=== PATIENT | male | born 1955 | race Caucasian/White ===

== ENCOUNTER 2019-09-01 04:45 | Inpatient (IN) | payer MEDICARE, MEDICAID ==
[~2019-09-01] VITALS: Ht 182.9 cm; Wt 141.5 kg
[2019-09-01] MEDS ORDERED: POTA1TAB14 PO (04:55)
[2019-09-01] MEDS ORDERED: CARV6.25 PO (05:39)
[2019-09-01] MEDS ORDERED: FURO80TA2 PO (05:39)
[2019-09-01] MEDS ORDERED: ATOR1TAB19 PO (05:39)
[2019-09-01] MEDS ORDERED: ALLO100T PO (05:39)
[2019-09-01] MEDS ORDERED: GLYB125TA PO (05:39)
[2019-09-01] MEDS ORDERED: ASPI81TA33 PO (05:39)
[2019-09-01] MEDS ORDERED: SPIR50TA4 PO (05:39)
[2019-09-01 06:20] LABS: BASO # 0.1 10^3/uL (0.0-0.2); BASO % 0.4 % (0.0-1.0); EOS % 0.1 % (0.0-3.0); HEMATOCRIT 45.3 % (42.0-52.0); HEMOGLOBIN 14.8 g/dl (13.5-17.5); LYMPH # 1.3 10^3/uL (1.5-5.0); LYMPH % 6.1 % (24.0-44.0); MEAN CORPUSCULAR HEMOGLOBIN 28.9 pg (27.0-33.0); MEAN CORPUSCULAR HGB CONC 32.7 g/dl (32.0-36.5); MEAN CORPUSCULAR VOLUME 88.5 fl (80.0-96.0); MONO % 10.1 % (0.0-5.0); NEUTROPHILS # 16.5 10^3/uL (1.5-8.5); NEUTROPHILS % 80.1 % (36.0-66.0); PLATELET COUNT, AUTOMATED 145 10^3/uL (150-450); RED BLOOD COUNT 5.12 10^6/uL (4.30-6.10); WHITE BLOOD COUNT 20.6 10^3/uL (4.0-10.0)
[2019-09-01 06:23] LABS: MONO # 2.1 10^3/uL (0.0-0.8)
[2019-09-01 06:32] LABS: ALBUMIN 3.7 GM/DL (3.2-5.2); ALT/SGPT 29 U/L (12-78); BILIRUBIN,DIRECT 0.3 MG/DL (0.0-0.2); BILIRUBIN,TOTAL 1.1 MG/DL (0.2-1.0); BLOOD UREA NITROGEN 107 MG/DL (7-18); CALCIUM LEVEL 9.6 MG/DL (8.8-10.2); CARBON DIOXIDE LEVEL 24 MEQ/L (21-32); CHLORIDE LEVEL 95 MEQ/L (98-107); CK-MB VALUE MASS < 1.0 NG/ML (<3.6); CPK CREATINE PHOSPHOKINASE 54 U/L (39-308); CREATININE FOR GFR 3.57 MG/DL (0.70-1.30); GLOMERULAR FILTRATION RATE 18.4 (>49); GLUCOSE, FASTING 191 MG/DL (70-100); MB/CK RELATIVE INDEX 1.85 (< OR =4); NT-PRO BNP 2589 PG/ML (<125); POTASSIUM SERUM 5.2 MEQ/L (3.5-5.1); SODIUM LEVEL 131 MEQ/L (136-145); TROPONIN I < 0.02 NG/ML (< 0.10)
[2019-09-01 07:06] LABS: INR 1.26; PROTHROMBIN TIME 15.5 SECONDS (11.8-14.0)
[2019-09-01 07:07] LABS: PARTIAL THROMBOPLASTIN TIME 28.6 SECONDS (25.0-38.4)
[2019-09-01] MEDS: HumaLOG INSULIN (NovoLOG) PER UNIT SC SCH ×4 (07:30→21:00)
--- NOTE | 2019-09-01 07:54 | REPVR ---
PROCEDURE INFORMATION: Exam: US Duplex Bilateral Lower Extremity Veins Exam date and time: 09/01/19 (7:07am) Age: 64 years old Clinical history: Bilateral leg pain and swelling. History of DVT. TECHNIQUE: Imaging protocol: Real-time duplex ultrasound of the Bilateral Lower Extremities with 2-D galo scale, color Doppler flow and spectral waveform analysis with image documentation. Complete exam focused on the bilateral lower extremity veins. COMPARISON: No relevant prior studies available FINDINGS: Right deep veins: (+) Occlusive thrombus extends from the right CFV to the right PTV trunk. Right superficial veins: Clot also seen in the right GSV vein, extending to the mid thigh level. Left deep veins: (+) Occlusive thrombus extends from the left CFV to the left PTV trunk. Left superficial veins: Clot also seen in the left GSV vein, extending 1 cm from the saphenofemoral junction. IMPRESSION: Bilateral deep venous thrombosis. Superficial clot also seen, bilaterally, involving the GSV vein. Electronically signed by: Samreen Ozuna On 09/01/2019 07:54:02 AM
[2019-09-01] MEDS ORDERED: GLUCAGON FOR INJ 1 MG VIAL (J1610) SC PRN (08:00)
[2019-09-01] MEDS ORDERED: DEXTROSE 50% 50 ML SYRINGE IV PRN (08:00)
[2019-09-01] MEDS ORDERED: GLUCOSE 4 GM CHEW TABLET PO PRN (08:00)
--- NOTE | 2019-09-01 08:20 | HPEPDOC ---
[facility] Medical History & Physical Date of Admission Sep 01, 2019 Date of Service: Sep 01, 2019 Attending Physician: CHALO GARCIA MD History and Physical CHIEF COMPLAINT: Shortness of Breath HISTORY OF PRESENT ILLNESS: 64-year-old male with past medical history of atrial fibrillation, CHF, status post pacemaker/AICD placement, coronary artery disease, open heart surgery (mitral of repair/replacement), chronic kidney disease, diabetes mellitus, DVT/PE status post IVC filter was recently admitted at another facility for acute on chronic kidney disease and discharged earlier this week, now presents to [facility] with worsening lower extremity swelling and dyspnea on exertion. Patient reports that he underwent a VQ scan at the other facility about 5-6 days ago which was negative, reports worsening swelling in bilateral lower extremities with tenderness in the calves bilaterally, denies any short of breath at rest but unable to walk more than 5- 10 feet before developing significant dyspnea on exertion. Patient was noted to desat into the 80s when asked to sit up in the bed for examination, otherwise, satting over 95%. He reports taking Xarelto for atrial fibrillation up until February of this year, when he had his open heart surgery he was told there were going to do something where he would no longer need anticoagulation, questionable removal of atrial appendages. He also reports placement of an IVC filter 5 years ago when he was diagnosed with DVT/PE. Otherwise, he denies any chest pain, nausea, vomiting, abdominal pain or diarrhea at this time. 10 point review of system is negative except for above PAST MEDICAL HISTORY: 1. CHF. 2. Atrial fibrillation. 3. Diabetes mellitus. 4. Coronary artery disease. 5. DVT/PE. 6. Chronic kidney disease PAST SURGICAL HISTORY: 1. Open-heart surgery (mitral valve repair/replacement). 2. Cholecystectomy. SOCIAL HISTORY: Never smoker. Denies alcohol. Denies drug use FAMILY HISTORY: Parents with lung cancer and throat cancer ALLERGIES: Please see below. HOME MEDICATIONS: Please see below. PHYSICAL EXAMINATION: VITAL SIGNS: Please see below. GENERAL: No distress, morbidly obese HEENT: Normocephalic, atraumatic, moist mucous membranes NECK: Supple CARDIOVASCULAR EXAMINATION: S1, S2, distant, no murmurs RESPIRATORY EXAMINATION: Clear to auscultation, diminished in the bases, no wheezing ABDOMINAL EXAMINATION: Soft, nontender, nondistended, positive bowel sounds EXTREMITIES: Bilateral lower extremity pitting edema SKIN: No rash NEUROLOGICAL EXAMINATION: Alert and oriented 3, no focal deficits PSYCHIATRIC EXAMINATION: Calm and cooperative LABORATORY DATA: See below. IMAGING: Lower extremity Doppler with bilateral lower extremity DVTs MICROBIOLOGY: Please see below. ASSESSMENT: 64-year-old male with extensive medical history who was recently hospitalized, presents with lower sugar swelling and shortness of breath, found to have bilateral lower extremity DVTs. PLAN: 1. Bilateral DVTs. Reportedly has an IVC filter, placed 5 years ago, heparin drip started with bolus, ED contacted vascular surgery for possible intervention. Clinically patient does not appear to have massive/submassive PE at this time, if shortness of breath is related to PE, it would not change the management at this time, cannot have CTA due to poor renal function, no acute indication for VQ scan at this time. 2. CHF. Status post pacemaker/AICD, TTE pending, volume status appears close to patient's baseline, continue oral Lasix at home meds for now. 3. Coronary artery disease. Stable, continue home meds. (Aspirin, statin, beta braden) 4. Diabetes mellitus. Sliding scale insulin with fingersticks before every meal and at bedtime 5. Atrial fibrillation. Reportedly had surgical intervention to prevent embolic phenomena (possible removal of atrial appendage), continue rate control with Coreg. DVT prophylaxis: On heparin drip. GI prophylaxis: Not needed at this time Vital Signs Vital Signs Date Time Temp Pulse Resp B/P (MAP) Pulse Ox O2 Delivery O2 Flow Rate FiO2 09/01/19 07:00 60 129/72 (91) 97 09/01/19 04:45 96.6 20 Room Air Laboratory Data Labs 24H Laboratory Tests 2 09/01/19 05:59: Immature Granulocyte % (Auto) 3.2H, Neutrophils (%) (Auto) 80.1H, Lymphocytes (%) (Auto) 6.1L, Monocytes (%) (Auto) 10.1H, Eosinophils (%) (Auto) 0.1, Basophils (%) (Auto) 0.4, Neutrophils # (Auto) 16.5H, Lymphocytes # (Auto) 1.3L, Monocytes # (Auto) 2.1H, Eosinophils # (Auto) 0.0, Basophils # (Auto) 0.1, Nucleated Red Blood Cells % (auto) 0.0, Anion Gap 12, Glomerular Filtration Rate 18.4L, Calcium Level 9.6, Total Bilirubin 1.1H, Direct Bilirubin 0.3H, Aspartate Amino Transf (AST/SGOT) 25, Alanine Aminotransferase (ALT/SGPT) 29, Alkaline Phosphatase 143H, Total Creatine Kinase 54, Creatine Kinase MB < 1.0, Creatine Kinase MB Relative Index 1.85, Troponin I < 0.02, XX-Sgu-K-Type Natriuretic Peptide 2589H, Total Protein 8.0, Albumin 3.7, Albumin/Globulin Ratio 0.86L 09/01/19 06:42: Prothrombin Time 15.5H, Prothromb Time International Ratio 1.26, Activated Partial Thromboplast Time 28.6 09/01/19 07:07: Lactic Acid Level 1.7 CBC/BMP Laboratory Tests 09/01/19 05:59 Microbiology Microbiology 09/01/19 Blood Culture, Received Pending Home Medications Scheduled Allopurinol (Allopurinol) 100 Mg Tablet, 100 MG PO DAILY Aspirin (Aspirin EC) 81 Mg Tablet.dr, 81 MG PO DAILY Atorvastatin Calcium (Atorvastatin Calcium) 10 Mg Tablet, 10 MG PO daily Carvedilol (Carvedilol) 6.25 Mg Tablet, 6.25 MG PO BID Furosemide (Furosemide) 80 Mg Tablet, 80 MG PO DAILY Glyburide (Glyburide) 1.25 Mg Tablet, 1.25 MG PO DAILY Potassium Chloride (Potassium Chloride) 20 Meq Tablet.er, 60 MEQ PO BID Spironolactone (Spironolactone) 50 Mg Tablet, 50 MG PO BID PT STATES RECENT INCREASE IN DOSE Allergies Coded Allergies: No Known Drug Allergies (Verified Allergy, Unknown, 09/01/19) A-FIB/CHADSVASC A-FIB History Current/History of A-Fib/PAF?: Yes Current PO Anticoag Therapy: Yes CHALO GARCIA MD Sep 01, 2019 08:20
[2019-09-01] MEDS ORDERED: HEPARIN SOD (PORCINE) 5000 UNITS/ML VIAL IV ONE (08:30)
--- NOTE | 2019-09-01 08:39 | REP ---
Portable chest x-ray: Single view. History: Dyspnea and cough. Findings: Monitoring electrodes are seen. A multi lead pacemaker is noted in the heart via the left side. The lungs are well inflated and clear. Heart size is normal. A aortic valve replacement ring is visible. Pulmonary vasculature is not increased. Pleural angles are sharp. Impression: No active disease. Status post aortic valve replacement. Pacemaker. Electronically Signed by Kenny Spain MD 09/01/2019 08:30 A
[2019-09-01] MEDS: HEPARIN DRIP 25,000 UNITS in IV 1 EA IV SCH (09:42)
[2019-09-01 10:42] VITALS: BP 142/88
[2019-09-01 11:33] VITALS: BP 142/78
--- NOTE | 2019-09-01 11:33 | CR.PDOC ---
General Date of Consultation: Sep 01, [address] Valente. HPI: HISTORY OF PRESENT ILLNESS: 64-year-old male admitted to [place] for acute on chronic kidney disease and discharged earlier this week. Admitted to [facility] 09/01/19 with worsening lower extremity swelling and dyspnea on exertion. Patient reports that he underwent a VQ scan at the other facility about 5-6 days ago which was negative. The pt reports worsening swelling in bilateral lower extremities with tenderness in the calves bilaterally for the past 5-6 days. Pt denies dyspnea at rest but reports [place] with walking 5-10 feet. The pt reports a h/o DVT RLE and IVC filter placement about 4-5 yrs ago at another facility. States he was on Coumadin was that it was d/cd 05/29. Denies any fevers, chills, chest pain, nausea, vomiting, abdominal pain,tyson rrhea, urinary complaints at this time. Vascular Surgery consulted, TTE pending. PAST MEDICAL HISTORY: CAD VHD CHF Atrial fibrillation states was taken off Coumadin 05/29. Diabetes mellitus. H/O DVT RLE/IVC filter placement CKD IV PAST SURGICAL HISTORY: mitral valve replacement status post pacemaker/AICD placement Cholecystectomy IVC filter 2013 SOCIAL HISTORY: Non smoker. Denies alcohol. Denies drug use FAMILY HISTORY: Parents with lung cancer and throat cancer, denies FH of clotting disorder. ROS: As noted in HPI, otherwise 11pt ROS of systems reviewed and unremarkable. PE: GEN: 64yoM, No acute distress, sitting resting in bed. Alert and oriented x 3. HEENT: Normocephalic, atraumatic. Moist mucous membranes. CHEST: +S1, +S2 LUNGS: Clear to auscultation bilaterally. No accessory muscle use. ABD: Round, soft, non-tender, non-distended. +Bowel sounds throughout. EXT: Ecchymosis Rt calf area, TTP Rt calf area, edema BL LEs. NEURO: Alert and oriented x 3. Cranial nerves III-XII are intact. No focal deficits appreciated. LE US PROCEDURE INFORMATION: Exam: US Duplex Bilateral Lower Extremity Veins Exam date and time: 09/01/19 (7:07am) Age: 64 years old Clinical history: Bilateral leg pain and swelling. History of DVT. TECHNIQUE: Imaging protocol: Real-time duplex ultrasound of the Bilateral Lower Extremities with 2-D galo scale, color Doppler flow and spectral waveform analysis with image documentation. Complete exam focused on the bilateral lower extremity veins. COMPARISON: No relevant prior studies available FINDINGS: Right deep veins: (+) Occlusive thrombus extends from the right CFV to the right PTV trunk. Right superficial veins: Clot also seen in the right GSV vein, extending to the mid thigh level. Left deep veins: (+) Occlusive thrombus extends from the left CFV to the left PTV trunk. Left superficial veins: Clot also seen in the left GSV vein, extending 1 cm from the saphenofemoral junction. IMPRESSION: Bilateral deep venous thrombosis. Superficial clot also seen, bilaterally, involving the GSV vein. Electronically signed by: Samreen Ozuna On 09/01/2019 07:54:02 AM A&P: Bilateral DVT. Pt states IVC filter, placed 5 years ago. H/O prior DVT RLE. The pt is reviewed as per Dr Valente. VSS currently. HR 60bpm, O2 sat 100 RA, BP 142/88. Pt states AC was discontinued 05/29, Pt states previously on Coumadin. Continue with heparin drip S/P Bolus, continue per protocol. Pt cannot have CTA due to poor renal function. TTE pending to further asses, Dr Valente will provide further recommendations pending results. Thank you for your consultation. We will continue to follow along with you. Vital Signs/I&O Vital Signs Date Time Temp Pulse Resp B/P (MAP) Pulse Ox O2 Delivery O2 Flow Rate FiO2 09/01/19 10:42 98.0 60 18 142/88 (106) 100 Room Air Laboratory Data Labs 24H Laboratory Tests 2 09/01/19 05:59: Immature Granulocyte % (Auto) 3.2H, Neutrophils (%) (Auto) 80.1H, Lymphocytes (%) (Auto) 6.1L, Monocytes (%) (Auto) 10.1H, Eosinophils (%) (Auto) 0.1, Ba sophils (%) (Auto) 0.4, Neutrophils # (Auto) 16.5H, Lymphocytes # (Auto) 1.3L, Monocytes # (Auto) 2.1H, Eosinophils # (Auto) 0.0, Basophils # (Auto) 0.1, Nucleated Red Blood Cells % (auto) 0.0, Anion Gap 12, Glomerular Filtration Rate 18.4L, Calcium Level 9.6, Total Bilirubin 1.1H, Direct Bilirubin 0.3H, Aspartate Amino Transf (AST/SGOT) 25, Alanine Aminotransferase (ALT/SGPT) 29, Alkaline Phosphatase 143H, Total Creatine Kinase 54, Creatine Kinase MB < 1.0, Creatine Kinase MB Relative Index 1.85, Troponin I < 0.02, TV-Ydx-P-Type Natriuretic Peptide 2589H, Total Protein 8.0, Albumin 3.7, Albumin/Globulin Ratio 0.86L 09/01/19 06:42: Prothrombin Time 15.5H, Prothromb Time International Ratio 1.26, Activated Partial Thromboplast Time 28.6 09/01/19 07:07: Lactic Acid Level 1.7 09/01/19 09:07: Bedside Glucose (Misc Panel) 165H CBC/BMP Laboratory Tests 09/01/19 05:59 Microbiology Microbiology 09/01/19 Blood Culture, Received Pending Allergies Coded Allergies: No Known Drug Allergies (Verified Allergy, Unknown, 09/01/19) Home Medications Scheduled Allopurinol (Allopurinol) 100 Mg Tablet, 100 MG PO DAILY, (Reported) Aspirin (Aspirin EC) 81 Mg Tablet.dr, 81 MG PO DAILY, (Reported) Atorvastatin Calcium (Atorvastatin Calcium) 10 Mg Tablet, 10 MG PO daily , (Reported) Carvedilol (Carvedilol) 6.25 Mg Tablet, 6.25 MG PO BID, (Reported) Furosemide (Furosemide) 80 Mg Tablet, 80 MG PO DAILY, (Reported) Glyburide (Glyburide) 1.25 Mg Tablet, 1.25 MG PO DAILY, (Reported) Potassium Chloride (Potassium Chloride) 20 Meq Tablet.er, 60 MEQ PO BID, (Reported) Spironolactone (Spironolactone) 50 Mg Tablet, 50 MG PO BID, (Reported) PT STATES RECENT INCREASE IN DOSE Anna Fry Sep 01, 2019 11:33
--- NOTE | 2019-09-01 13:12 | ECGEPIP ---
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
[2019-09-01 16:00] VITALS: BP 133/78
[2019-09-01 20:00] VITALS: BP 167/83
--- NOTE | 2019-09-01 20:16 | IPNPDOC ---
Date Seen The patient was seen on 09/01/19. Progress Note Patient seen and examined. Please see Anna KIM note for full consultation. I reviewed the patient's TTE with ataxia perform this study. Based on imaging I do not see significant pulmonary hypertension, right atrial enlargement, or increase right atrial pressures. Also noted is good inflow through the inferior vena cava, which is helpful as it indicates that the patient does not have an occlusion of his inferior vena cava from thrombus within his pre-existing IVC filter. I would say it is unlikely based on these findings that the patient has a large pulmonary embolus. He may have had shortness of breath due to deconditioning from recent hospitalization for acute on chronic renal failure, bilateral lower extremity DVTs, and pre-existing cardiopulmonary issues. Based on this, I do not feel the patient needs to risk additional candidate injury by pursuing contrast imaging of the chest, nor do I feel he needs TPA thrombolysis for PE. Regarding his bilateral lower extremity DVTs, I do not think this particular patient would tolerate laying prone for TPA thrombolysis catheter placement in the lower extremities. He does not have profound swelling, although bilateral lower extremity edema is present. He does not have skin changes consistent with ischemia from venous obstruction, nor does he have any significant pain while resting in bed with his legs elevated. At this point, I think the best option is medical management of the DVTs. The patient is on an appropriate heparin drip, and we can convert him to oral anticoagulation over the next day or 2 depending on his clinical status. I discussed with the hospitalist team that the patient didn't tolerate Coumadin before, but he was a bit hesitant about restarting it because it was very inconvenient for him to have to constantly checked the INR. However, he did not have good results with Xarelto in the past. I think it might be worthwhile to try a different oral anticoagulation, possibly eliquis, and see if he does okay with this and if not convert him back to Coumadin. I also think it would be worthwhile to send a hypercoagulable profile, and the hospitalist is agreeable to do this. Continue with bilateral lower extremity elevation above the level of the heart to help with venous return. When he goes home, 20-30 mmHg calf high or thigh-high compression would also be beneficial if the patient tolerate it. He will need follow-up in 3 months with a repeat venous duplex at that time. VS, I&O, 24H, Fishbone Vital Signs/I&O Vital Signs Date Time Temp Pulse Resp B/P (MAP) Pulse Ox O2 Delivery O2 Flow Rate FiO2 09/01/19 16:00 97.5 60 18 133/78 (96) 98 Room Air Laboratory Data 24H LABS Laboratory Tests 2 09/01/19 05:59: Immature Granulocyte % (Auto) 3.2H, Neutrophils (%) (Auto) 80.1H, Lymphocytes (%) (Auto) 6.1L, Monocytes (%) (Auto) 10.1H, Eosinophils (%) (Auto) 0.1, Basophils (%) (Auto) 0.4, Neutrophils # (Auto) 16.5H, Lymphocytes # (Auto) 1.3L, Monocytes # (Auto) 2.1H, Eosinophils # (Auto) 0.0, Basophils # (Auto) 0.1, Nucleated Red Blood Cells % (auto) 0.0, Anion Gap 12, Glomerular Filtration Rate 18.4L, Calcium Level 9.6, Total Bilirubin 1.1H, Direct Bilirubin 0.3H, Aspartate Amino Transf (AST/SGOT) 25, Alanine Aminotransferase (ALT/SGPT) 29, Alkaline Phosphatase 143H, Total Creatine Kinase 54, Creatine Kinase MB < 1.0, Creatine Kinase MB Relative Index 1.85, Troponin I < 0.02, BH-Pqf-Y-Type Natriuretic Peptide 2589H, Total Protein 8.0, Albumin 3.7, Albumin/Globulin Ratio 0.86L 09/01/19 06:42: Prothrombin Time 15.5H, Prothromb Time International Ratio 1.26, Activated Partial Thromboplast Time 28.6 09/01/19 07:07: Lactic Acid Level 1.7 09/01/19 09:07: Bedside Glucose (Misc Panel) 165H 09/01/19 12:02: Bedside Glucose (Misc Panel) 177H 09/01/19 16:14: Activated Partial Thromboplast Time 149.3*H 09/01/19 17:31: Bedside Glucose (Misc Panel) 160H CBC/BMP Laboratory Tests 09/01/19 05:59 Microbiology Microbiology 09/01/19 Blood Culture, Received Pending AMADA BOYD MD Sep 01, 2019 20:15
[2019-09-01] MEDS: POTASSIUM CHLORIDE 10 MEQ SR TABLET PO SCH (21:00)
[2019-09-01] MEDS: CARVedilol 6.25 MG TAB PO SCH (22:19)
[2019-09-01] MEDS: SPIRONOLACTONE 50 MG TAB PO SCH (22:19)
[2019-09-02] VITALS: BP 126/89
[2019-09-02 04:00] VITALS: BP 129/68
[2019-09-02 06:17] LABS: HEMATOCRIT 41.9 % (42.0-52.0); MEAN CORPUSCULAR HGB CONC 33.4 g/dl (32.0-36.5); MEAN CORPUSCULAR VOLUME 86.9 fl (80.0-96.0); PLATELET COUNT, AUTOMATED 171 10^3/uL (150-450); RED BLOOD COUNT 4.82 10^6/uL (4.30-6.10); WHITE BLOOD COUNT 15.9 10^3/uL (4.0-10.0)
[2019-09-02 06:41] LABS: ALBUMIN 3.3 GM/DL (3.2-5.2); BILIRUBIN,TOTAL 1.4 MG/DL (0.2-1.0); CALCIUM LEVEL 9.2 MG/DL (8.8-10.2); CREATININE FOR GFR 3.64 MG/DL (0.70-1.30); MAGNESIUM LEVEL 2.3 MG/DL (1.8-2.4); POTASSIUM SERUM 4.7 MEQ/L (3.5-5.1); TOTAL PROTEIN 7.7 GM/DL (6.4-8.2)
[2019-09-02] MEDS: HEPARIN SOD (PORCINE) 5000 UNITS/ML VIAL IV PRN ×2 (06:45→21:43)
[2019-09-02] MEDS: HEPARIN DRIP 25,000 UNITS in IV 1 EA IV SCH (06:49)
[2019-09-02] MEDS: HumaLOG INSULIN (NovoLOG) PER UNIT SC SCH ×4 (07:51→21:00)
[2019-09-02 08:00] VITALS: BP 125/76
[2019-09-02] MEDS: ALLOPURINOL 100 MG TAB PO SCH (08:25)
[2019-09-02] MEDS: POTASSIUM CHLORIDE 10 MEQ SR TABLET PO SCH (08:26)
[2019-09-02] MEDS: ASPIRIN 81 MG ENTERIC TAB PO SCH (08:26)
[2019-09-02] MEDS: CARVedilol 6.25 MG TAB PO SCH ×2 (08:26→20:32)
[2019-09-02] MEDS: ATORVASTATIN 10 MG TAB PO SCH (08:26)
[2019-09-02] MEDS: SPIRONOLACTONE 50 MG TAB PO SCH (08:27)
[2019-09-02] MEDS ORDERED: ONDANSETRON 4 MG ORAL DISINTEGRATING TAB (Q0162 PER 1MG) SL PRN (08:30)
[2019-09-02] MEDS ORDERED: FUROSEMIDE 80 MG TAB PO SCH (09:00)
[2019-09-02] MEDS: NS 1,000 ML IV SCH ×2 (11:00→21:03)
[2019-09-02 12:00] VITALS: BP 138/92
[2019-09-02] MEDS ORDERED: MIRALAX *UNIT DOSE* 17GM PACKET PO PRN (13:00)
--- NOTE | 2019-09-02 13:52 | IPNPDOC ---
Date Seen The patient was seen on 09/02/19. Progress Note HISTORY OF PRESENT ILLNESS: 64-year-old male with past medical history of atrial fibrillation, CHF, status post pacemaker/AICD placement, coronary artery disease, open heart surgery (mitral of repair/replacement), chronic kidney disease, diabetes mellitus, DVT/PE status post IVC filter was recently admitted at another facility for acute on chronic kidney disease and discharged earlier this week, now presents to [facility] with worsening lower extremity swelling and dyspnea on exertion. Patient reports that he underwent a VQ scan at the other facility about 5-6 days ago which was negative, reports worsening swelling in bilateral lower extremities with tenderness in the calves bilaterally, denies any short of breath at rest but unable to walk more than 5- 10 feet before developing significant dyspnea on exertion. Patient was noted to desat into the 80s when asked to sit up in the bed for examination, otherwise, satting over 95%. He reports taking Xarelto for atrial fibrillation up until February of this year, when he had his open heart surgery he was told there were going to do something where he would no longer need anticoagulation, questionable removal of atrial appendages. He also reports placement of an IVC filter 5 years ago when he was diagnosed with DVT/PE. Otherwise, he denies any chest pain, nausea, vomiting, abdominal pain or diarrhea at this time. 09/02/2019 Patient resting in chair without any complaints, denies short of breath, chest pain, nausea, vomiting, abdominal pain or diarrhea. Patient reports mild improvement in lower extremity pain. 10 point review of system is negative except for above PHYSICAL EXAMINATION: VITAL SIGNS: Please see below. GENERAL: No distress, morbidly obese HEENT: Normocephalic, atraumatic, moist mucous membranes NECK: Supple CARDIOVASCULAR EXAMINATION: S1, S2, distant, no murmurs RESPIRATORY EXAMINATION: Clear to auscultation, diminished in the bases, no wheezing ABDOMINAL EXAMINATION: Soft, nontender, nondistended, positive bowel sounds EXTREMITIES: Bilateral lower extremity pitting edema SKIN: No rash NEUROLOGICAL EXAMINATION: Alert and oriented 3, no focal deficits PSYCHIATRIC EXAMINATION: Calm and cooperative LABORATORY DATA: See below. IMAGING: Lower extremity Doppler with bilateral lower extremity DVTs MICROBIOLOGY: Please see below. ASSESSMENT: 64-year-old male with extensive medical history who was recently hospitalized, presents with lower sugar swelling and shortness of breath, found to have bilateral lower extremity DVTs. PLAN: 1. Bilateral DVTs. has an IVC filter, placed 5 years ago, continue heparin drip for now, we'll consider switching to Eliquis in the next 24-48 hours. Vascular surgery consult appreciated, continue medical management for now. Hypercoagulable workup pending 2. Acute on chronic kidney disease. Baseline creatinine unknown, hold diuretics, start gentle IV hydration with normal saline at 100 mL per hour, renal ultrasound pending, will consider ne phrology consult if renal function not improving. 3. CHF. Status post pacemaker/AICD, TTE pending, volume status appears close to patient's baseline. 4. Coronary artery disease. Stable, continue home meds. (Aspirin, statin, beta braden) 5. Diabetes mellitus. Sliding scale insulin with fingersticks before every meal and at bedtime 6. Atrial fibrillation. Reportedly had surgical intervention to prevent embolic phenomena (possible removal of atrial appendage), continue rate control with Coreg. DVT prophylaxis: On heparin drip. GI prophylaxis: Not needed at this time VS, I&O, 24H, Fishbone Vital Signs/I&O Vital Signs Date Time Temp Pulse Resp B/P (MAP) Pulse Ox O2 Delivery O2 Flow Rate FiO2 09/02/19 12:00 97.0 62 19 138/92 (107) 99 Room Air I&O- Last 24 Hours up to 6 AM 09/02/19 06:00 Intake Total 1693 ml Output Total 1200 ml Balance 493 ml Laboratory Data 24H LABS Laboratory Tests 2 09/01/19 16:14: Activated Partial Thromboplast Time 149.3*H 09/01/19 17:31: Bedside Glucose (Misc Panel) 160H 09/01/19 21:10: Bedside Glucose (Misc Panel) 185H 09/02/19 00:18: Activated Partial Thromboplast Time 67.7H 09/02/19 05:53: Nucleated Red Blood Cells % (auto) 0.0, Activated Partial Thromboplast Time 61.3H, Anion Gap 11, Glomerular Filtration Rate 18.0L, Calcium Level 9.2, Magnesium Level 2.3, Total Bilirubin 1.4H, Aspartate Amino Transf (AST/SGOT) 15, Alanine Aminotransferase (ALT/SGPT) 27, Alkaline Phosphatase 116, Total Protein 7.7, Albumin 3.3, Albumin/Globulin Ratio 0.75L 09/02/19 10:14: 09/02/19 11:47: Bedside Glucose (Misc Panel) 163H 09/02/19 13:01: Activated Partial Thromboplast Time 113.7H CBC/BMP Laboratory Tests 09/02/19 05:53 Microbiology Microbiology 09/01/19 Blood Culture - Preliminary, Resulted No growth after 24 hours . All specim... CHALO GARCIA MD Sep 02, 2019 13:52
[2019-09-02 16:00] VITALS: BP 120/72
--- NOTE | 2019-09-02 19:16 | REPVR ---
PROCEDURE INFORMATION: Exam: US Retroperitoneal Limited, Kidneys Exam date and time: 09/02/2019 4:35 PM Age: 64 years old Clinical history: Abnormal findings; Abnormal lab test; Abnormal kidney function lab tests; Additional info: Nayan/ckd TECHNIQUE: Imaging protocol: Real-time ultrasound of the retroperitoneum with image documentation. Examination was focused on the kidneys. COMPARISON: No relevant prior studies available. FINDINGS: Right kidney: Right kidney measures 10.8 x 4.8 x 5.7 cm. Normal echogenicity of the right kidney. No hydronephrosis. Left kidney: Left kidney measures 9.7 x 4.0 x 5.3 cm. Increased echogenicity of the left kidney. No hydronephrosis. Bladder: Bladder measures 14.9 x 10.1 x 6.9 cm with pre-void volume of 678 cc. Bilateral jets not seen. IMPRESSION: Echogenic left kidney. Clinical correlation with medical renal disease. Electronically signed by: Harley Harry On 09/02/2019 19:16:26 PM
[2019-09-02 20:00] VITALS: BP 127/70
[2019-09-03] VITALS: BP 114/65
[2019-09-03] MEDS: HEPARIN DRIP 25,000 UNITS in IV 1 EA IV SCH ×2 (01:01→19:24)
[2019-09-03 04:00] VITALS: BP 134/69
[2019-09-03 04:08] LABS: HEMATOCRIT 39.3 % (42.0-52.0); HEMOGLOBIN 13.1 g/dl (13.5-17.5); MEAN CORPUSCULAR HGB CONC 33.3 g/dl (32.0-36.5); MEAN CORPUSCULAR VOLUME 86.9 fl (80.0-96.0); PLATELET COUNT, AUTOMATED 180 10^3/uL (150-450); RED BLOOD COUNT 4.52 10^6/uL (4.30-6.10); WHITE BLOOD COUNT 14.8 10^3/uL (4.0-10.0)
[2019-09-03 04:53] LABS: BILIRUBIN,TOTAL 0.8 MG/DL (0.2-1.0); CALCIUM LEVEL 8.6 MG/DL (8.8-10.2); CREATININE FOR GFR 3.21 MG/DL (0.70-1.30); GLOMERULAR FILTRATION RATE 20.8 (>49); MAGNESIUM LEVEL 2.1 MG/DL (1.8-2.4); PHOSPHORUS LEVEL 4.8 MG/DL (2.5-4.9); POTASSIUM SERUM 4.8 MEQ/L (3.5-5.1)
[2019-09-03] MEDS: NS 1,000 ML IV SCH ×2 (07:21→17:27)
[2019-09-03 08:00] VITALS: BP 149/72
[2019-09-03] MEDS: HumaLOG INSULIN (NovoLOG) PER UNIT SC SCH ×4 (08:36→20:36)
[2019-09-03] MEDS: ALLOPURINOL 100 MG TAB PO SCH (08:37)
[2019-09-03] MEDS: ATORVASTATIN 10 MG TAB PO SCH (08:37)
[2019-09-03] MEDS: ASPIRIN 81 MG ENTERIC TAB PO SCH (08:37)
[2019-09-03] MEDS: CARVedilol 6.25 MG TAB PO SCH ×2 (08:38→20:34)
[2019-09-03] MEDS ORDERED: PANTOPRAZOLE 40MG INJ (PROTONIX) (C9113) IV ONE (11:00)
[2019-09-03 12:00] VITALS: BP 137/67
[2019-09-03 16:00] VITALS: BP 125/62
--- NOTE | 2019-09-03 19:42 | IPNPDOC ---
Date Seen The patient was seen on 09/03/19. Progress Note HISTORY OF PRESENT ILLNESS: 64-year-old male with past medical history of atrial fibrillation, CHF, status post pacemaker/AICD placement, coronary artery disease, open heart surgery (mitral of repair/replacement), chronic kidney disease, diabetes mellitus, DVT/PE status post IVC filter was recently admitted at another facility for acute on chronic kidney disease and discharged earlier this week, now presents to [facility] with worsening lower extremity swelling and dyspnea on exertion. Patient reports that he underwent a VQ scan at the other facility about 5-6 days ago which was negative, reports worsening swelling in bilateral lower extremities with tenderness in the calves bilaterally, denies any short of breath at rest but unable to walk more than 5- 10 feet before developing significant dyspnea on exertion. Patient was noted to desat into the 80s when asked to sit up in the bed for examination, otherwise, satting over 95%. He reports taking Xarelto for atrial fibrillation up until February of this year, when he had his open heart surgery he was told there were going to do something where he would no longer need anticoagulation, questionable removal of atrial appendages. He also reports placement of an IVC filter 5 years ago when he was diagnosed with DVT/PE. Otherwise, he denies any chest pain, nausea, vomiting, abdominal pain or diarrhea at this time. 09/02/2019 Patient resting in chair without any complaints, denies short of breath, chest pain, nausea, vomiting, abdominal pain or diarrhea. Patient reports mild improvement in lower extremity pain. 09/03/2019 Patient comfortable in bed, reports mild epigastric pain with reflux, no other complaints at this time. He denies any short of breath, chest pain, nausea, vomiting or diarrhea. 10 point review of system is negative except for above PHYSICAL EXAMINATION: VITAL SIGNS: Please see below. GENERAL: No distress, morbidly obese HEENT: Normocephalic, atraumatic, moist mucous membranes NECK: Supple CARDIOVASCULAR EXAMINATION: S1, S2, distant, no murmurs RESPIRATORY EXAMINATION: Clear to auscultation, diminished in the bases, no wheezing ABDOMINAL EXAMINATION: Soft, nontender, nondistended, positive bowel sounds EXTREMITIES: Bilateral lower extremity pitting edema SKIN: No rash NEUROLOGICAL EXAMINATION: Alert and oriented 3, no focal deficits PSYCHIATRIC EXAMINATION: Calm and cooperative LABORATORY DATA: See below. IMAGING: Lower extremity Doppler with bilateral lower extremity DVTs MICROBIOLOGY: Please see below. ASSESSMENT: 64-year-old male with extensive medical history who was recently hospitalized, presents with lower sugar swelling and shortness of breath, found to have bilateral lower extremity DVTs. PLAN: 1. Bilateral DVTs. has an IVC filter, placed 5 years ago, continue heparin drip for now, we'll consider switching to Eliquis in the next 24-48 hours. Vascular surgery consult appreciated, continue medical management for now. Hypercoagulable workup pending Protonix started for GI prophylaxis 2. Acute on chronic kidney disease. Baseline creatinine unknown, hold diuretics, continue gentle IV hydration with normal saline at 100 mL per hour, renal ultrasound negative, renal function improving. 3. CHF. Status post pacemaker/AICD, TTE pending, volume status appears close to patient's baseline. 4. Coronary artery disease. Stable, continue home meds. (Aspirin, statin, beta braden) 5. Diabetes mellitus. Sliding scale insulin with fingersticks before every meal and at bedtime 6. Atrial fibrillation. Reportedly had surgical intervention to prevent embolic phenomena (possible removal of atrial appendage), continue rate control with Coreg. DVT prophylaxis: On heparin drip. GI prophylaxis: Protonix VS, I&O, 24H, Fishbone Vital Signs/I&O Vital Signs Date Time Temp Pulse Resp B/P (MAP) Pulse Ox O2 Delivery O2 Flow Rate FiO2 09/03/19 16:00 98.6 61 20 125/62 (83) 98 Room Air I&O- Last 24 Hours up to 6 AM 09/03/19 06:00 Intake Total 1802 ml Output Total 2600 ml Balance -798 ml Laboratory Data 24H LABS Laboratory Tests 2 09/02/19 20:28: Bedside Glucose (Misc Panel) 327H 09/02/19 20:36: Activated Partial Thromboplast Time 64.4H 09/02/19 21:56: Bedside Glucose (Misc Panel) 133H 09/03/19 03:54: Activated Partial Thromboplast Time 96.7H, Nucleated Red Blood Cells % (auto) 0.0, Anion Gap 12, Glomerular Filtration Rate 20.8L, Calcium Level 8.6L, Phosphorus Level 4.8, Magnesium Level 2.1, Total Bilirubin 0.8, Aspartate Amino Transf (AST/SGOT) 14, Alanine Aminotransferase (ALT/SGPT) 24, Alkaline Phosphatase 107, Total Protein 7.0, Albumin 3.0L, Albumin/Globulin Ratio 0.75L 09/03/19 09:52: Activated Partial Thromboplast Time 82.8H 09/03/19 12:04: Bedside Glucose (Misc Panel) 146H 09/03/19 17:12: Bedside Glucose (Misc Panel) 153H CBC/BMP Laboratory Tests 09/03/19 03:54 Microbiology Microbiology 09/02/19 Stool Occult Blood (CAPRICE) - Final, Complete 09/01/19 Blood Culture - Preliminary, Resulted No Growth after 48 hours. All Specime... CHALO GARCIA MD Sep 03, 2019 19:42
[2019-09-03 20:00] VITALS: BP 127/58
[2019-09-04] VITALS (7 sets, daily range): BP systolic 110–134; BP diastolic 65–80
--- NOTE | 2019-09-04 00:12 | ECHO ---
DATE OF PROCEDURE: 09/01/2019 REFERRING PROVIDER: Dr. Lo PATIENT LOCATION: Room 3224. REASON FOR THE STUDY: Congestive heart failure. 2D MEASUREMENTS: IVS: 1.4 cm LV: 5.5 cm LVPW: 1.4 cm LA: 3.7 cm Aorta: 2.9 cm IVC: 2.3 cm DOPPLER MEASUREMENTS: Peak velocity across the aortic valve: 1.1 m/s Peak velocity across the LVOT: 0.59 m/s Mitral E: 0.88 2D COMMENTS: 1. Mildly increased left ventricular wall thickness with mildly dilated left ventricle but a depressed global left ventricular systolic function. There was diffuse hypokinesis. The estimated left ventricular systolic ejection fraction is 30-35%. 2. Subjectively, the left atrium appeared to be mildly enlarged. Normal right atrium and right ventricle. 3. The atrial septum appeared to be normal without evidence of defect or shunt. 4. Normal aortic root. 5. No pericardial effusion seen. 6. Mildly calcified aortic valve with normal leaflet excursion. Mildly calcified mitral annulus with normal anterior mitral valve leaflet motion. Normal tricuspid valve and pulmonic valve. The proximal pulmonary artery branches were not well visualized. 7. The inferior vena cava was mildly enlarged; central venous pressure is most likely elevated. DOPPLER: No significant valvular abnormalities detected but trace mitral regurgitation. Assessment of the left ventricular diastolic function was limited in view of the underlying atrial fibrillation. IMPRESSION: 1. Moderately severe global left ventricular systolic dysfunction with diffuse hypokinesis. Left ventricular diastolic function was undetermined. 2. Aortic valve sclerosis without stenosis or aortic regurgitation. 3. Mitral annulus calcification with trace mitral regurgitation and probably mildly enlarged left atrium. 4. The inferior vena cava was mildly enlarged; central venous pressure might be elevated. 5. Not mentioned above, pacemaker wire artifact noted. Also noted were findings consistent with prior mitral valve repair. MTDD
[2019-09-04] MEDS: NS 1,000 ML IV SCH ×2 (03:21→12:56)
[2019-09-04 07:56] LABS: CREATININE FOR GFR 2.83 MG/DL (0.70-1.30); GLOMERULAR FILTRATION RATE 24.1 (>49); MAGNESIUM LEVEL 2.1 MG/DL (1.8-2.4); POTASSIUM SERUM 4.8 MEQ/L (3.5-5.1)
[2019-09-04] MEDS: CARVedilol 6.25 MG TAB PO SCH ×2 (08:22→21:00)
[2019-09-04] MEDS: ALLOPURINOL 100 MG TAB PO SCH (08:22)
[2019-09-04] MEDS: ASPIRIN 81 MG ENTERIC TAB PO SCH (08:22)
[2019-09-04] MEDS: ATORVASTATIN 10 MG TAB PO SCH (08:22)
[2019-09-04] MEDS: PANTOPRAZOLE 40MG TAB (PROTONIX) PO SCH (08:22)
[2019-09-04] MEDS: HumaLOG INSULIN (NovoLOG) PER UNIT SC SCH ×4 (08:23→21:00)
[2019-09-04 09:00] LABS: HEMATOCRIT 39.9 % (42.0-52.0); HEMOGLOBIN 12.9 g/dl (13.5-17.5); MEAN CORPUSCULAR HEMOGLOBIN 28.9 pg (27.0-33.0); MEAN CORPUSCULAR HGB CONC 32.3 g/dl (32.0-36.5); MEAN CORPUSCULAR VOLUME 89.5 fl (80.0-96.0); PLATELET COUNT, AUTOMATED 188 10^3/uL (150-450); RED BLOOD COUNT 4.46 10^6/uL (4.30-6.10)
[2019-09-04] MEDS: APIXABAN 5 MG TAB (ELIQUIS) PO SCH (16:26)
--- NOTE | 2019-09-04 20:23 | IPNPDOC ---
Date Seen The patient was seen on 09/04/19. Progress Note HISTORY OF PRESENT ILLNESS: 64-year-old male with past medical history of atrial fibrillation, CHF, status post pacemaker/AICD placement, coronary artery disease, open heart surgery (mitral of repair/replacement), chronic kidney disease, diabetes mellitus, DVT/PE status post IVC filter was recently admitted at another facility for acute on chronic kidney disease and discharged earlier this week, now presents to [facility] with worsening lower extremity swelling and dyspnea on exertion. Patient reports that he underwent a VQ scan at the other facility about 5-6 days ago which was negative, reports worsening swelling in bilateral lower extremities with tenderness in the calves bilaterally, denies any short of breath at rest but unable to walk more than 5- 10 feet before developing significant dyspnea on exertion. Patient was noted to desat into the 80s when asked to sit up in the bed for examination, otherwise, satting over 95%. He reports taking Xarelto for atrial fibrillation up until February of this year, when he had his open heart surgery he was told there were going to do something where he would no longer need anticoagulation, questionable removal of atrial appendages. He also reports placement of an IVC filter 5 years ago when he was diagnosed with DVT/PE. Otherwise, he denies any chest pain, nausea, vomiting, abdominal pain or diarrhea at this time. 09/02/2019 Patient resting in chair without any complaints, denies short of breath, chest pain, nausea, vomiting, abdominal pain or diarrhea. Patient reports mild improvement in lower extremity pain. 09/03/2019 Patient comfortable in bed, reports mild epigastric pain with reflux, no other complaints at this time. He denies any short of breath, chest pain, nausea, vomiting or diarrhea. 09/04/2019 Patient comfortable in bed, without any complaints, worked with physical therapy, tolerating diet. 10 point review of system is negative except for above PHYSICAL EXAMINATION: VITAL SIGNS: Please see below. GENERAL: No distress, morbidly obese HEENT: Normocephalic, atraumatic, moist mucous membranes NECK: Supple CARDIOVASCULAR EXAMINATION: S1, S2, distant, no murmurs RESPIRATORY EXAMINATION: Clear to auscultation, diminished in the bases, no wheezing ABDOMINAL EXAMINATION: Soft, nontender, nondistended, positive bowel sounds EXTREMITIES: Bilateral lower extremity pitting edema SKIN: No rash NEUROLOGICAL EXAMINATION: Alert and oriented 3, no focal deficits PSYCHIATRIC EXAMINATION: Calm and cooperative LABORATORY DATA: See below. IMAGING: Lower extremity Doppler with bilateral lower extremity DVTs MICROBIOLOGY: Please see below. ASSESSMENT: 64-year-old male with extensive medical history who was recently hospitalized, presents with lower sugar swelling and shortness of breath, found to have bilateral lower extremity DVTs. PLAN: 1. Bilateral DVTs. has an IVC filter, placed 5 years ago, switched heparin drip to Eliquis 10 mg twice a day Vascular surgery consult appreciated, continue medical management for now. Hypercoagulable workup pending 2. Acute on chronic kidney disease. Baseline creatinine unknown, hold diuretics, IV fluids discontinued, renal ultrasound negative, renal function improving. 3. CHF. Status post pacemaker/AICD, TTE with reduced EF 30-35%, volume status appears close to patient's baseline. 4. Coronary artery disease. Stable, continue home meds. (Aspirin, statin, beta braden) 5. Diabetes mellitus. Sliding scale insulin with fingersticks before every meal and at bedtime 6. Atrial fibrillation. Reportedly had surgical intervention to prevent embolic phenomena (possible removal of atrial appendage), continue rate control with Coreg. DVT prophylaxis: On heparin drip. GI prophylaxis: Protonix VS, I&O, 24H, Fishbone Vital Signs/I&O Vital Signs Date Time Temp Pulse Resp B/P (MAP) Pulse Ox O2 Delivery O2 Flow Rate FiO2 09/04/19 16:00 97.5 60 18 134/73 (93) 99 Room Air I&O- Last 24 Hours up to 6 AM 09/04/19 06:00 Intake Total 3430 ml Output Total 2000 ml Balance 1430 ml Laboratory Data 24H LABS Laboratory Tests 2 09/04/19 04:39: Nucleated Red Blood Cells % (auto) 0.0 09/04/19 04:40: Activated Partial Thromboplast Time 104.0H, Anion Gap 10, Glomerular Filtration Rate 24.1L, Calcium Level 9.0, Phosphorus Level 4.0, Magnesium Level 2.1 09/04/19 11:44: Bedside Glucose (Misc Panel) 158H 09/04/19 17:10: Bedside Glucose (Misc Panel) 161H CBC/BMP Laboratory Tests 09/04/19 04:39 09/04/19 04:40 Microbiology Microbiology 09/02/19 Stool Occult Blood (CAPRICE) - Final, Complete 09/01/19 Blood Culture - Preliminary, Resulted No Growth after 72 hours. All specime... CHALO GARCIA MD Sep 04, 2019 20:23
[2019-09-05 04:00] VITALS: BP 150/81
[2019-09-05 05:45] LABS: HEMATOCRIT 42.7 % (42.0-52.0); HEMOGLOBIN 13.5 g/dl (13.5-17.5); MEAN CORPUSCULAR HEMOGLOBIN 28.7 pg (27.0-33.0); MEAN CORPUSCULAR HGB CONC 31.6 g/dl (32.0-36.5); MEAN CORPUSCULAR VOLUME 90.9 fl (80.0-96.0); PLATELET COUNT, AUTOMATED 210 10^3/uL (150-450); WHITE BLOOD COUNT 13.1 10^3/uL (4.0-10.0)
[2019-09-05 06:11] LABS: BILIRUBIN,TOTAL 0.9 MG/DL (0.2-1.0); CALCIUM LEVEL 9.1 MG/DL (8.8-10.2); CREATININE FOR GFR 2.45 MG/DL (0.70-1.30); GLOMERULAR FILTRATION RATE 28.5 (>49); MAGNESIUM LEVEL 2.3 MG/DL (1.8-2.4); PHOSPHORUS LEVEL 3.5 MG/DL (2.5-4.9); POTASSIUM SERUM 5.1 MEQ/L (3.5-5.1); TOTAL PROTEIN 7.2 GM/DL (6.4-8.2)
[2019-09-05 08:00] VITALS: BP 123/69
[2019-09-05] MEDS: PANTOPRAZOLE 40MG TAB (PROTONIX) PO SCH (08:10)
[2019-09-05] MEDS: ATORVASTATIN 10 MG TAB PO SCH (08:10)
[2019-09-05] MEDS: ASPIRIN 81 MG ENTERIC TAB PO SCH (08:10)
[2019-09-05 08:11] VITALS: BP 123/69
[2019-09-05] MEDS: ALLOPURINOL 100 MG TAB PO SCH (08:11)
[2019-09-05] MEDS: APIXABAN 5 MG TAB (ELIQUIS) PO SCH (08:11)
[2019-09-05] MEDS: CARVedilol 6.25 MG TAB PO SCH (08:11)
[2019-09-05] MEDS: HumaLOG INSULIN (NovoLOG) PER UNIT SC SCH ×2 (08:12→12:56)
[2019-09-05 11:43] LABS: DRVV SCREEN 56.3 SEC
[2019-09-05 11:44] LABS: PTT LUPUS TYPE ANTICOAG SCREEN 1.4 (0-1.2)
[2019-09-05 12:00] VITALS: BP 133/71
[2019-09-05 12:45] LABS: DRVV CONFIRM 45.6 SEC; LUPUS CONFIRM RATIO 1.2
[2019-09-05 12:53] LABS: NORMALIZED RATIO 1.17 (0.00-1.20)
[2019-09-05] MEDS ORDERED: ELIQ5TAB PO ×2 (13:30→13:32)
--- NOTE | 2019-09-05 16:37 | DS.PDOC ---
Discharge Summary General Date of Admission Sep 01, 2019 at 07:57 Date of Discharge 09/05/2019 Attending Physician: CHALO GARCIA MD Discharge Summary PROCEDURES PERFORMED DURING STAY: None. ADMITTING DIAGNOSES: 1. Bilateral DVT. DISCHARGE DIAGNOSES: 1. Bilateral DVT COMPLICATIONS/CHIEF COMPLAINT: AFIB. HISTORY OF PRESENT ILLNESS: 64-year-old male with past medical history of atrial fibrillation, CHF, DVT status post IVC filter, coronary artery disease, open heart surgery, diabetes mellitus, was admitted for bilateral lower extremity DVTs. He has been on anticoagulation previously, stopped in February 2019. He was recently admitted to an other hospital for a prolonged period of time due to kidney injury. He has extensive DVTs in both lower extremities, a value by rescue surgery, elected for medical management, initially treated with heparin drip, which was subsequently changed to Eliquis. He was also found to have acute on chronic kidney disease. Upon presentation, treated with IV fluids, renal function improving, IV fluids have been discontinued. Patient value of physical therapy, recommended rehabilitation placement, patient accepted for acute rehabilitation unit, will be transferred there after discharge today. HOSPITAL COURSE: As above. DISCHARGE MEDICATIONS: Please see below. ALLERGIES: Please see below. PHYSICAL EXAMINATION: VITAL SIGNS: Please see below. GENERAL: No distress, morbidly obese HEENT: Normocephalic, atraumatic, moist mucous membranes NECK: Supple CARDIOVASCULAR EXAMINATION: S1, S2, distant, no murmurs RESPIRATORY EXAMINATION: Clear to auscultation, diminished in the bases, no wheezing ABDOMINAL EXAMINATION: Soft, nontender, nondistended, positive bowel sounds EXTREMITIES: Bilateral lower extremity pitting edema SKIN: No rash NEUROLOGICAL EXAMINATION: Alert and oriented 3, no focal deficits PSYCHIATRIC EXAMINATION: Calm and cooperative LABORATORY DATA: Please see below. PROGNOSIS: Guarded ACTIVITY: As tolerated. DIET: Cardiac with consistent carbs DISCHARGE PLAN: Patient will be discharged to acute rehabilitation unit DISPOSITION: 62 D/T Rehab Facility. DISCHARGE INSTRUCTIONS: 1. As above. DISCHARGE CONDITION: Stable. TIME SPENT ON DISCHARGE: Greater than 34 minutes. Vital Signs/I&Os Vital Signs Date Time Temp Pulse Resp B/P (MAP) Pulse Ox O2 Delivery O2 Flow Rate FiO2 09/05/19 12:00 97.5 57 18 133/71 (91) 97 Room Air I&O- Last 24 Hours up to 6 AM 09/05/19 05:59 Intake Total 1040 ml Output Total 1450 ml Balance -410 ml Laboratory Data Labs 24H Laboratory Tests 2 09/04/19 17:10: Bedside Glucose (Misc Panel) 161H 09/04/19 21:35: Bedside Glucose (Misc Panel) 126H 09/05/19 05:12: Nucleated Red Blood Cells % (auto) 0.0, Activated Partial Thromboplast Time 30.6, Anion Gap 10, Glomerular Filtration Rate 28.5L, Calcium Level 9.1, Phosphorus Level 3.5, Magnesium Level 2.3, Total Bilirubin 0.9, Aspartate Amino Transf (AST/SGOT) 19, Alanine Aminotransferase (ALT/SGPT) 27, Alkaline Phosphatase 134H, Total Protein 7.2, Albumin 3.0L, Albumin/Globulin Ratio 0.71L 09/05/19 12:04: Bedside Glucose (Misc Panel) 166H CBC/BMP Laboratory Tests 09/05/19 05:12 FSBS Laboratory Tests Test 09/04/19 17:10 09/04/19 21:35 09/05/19 12:04 Range/Units Bedside Glucose (Misc Panel) 161 126 166 80-115 MG/DL Microbiology Microbiology 09/02/19 Stool Occult Blood (CAPRICE) - Final, Complete 09/01/19 Blood Culture - Preliminary, Resulted No Growth after 72 hours. All specime... Discharge Medications Scheduled Allopurinol (Allopurinol) 100 Mg Tablet, 100 MG PO DAILY, (Reported) Apixaban (Eliquis) 5 Mg Tablet, 10 MG PO BID 10 mg BID for 5 days followed by 5 mg BID. Aspirin (Aspirin EC) 81 Mg Tablet.dr, 81 MG PO DAILY, (Reported) Atorvastatin Calcium (Atorvastatin Calcium) 10 Mg Tablet, 10 MG PO daily , (Reported) Carvedilol (Carvedilol) 6.25 Mg Tablet, 6.25 MG PO BID, (Reported) Glyburide (Glyburide) 1.25 Mg Tablet, 1.25 MG PO DAILY, (Reported) Spironolactone (Spironolactone) 50 Mg Tablet, 50 MG PO BID, (Reported) PT STATES RECENT INCREASE IN DOSE Allergies Coded Allergies: No Known Drug Allergies (Verified Allergy, Unknown, 09/01/19) CHALO GARCIA MD Sep 05, 2019 16:37
[2019-09-07 00:06] LABS: BETA-2 GLYCOPROTEIN I ABY IGA <9 (0-25); BETA-2 GLYCOPROTEIN I ABY IGG <9 (0-20); BETA-2 GLYCOPROTEIN I ABY IGM <9 (0-32); PROTEIN C FUNCTIONAL ACTIVITY 161 % (73-180); PROTEIN C RESISTANCE ACTIVATED 3.6 ratio (2.2-3.5); PROTEIN S FUNCTIONAL ACTIVITY 90 % (63-140)
== END 2019-09-05 15:02 | DRG 300 ==
LOC: M ED 04:45 → M ED INP 07:57 → M PCU 10:27
PROVIDERS: ADMIT Internal Medicine; ATTEND Internal Medicine
DX: I82.4Y3 Acute embolism and thrombosis of unspecified deep veins of proximal lower extremity, bilateral (principal); I50.22 Chronic systolic (congestive) heart failure; N18.4 Chronic kidney disease, stage 4 (severe); I25.10 Atherosclerotic heart disease of native coronary artery without angina pectoris; I48.91 Unspecified atrial fibrillation; Z86.718 Personal history of other venous thrombosis and embolism; E11.9 Type 2 diabetes mellitus without complications; Z79.899 Other long term (current) drug therapy; Z79.82 Long term (current) use of aspirin; Z95.0 Presence of cardiac pacemaker; Z86.711 Personal history of pulmonary embolism; Z95.2 Presence of prosthetic heart valve

== ENCOUNTER 2019-09-05 13:21 | Inpatient (IN) | payer MEDICARE, MEDICAID ==
[~2019-09-05] VITALS: Ht 182.9 cm; Wt 136.8 kg
[~2019-09-05 13:21] MED LIST: ALLO100T PO; ASPI81TA33 PO; ATOR1TAB19 PO; CARV6.25 PO; FURO80TA2 PO; GLYB125TA PO; POTA1TAB14 PO; SPIR50TA4 PO
[2019-09-05] MEDS ORDERED: ELIQ5TAB PO ×2 (13:30→13:32)
[2019-09-05 14:30] VITALS: BP 138/75
[2019-09-05] MEDS ORDERED: DEXTROSE 50% 50 ML SYRINGE IV PRN (17:30)
[2019-09-05] MEDS ORDERED: GLUCOSE 4 GM CHEW TABLET PO PRN (17:30)
[2019-09-05] MEDS ORDERED: GLUCAGON FOR INJ 1 MG VIAL (J1610) SC PRN (17:30)
[2019-09-05] MEDS ORDERED: MOM 30ML SUSPENSION UDC PO PRN (17:30)
[2019-09-05] MEDS: HumaLOG INSULIN (NovoLOG) PER UNIT SC SCH ×2 (17:56→21:00)
[2019-09-05 20:00] VITALS: BP 131/79
[2019-09-05] MEDS: PANTOPRAZOLE 40MG TAB (PROTONIX) PO SCH (21:35)
[2019-09-05] MEDS: DOCUSATE SODIUM 100 MG CAP PO SCH (21:35)
[2019-09-05] MEDS: APIXABAN 5 MG TAB (ELIQUIS) PO SCH (21:35)
[2019-09-05] MEDS: SENNA 8.6 MG TAB (SENOKOT) PO SCH (21:35)
[2019-09-05] MEDS: CARVedilol 6.25 MG TAB PO SCH (21:36)
[2019-09-06 06:00] VITALS: BP 121/68
[2019-09-06 07:00] LABS: BASO # 0.1 10^3/uL (0.0-0.2); BASO % 0.5 % (0.0-1.0); EOS # 0.2 10^3/uL (0.0-0.5); EOS % 1.1 % (0.0-3.0); HEMATOCRIT 42.5 % (42.0-52.0); HEMOGLOBIN 13.5 g/dl (13.5-17.5); LYMPH # 1.2 10^3/uL (1.5-5.0); MEAN CORPUSCULAR HEMOGLOBIN 28.9 pg (27.0-33.0); MEAN CORPUSCULAR HGB CONC 31.8 g/dl (32.0-36.5); MONO # 1.3 10^3/uL (0.0-0.8); MONO % 9.8 % (0.0-5.0); NEUTROPHILS # 10.5 10^3/uL (1.5-8.5); NEUTROPHILS % 77.5 % (36.0-66.0); PLATELET COUNT, AUTOMATED 259 10^3/uL (150-450); RED BLOOD COUNT 4.67 10^6/uL (4.30-6.10); WHITE BLOOD COUNT 13.5 10^3/uL (4.0-10.0)
[2019-09-06 07:30] LABS: ALBUMIN 3.1 GM/DL (3.2-5.2); CALCIUM LEVEL 9.1 MG/DL (8.8-10.2); CREATININE FOR GFR 2.42 MG/DL (0.70-1.30); GLOMERULAR FILTRATION RATE 28.9 (>49); POTASSIUM SERUM 5.1 MEQ/L (3.5-5.1); TOTAL PROTEIN 7.5 GM/DL (6.4-8.2)
[2019-09-06] MEDS: PANTOPRAZOLE 40MG TAB (PROTONIX) PO SCH ×2 (08:19→21:16)
[2019-09-06] MEDS: ASPIRIN 81 MG CHEW TABLET PO SCH (08:20)
[2019-09-06] MEDS: glyBURIDE 2.5 MG TAB PO SCH (08:20)
[2019-09-06] MEDS: APIXABAN 5 MG TAB (ELIQUIS) PO SCH ×2 (08:21→21:16)
[2019-09-06] MEDS: ATORVASTATIN 10 MG TAB PO SCH (08:21)
[2019-09-06] MEDS: allopurinoL 100 MG TAB PO SCH (08:21)
[2019-09-06] MEDS: CARVedilol 6.25 MG TAB PO SCH ×2 (08:21→20:47)
[2019-09-06] MEDS: HumaLOG INSULIN (NovoLOG) PER UNIT SC SCH ×4 (08:22→20:47)
[2019-09-06] MEDS: DOCUSATE SODIUM 100 MG CAP PO SCH ×2 (08:22→21:16)
[2019-09-06] MEDS ORDERED: SPIRONOLACTONE 50 MG TAB PO SCH (09:00)
--- NOTE | 2019-09-06 12:32 | HPEPDOC ---
Head Start Coordinator Note DATE OF ADMISSION: 09-05-19 SOURCE OF ADMISSION INFORMATION: [facility] record and patient CHIEF COMPLAINT: Bilat LE DVTs with CKD in setting of CHF HISTORY OF PRESENT ILLNESS: 64M pmh CHF with AICD/PM, Afib s/p atrial appendage removal, DM, DVT and PE, CKD, CAD s/p open heart surgery for mitral valve replacement, s/p IVC filter 4/5 years ago with worsening lower extremity swelling with pain and difficulty walking admitted to [facility] for possible CHF exacerbation vs PE. He was found to have bilateral proximal DVTs and there was concern for PE, however given his renal function was not eligible for CTA. He had an ECHO performed on 09-01-19 which did not show Inferior vena cava increased pressures suggestive of large PE. It did however show, Mildly increased left ventricular wall thickness with mildly dilated left ventricle but a depressed global left ventricular systolic function. There was diffuse hypokinesis. The estimated left ventricular systolic ejection fraction is 30-35%. He was evaluated by vascular surgery who recommended switching back to oral anticoagulation from the heparin drip and obtaining a hypercoagulable profile. He was switched to Eliquis and his diuretic held for MARK on CKD. He was evaluated by therapy, noted to be well below his prior level of function and deemed medically appropriate for discharge to ARU. REVIEW OF SYSTEMS: The following is a completed review of systems and has been reviewed. Review of systems otherwise unremarkable. PAIN: Patient self reports bilateral calf pain EYES: No recent vision changes EARS, NOSE, & THROAT: No throat pain, or dysphagia, or rhinorrhea CARDIOVASCULAR: Denies chest pain or palpitations PULMONARY: Denies shortness of breath GASTROINTESTINAL: Denies constipation/diarrhea GENITOURINARY: denies dysuria MUSCULOSKELETAL: bilat LE swelling NEUROLOGICAL:no tremor or seizure activity HEMATOLOGICAL: denies easy bruising SKIN: RLE ecchymosis PSYCHIATRIC: Unremarkable All other review of systems found to be negative. PAST MEDICAL HISTORY: as per HPI PAST SURGICAL HISTORY: Mitral valve repair/replacement, cholecystectomy, possible atrial appendage removal ALLERGIES: Please see below. MEDICATIONS: Please see below. FAMILY HISTORY: Throat and lung cancer SOCIAL HISTORY: denies smoking, etoh, illicit drugs DIET: low sodium/consistent carb, fluid restricted PHYSICAL EXAMINATION: VITAL SIGNS: Please see below. GENERAL: Pleasant and cooperative. No acute distress. morbidly obese HEENT: PERRL. Extraocular movements intact. Clear conjunctiva CARDIOVASCULAR: Irregular rate and rhythm. No murmurs, rubs, or gallops LUNGS: Clear to auscultation bilaterally. No wheezes. No rhonchi ABDOMEN: Soft, nontender, nondistended. Positive bowel sounds. Normal active bowel sounds NEUROLOGICAL: Alert and oriented times three. Cranial nerves II through XII grossly intact. Sensation grossly intact EXTREMITIES: 5\5 strength bilateral upper extremities. 4\5 strength right lower extremity. 4/5 strength in left lower extremity. (+) calf edeme a L>R (+) Jonathan's bilat SKIN: right calf ecchymosis LABORATORY DATA: Please see below. IMAGING:Imaging documentation personally reviewed by record. FUNCTIONAL STATUS: Premorbid: Independent with all activities of daily life as well as mobility On Admission: Contact guard 30 feet ambulation and for assistance for bathing, upper body dressing, bed chair and wheelchair transfers, toilet transfers, ambulation. GOALS: Modified independent for community distances with RW, stair, functional transfers, toileting, bathing, assess for DME needs, medical optimization. ASSESSMENT:64-year-old M with past medical history of CKD4, mobid obesity, PE/DVTs who presents status post worsening LE edema thought to be due to DVTs and CHF. PLAN: 1. Rehab- PT/OT advance gait training and ADLs, incorporate lymphatic massage to help alleviate bilat LE swelling -monitor for shortness of breath/exertion, and modulate therapy for max RPE of 4 (moderate exertion) 2. Neuro: stable 3. Cardiac: hx Afib s/p atrial appendage removal- c/u carvedilol -chronic systolic and diastolic CHF with EF 30-35%, c/u spironolactone 50mg BID, low salt diet, fluid restriction, and daily weights- medicine consulted to assist in management -HLD- statin -CAD s/p AICD/PM with MRV c/u ASA 4. Resp: encourage incentive spirometry monitor for signs of infection 5. Vasc: hx of PE/DVT, now with bilat occlusive CFV DVTs, patient switched from heparin drip to Eliquis 10mg BID x7 days, then transition to 5mg BID -+IVC filter 6. Renal: CKD4, will consult nephrology to assist in fluid management in setting of CKD 7. Endo: pmh DM c/u glyburide and ISS, adjust prn 8. GI ppx: protonix BID 9. DVT: c/u eliquis 10. Pain: Tylenol prn 11. Dispo: TBD POST ADMISSION PHYSICIAN EVALUATION: Medical and functional status: Description of medical status, medical assessment: As above. Rehabilitation diagnosis and current and prior cold morbid medical conditions as above. Risk of complications and plans to mitigate them as above. Description of functional status current status is as above. Prior status as above. Status compared to preadmission: There are no clinically significant differences between the patient's current status and the information described on the pread mission screening document. Treatment plan anticipated: Treatment plan is as described above. Required disciplines including physical therapy, occupational therapy, others as noted above. Intensity of services: 3 hours a day, 6 days a week. Special considerations: There are no specific special or safety considerations that would likely preclude immediate implementation of an intensive rehabilitation program or subsequently influence the plan of care ATTESTATION: Considering all the information above, it is my best judgment that this patient requires intensive rehabilitation therapy as described above and an inpatient hospital environment due to the complexity of nursing, medical, and rehabilitation needs required by the patient. Furthermore, this patient can reasonably be expected to participate in an benefit from an inpatient rehabilitation stay with an interdisciplinary team approach to the delivery of rehabilitation care under the direction and supervision of rehabilitation physician. PROGNOSIS: Good ESTIMATED LENGTH OF STAY: 12-14 days. PROJECTED DISCHARGE DESTINATION: Home with family support and any durable medical equipment required to increase functional safety and mobility TIME SPENT COUNSELING AND COORDINATING INITIAL CARE: Greater than 70 minutes. Vital Signs Vital Sign - Last 24 Hours 09/05/19 09/05/19 09/05/19 09/06/19 14:30 20:00 21:36 06:00 Temp 97.1 97.1 97.7 Pulse 60 60 60 60 Resp 16 17 18 B/P (MAP) 138/75 (96) 131/79 (96) 131/79 121/68 (85) Pulse Ox 98 99 99 O2 Delivery Room Air Room Air Room Air 09/06/19 08:21 Pulse 60 B/P (MAP) 121/68 Laboratory Data CBC/BMP Laboratory Tests 09/06/19 06:46 Labs 24H Laboratory Tests 2 09/05/19 16:44: Bedside Glucose (Misc Panel) 138H 09/05/19 19:26: Bedside Glucose (Misc Panel) 126H 09/06/19 06:18: Bedside Glucose (Misc Panel) 130H 09/06/19 06:46: Immature Granulocyte % (Auto) 2.1, Neutrophils (%) (Auto) 77.5H, Lymphocytes (%) (Auto) 9.0L, Monocytes (%) (Auto) 9.8H, Eosinophils (%) (Auto) 1.1, Basophils (%) (Auto) 0.5, Neutrophils # (Auto) 10.5H, Lymphocytes # (Auto) 1.2L, Monocytes # (Auto) 1.3H, Eosinophils # (Auto) 0.2, Basophils # (Auto) 0.1, Nucleated Red Blood Cells % (auto) 0.0, Anion Gap 8, Glomerular Filtration Rate 28.9L, Calcium Level 9.1, Total Bilirubin 1.0, Aspartate Amino Transf (AST/SGOT) 23, Alanine Aminotransferase (ALT/SGPT) 31, Alkaline Phosphatase 144H, Total Protein 7.5, Albumin 3.1L, Albumin/Globulin Ratio 0.70L 09/06/19 11:30: Bedside Glucose (Misc Panel) 145H FSBS Laboratory Tests Test 09/05/19 16:44 09/05/19 19:26 09/06/19 06:18 09/06/19 11:30 Range/Units Bedside Glucose (Misc Panel) 138 126 130 145 80-115 MG/DL Home Medications Scheduled Allopurinol (Allopurinol) 100 Mg Tablet, 100 MG PO DAILY, (Reported) Apixaban (Eliquis) 5 Mg Tablet, 10 MG PO BID 10 mg BID for 5 days followed by 5 mg BID. Aspirin (Aspirin EC) 81 Mg Tablet.dr, 81 MG PO DAILY, (Reported) Atorvastatin Calcium (Atorvastatin Calcium) 10 Mg Tablet, 10 MG PO daily , (Reported) Carvedilol (Carvedilol) 6.25 Mg Tablet, 6.25 MG PO BID, (Reported) Glyburide (Glyburide) 1.25 Mg Tablet, 1.25 MG PO DAILY, (Reported) Spironolactone (Spironolactone) 50 Mg Tablet, 50 MG PO BID, (Reported) PT STATES RECENT INCREASE IN DOSE Allergies Coded Allergies: No Known Drug Allergies (Verified Allergy, Unknown, 09/01/19) A-FIB/CHADSVASC A-FIB History Current/History of A-Fib/PAF?: Yes Current PO Anticoag Therapy: Yes YESY JORGE MD Sep 06, 2019 12:32
--- NOTE | 2019-09-06 12:35 | IPNPDOC ---
PM&R Progress Note DATE OF SERVICE: Sep 06, 2019 Confidential Investigator Progress Note Subjective: Patient reporting he feels well today, slept ok, and is ready for therapy. He believes his leg swelling is a little better today. REVIEW OF SYSTEMS: The following is a completed review of systems and has been reviewed. Review of systems otherwise unremarkable. PAIN: Patient self reports bilateral calf pain EYES: No recent vision changes EARS, NOSE, & THROAT: No throat pain, or dysphagia, or rhinorrhea CARDIOVASCULAR: Denies chest pain or palpitations PULMONARY: Denies shortness of breath GASTROINTESTINAL: Denies constipation/diarrhea GENITOURINARY: denies dysuria MUSCULOSKELETAL: bilat LE swelling NEUROLOGICAL:no tremor or seizure activity HEMATOLOGICAL: denies easy bruising SKIN: RLE ecchymosis PSYCHIATRIC: Unremarkable All other review of systems found to be negative. PHYSICAL EXAMINATION: VITAL SIGNS: Please see below. GENERAL: Pleasant and cooperative. No acute distress. morbidly obese HEENT: PERRL. Extraocular movements intact. Clear conjunctiva CARDIOVASCULAR: Irregular rate and rhythm. No murmurs, rubs, or gallops LUNGS: Clear to auscultation bilaterally. No wheezes. No rhonchi ABDOMEN: Soft, nontender, nondistended. Positive bowel sounds. Normal active bowel sounds NEUROLOGICAL: Alert and oriented times three. Cranial nerves II through XII grossly intact. Sensation grossly intact EXTREMITIES: 5\5 strength bilateral upper extremities. 4\5 strength right lower extremity. 4/5 strength in left lower extremity. (+) calf edeme a L>R (+) Jonathan's bilat SKIN: right calf ecchymosis ASSESSMENT:64-year-old M with past medical history of CKD4, mobid obesity, PE/DVTs who presents status post worsening LE edema thought to be due to DVTs and CHF. PLAN: 1. Rehab- PT/OT advance gait training and ADLs, incorporate lymphatic massage to help alleviate bilat LE swelling -monitor for shortness of breath/exertion, and modulate therapy for max RPE of 4 (moderate exertion) 2. Neuro: stable 3. Cardiac: hx Afib s/p atrial appendage removal- c/u carvedilol -chronic systolic and diastolic CHF with EF 30-35%, c/u spironolactone 50mg BID, low salt diet, fluid restriction, and daily weights- medicine consulted to assist in management -HLD- statin -CAD s/p AICD/PM with MVR c/u ASA 4. Resp: encourage incentive spirometry monitor for signs of infection 5. Vasc: hx of PE/DVT, now with bilat occlusive CFV DVTs, patient switched from heparin drip to Eliquis 10mg BID x7 days, then transition to 5mg BID -+IVC filter 6. Renal: CKD4, consulted nephrology to assist in fluid management in setting of CKD -Hyponatremia, will monitor and consider increasing fluid restriction 7. Endo: pmh DM c/u glyburide and ISS, adjust prn 8. GI ppx: protonix BID 9. DVT: c/u eliquis 10. Pain: Tylenol prn 11. Dispo: TBD Allergies Coded Allergies: No Known Drug Allergies (Verified Allergy, Unknown, 09/01/19) Vital Signs Vital Signs Date Time Temp Pulse Resp B/P (MAP) Pulse Ox O2 Delivery O2 Flow Rate FiO2 09/06/19 08:21 60 121/68 09/06/19 06:00 97.7 18 99 Room Air Laboratory Data CBC/BMP Laboratory Tests 09/06/19 06:46 Labs 24H Laboratory Tests 2 09/05/19 16:44: Bedside Glucose (Misc Panel) 138H 09/05/19 19:26: Bedside Glucose (Misc Panel) 126H 09/06/19 06:18: Bedside Glucose (Misc Panel) 130H 09/06/19 06:46: Immature Granulocyte % (Auto) 2.1, Neutrophils (%) (Auto) 77.5H, Lymphocytes (%) (Auto) 9.0L, Monocytes (%) (Auto) 9.8H, Eosinophils (%) (Auto) 1.1, Basophils (%) (Auto) 0.5, Neutrophils # (Auto) 10.5H, Lymphocytes # (Auto) 1.2L, Monocytes # (Auto) 1.3H, Eosinophils # (Auto) 0.2, Basophils # (Auto) 0.1, Nucleated Red Blood Cells % (auto) 0.0, Anion Gap 8, Glomerular Filtration Rate 28.9L, Calcium Level 9.1, Total Bilirubin 1.0, Aspartate Amino Transf (AST/SGOT) 23, Alanine Aminotransferase (ALT/SGPT) 31, Alkaline Phosphatase 144H, Total Protein 7.5, Albumin 3.1L, Albumin/Globulin Ratio 0.70L 09/06/19 11:30: Bedside Glucose (Misc Panel) 145H Current Medications Current Medications Current Medications Medications (Trade) Dose Ordered Sig/Vinny Route PRN Reason Start Time Stop Time Status Last Admin Dose Admin Acetaminophen (Tylenol Tab) 650 mg Q4HP PRN PO fever/pain 09/05/19 17:30 Allopurinol (Zyloprim) 100 mg DAILY PO 09/06/19 09:00 09/06/19 08:21 Apixaban (Eliquis) 5 mg BID PO 09/11/19 21:00 Apixaban (Eliquis) 10 mg BID PO 09/05/19 21:00 09/11/19 09:01 09/06/19 08:21 Aspirin (Aspirin Chewable) 81 mg DAILY PO 09/06/19 09:00 09/06/19 08:20 Atorvastatin Calcium (Lipitor) 10 mg DAILY PO 09/06/19 09:00 09/06/19 08:21 Carvedilol (COReg) 6.25 mg BID PO 09/05/19 21:00 09/06/19 08:21 Dextrose (Dextrose 50%) 25 ml ASDIRECTED PRN IV SEE LABEL COMMENTS 09/05/19 17:30 Docusate Sodium (Colace) 100 mg BID PO 09/05/19 21:00 09/05/19 21:35 Glucagon (Glucagon) 1 mg ASDIRECTED PRN SC SEE LABEL COMMENTS 09/05/19 17:30 Glucose (Glucose) 16 GM ASDIRECTED PRN PO SEE LABEL COMMENTS 09/05/19 17:30 Glyburide (Diabeta, Micronase) 1.25 mg DAILY@0730 PO 09/06/19 07:30 09/06/19 08:20 Insulin Human Lispro (HumaLOG INSULIN) SEE PROTOCOL TABLE AC SC 09/05/19 17:30 09/06/19 08:22 Insulin Human Lispro (HumaLOG INSULIN) SEE PROTOCOL TABLE QHS SC 09/05/19 21:00 Magnesium Hydroxide (Milk Of Magnesia) 30 ml DAILYPRN PRN PO CONSTIPATION 09/05/19 17:30 Pantoprazole Sodium (Protonix) 40 mg BID PO 09/05/19 21:00 09/06/19 08:19 Senna (Senokot) 1 tab QHS PO 09/05/19 21:00 09/05/19 21:35 Spironolactone (Aldactone) 50 mg BID@,17 PO 09/06/19 09:00 09/06/19 11:22 DC 09/06/19 08:21 Spironolactone (Aldactone) 50 mg DAILY PO 09/07/19 09:00 YESY JORGE MD Sep 06, 2019 12:35
[2019-09-06] MEDS ORDERED: TORSEMIDE 20 MG TAB PO SCH (12:45)
--- NOTE | 2019-09-06 13:23 | CR ---
DATE OF CONSULTATION: 09/06/2019 REQUESTING PHYSICIAN: Dr. Estela Vickers CONSULTING PHYSICIAN: Dr. Head REASON FOR CONSULTATION: Management of chronic kidney disease and congestive heart failure. CHIEF COMPLAINT: The patient was admitted to rehabilitation after a recent diagnosis of bilateral deep vein thrombosis (DVT). HISTORY OF PRESENT ILLNESS: Danyel Peters is a 64-year-old male with past medical history of congestive heart failure with reduced ejection fraction, left ventricular (LV) ejection fraction was around 30-35% on the recent echocardiogram done this week. History of chronic kidney disease Stage IV. He follows up with acidity tester, Dr. Sheehan in [place]. He is a very poor historian. He does not know his baseline creatinine or baseline GFR, however, best creatinine during this hospitalization has been 2.4. He presented to the hospital on 09/01/2019 with worsening lower extremity edema. He was found to have bilateral deep vein thrombosis (DVT). He already has a history of IVC filter. He was initially started on heparin drip and later on he was discharged on Eliquis 5 mg by mouth twice a day and transferred to rehabilitation. The rehabilitation physician called nephrology on board because of history of chronic kidney disease Stage IV and systolic heart failure. I saw and evaluated the patient today morning at the bedside. He was sitting in the sofa. He denied any active complaints apart from bilateral lower extremity edema. PAST MEDICAL HISTORY: Past medical history of bilateral DVT, history of systolic congestive heart failure, LV ejection fraction of 30-35%, history of atrial fibrillation, diabetes mellitus type 2, coronary artery disease and chronic kidney disease Stage IV. PAST SURGICAL HISTORY: Recently had open heart surgery, possibly had mitral valve repair, and history of cholecystectomy in the past. ALLERGIES: NO KNOWN DRUG ALLERGIES. FAMILY HISTORY: No significant family history of end stage renal disease requiring hemodialysis. SOCIAL HISTORY: He denies any smoking, drug abuse or alcohol abuse. REVIEW OF SYSTEMS: Constitutional: He denies any fevers or chills. Eyes: He denies any blurry vision, double vision. ENT: He denies any dysphagia or odynophagia. Cardiovascular: He denies any chest pain. He does report lower extremity edema. Respiratory: He denies any shortness of breath or cough. GI: He denies any nausea, vomiting. Genitourinary: He denies any dysuria or hematuria. Musculoskeletal: He reports bilateral lower extremity edema. Skin: He denies any rashes or ulcers. PATTERNMAKER GRADER: He denies any strokes or seizures. Hematologic/Oncologic: He denies any easy bleeding or bruising. All other review of systems are negative. PHYSICAL EXAMINATION: General: The patient is awake, alert, oriented times three, morbidly obese, laying in bed. Vital Signs: Temperature is 97.7 degrees Fahrenheit, blood pressure 121/68, pulse is 60, respiratory rate of 18, saturating 99% on room air. Intake and output: Urine output recorded as 300 mL since overnight. Weight in the bed scale is 139 kg. Head and Neck Exam: Extraocular muscles intact. Pupils equally round and reactive to light. Mucous membranes are moist. Neck is supple. There is no jugular venous distention (JVD). Cardiovascular: S1 and S2, regular rate. 2+ edema of the bilateral lower extremities. Respiratory: Chest is clear to auscultation bilaterally. Bilateral equal air entry. No rales or rhonchi. Abdomen: Soft. Obese. Positive bowel sounds. Nontender. No organomegaly. Genitourinary: Bladder is not palpable. Musculoskeletal: He has 2+ edema of the bilateral lower extremities. PATTERNMAKER GRADER: No focal deficit. Power is 5/5 in all extremities. Skin: No rashes or ulcers. LAB REVIEW: CBC showed a WBC of 13.5, hemoglobin 13.5 and platelets 259. BMP showed sodium 133, potassium 5.1, chloride 103, bicarb 22, BUN 66, creatinine 2.4, calcium 9.1, albumin 3.1. IMAGING: Renal ultrasound was done on 09/02/2019 which showed echogenic left kidney, right kidney was normal in echogenicity. Bladder volume was 678 mL. CURRENT INPATIENT MEDICATIONS: The patient's medications were all reviewed by me. He is on Tylenol as needed, allopurinol 100 mg daily, Eliquis 10 mg by mouth twice a day initially and then later on switched to 5 mg by mouth twice a day. He is on aspirin 81 mg by mouth daily, Lipitor 10 mg by mouth daily, Coreg 6.25 mg by mouth twice a day, Colace 100 mg by mouth twice a day, Glyburide 1.25 mg by mouth daily, insulin Lispro sliding scale, Protonix 40 mg by mouth twice a day, senna one tablet at bedtime, and he was on Spironolactone 50 mg by mouth twice a day. I have decreased the dose to 50 mg by mouth daily. I have also started the patient on torsemide 20 mg by mouth daily. ASSESSMENT: 64-year-old male with chronic kidney disease Stage IV, coronary artery disease, chronic systolic congestive heart failure, and recent bilateral deep vein thrombosis. PLAN: 1. Chronic kidney disease Stage IV. Baseline creatinine is not known, however, best baseline creatinine in the hospital was 2.4. Currently, he is at his baseline. Okay o continue Spironolactone, however, I am changing the Spironolactone dose to 50 mg by mouth once a day only. Continue to monitor the renal function. 2. Chronic systolic congestive heart failure. Latest LV ejection fraction is around 30-35%. Continue Coreg at this time. Continue Spironolactone but with the lower dose of 50 mg daily. I have added torsemide 20 mg by mouth daily. Further dose adjustment will be done tomorrow morning according to volume status and patient's renal function. 3. Chronic gout secondary to chronic kidney disease. Continue current dose of allopurinol 100 mg by mouth daily. 4. Bilateral deep vein thrombosis. The patient is currently on Eliquis therapeutic dose. 5. Diabetes mellitus type 2. Okay to continue Glyburide. Continue insulin sliding scale. Avoid use of metformin in this patient. 6. Coronary artery disease. Continue current dose of Lipitor 10 mg daily and aspirin 81 mg daily and the patient is also on anticoagulation. 7. Hyponatremia. Most likely secondary to hypervolemia. As mentioned above, diuretics are being changed. Volume status improvement has improved sodium levels as well. Thank you for involving me in the care of this patient. I will be happy to follow the patient along with you tomorrow morning.
[2019-09-06 14:00] VITALS: BP 126/71
--- NOTE | 2019-09-06 15:32 | CR.PDOC ---
General Date of Consultation: Sep 06, 2019 Consultation CHIEF COMPLAINT: Admitted to acute rehabilitation unit for physical deconditioning HISTORY OF PRESENT ILLNESS: 64-year-old male with past medical history of atrial fibrillation, CHF, status post pacemaker/AICD placement, coronary artery disease, open heart surgery (mitral of repair/replacement), chronic kidney disease stage IV, diabetes mellitus, DVT/PE status post IVC filter was admitted to [facility] for bilateral lower extremity DVTs. He was treated with heparin drip followed by Eliquis, was evaluated by vascular surgery, no need for surgical intervention. Patient also presented with acute on chronic kidney disease, treated with IV fluids with significant improvement in function, IV fluids discontinued 24 hours prior to discharge, patient with good urine outp ut. Patient was evaluated by physical therapy, rehabilitation was recommended, transferred to Acute rehabilitation unit yesterday. Patient is currently comfortable, was able to participate with his re habilitation today without much difficulty, without any complaints at this time. He denies any shortness of breath, chest pain, nausea, vomiting, abdominal pain or diarrhea. 10 point review of system is negative except for above PAST MEDICAL HISTORY: 1. CHF. 2. Atrial fibrillation. 3. Diabetes mellitus. 4. Coronary artery disease. 5. DVT/PE. 6. Chronic kidney disease PAST SURGICAL HISTORY: 1. Open-heart surgery (mitral valve repair/replacement). 2. Cholecystectomy. SOCIAL HISTORY: Never smoker. Denies alcohol. Denies drug use FAMILY HISTORY: Parents with lung cancer and throat cancer ALLERGIES: Please see below. HOME MEDICATIONS: Please see below. PHYSICAL EXAMINATION: VITAL SIGNS: Please see below. GENERAL: No distress, morbidly obese HEENT: Normocephalic, atraumatic, moist mucous membranes NECK: Supple CARDIOVASCULAR EXAMINATION: S1, S2, distant, no murmurs RESPIRATORY EXAMINATION: Clear to auscultation, diminished in the bases, no wheezing ABDOMINAL EXAMINATION: Soft, nontender, nondistended, positive bowel sounds EXTREMITIES: Bilateral lower extremity pitting edema SKIN: No rash NEUROLOGICAL EXAMINATION: Alert and oriented 3, no focal deficits PSYCHIATRIC EXAMINATION: Calm and cooperative LABORATORY DATA: See below. MICROBIOLOGY: Please see below. ASSESSMENT: 64-year-old male with extensive medical history who was recently hospitalized for bilateral lower extremity DVTs, now admitted to acute rehabilitation unit. PLAN: 1. Bilateral DVTs. Status post IVC filter 5 years ago, continue Eliquis 10 MG twice a day for 5 more days, followed by 5 mg twice a day indefinitely. 2. CHF. Status post pacemaker/AICD, continue optimal medical management (beta braden, spironolactone, torsemide). 3. Coronary artery disease. Stable, continue home meds. (Aspirin, statin, beta braden) 4. Diabetes mellitus. Sliding scale insulin with fingersticks before every meal and at bedtime 5. Atrial fibrillation. Reportedly had surgical intervention to prevent embolic phenomena (possible removal of atrial appendage), continue rate control with Coreg and anticoa gulation with Eliquis. 6. Physical deconditioning. Management as per primary team DVT prophylaxis: On Eliquis GI prophylaxis: Protonix Vital Signs/I&O Vital Signs Date Time Temp Pulse Resp B/P (MAP) Pulse Ox O2 Delivery O2 Flow Rate FiO2 09/06/19 14:00 97.7 60 18 126/71 (89) 99 Room Air I&O- Last 24 Hours up to 6 AM 09/06/19 06:00 Intake Total 580 ml Output Total 750 ml Balance -170 ml Laboratory Data Labs 24H Laboratory Tests 2 09/05/19 16:44: Bedside Glucose (Misc Panel) 138H 09/05/19 19:26: Bedside Glucose (Misc Panel) 126H 09/06/19 06:18: Bedside Glucose (Misc Panel) 130H 09/06/19 06:46: Immature Granulocyte % (Auto) 2.1, Neutrophils (%) (Auto) 77.5H, Lymphocytes (%) (Auto) 9.0L, Monocytes (%) (Auto) 9.8H, Eosinophils (%) (Auto) 1.1, Basophils (%) (Auto) 0.5, Neutrophils # (Auto) 10.5H, Lymphocytes # (Auto) 1.2L, Monocytes # (Auto) 1.3H, Eosinophils # (Auto) 0.2, Basophils # (Auto) 0.1, Nucleated Red Blood Cells % (auto) 0.0, Anion Gap 8, Glomerular Filtration Rate 28.9L, Calcium Level 9.1, Total Bilirubin 1.0, Aspartate Amino Transf (AST/SGOT) 23, Alanine Aminotransferase (ALT/SGPT) 31, Alkaline Phosphatase 144H, Total Protein 7.5, Albumin 3.1L, Albumin/Globulin Ratio 0.70L 09/06/19 11:30: Bedside Glucose (Misc Panel) 145H CBC/BMP Laboratory Tests 09/06/19 06:46 Allergies Coded Allergies: No Known Drug Allergies (Verified Allergy, Unknown, 09/01/19) Home Medications Scheduled Allopurinol (Allopurinol) 100 Mg Tablet, 100 MG PO DAILY, (Reported) Apixaban (Eliquis) 5 Mg Tablet, 10 MG PO BID, #60 10 mg BID for 5 days followed by 5 mg BID. Aspirin (Aspirin EC) 81 Mg Tablet.dr, 81 MG PO DAILY, (Reported) Atorvastatin Calcium (Atorvastatin Calcium) 10 Mg Tablet, 10 MG PO daily , (Reported) Carvedilol (Carvedilol) 6.25 Mg Tablet, 6.25 MG PO BID, (Reported) Glyburide (Glyburide) 1.25 Mg Tablet, 1.25 MG PO DAILY, (Reported) Spironolactone (Spironolactone) 50 Mg Tablet, 50 MG PO BID, (Reported) PT STATES RECENT INCREASE IN DOSE CHALO GARCIA MD Sep 06, 2019 15:32
[2019-09-06 20:00] VITALS: BP 135/77
[2019-09-06] MEDS: SENNA 8.6 MG TAB (SENOKOT) PO SCH (21:16)
[2019-09-07 05:57] LABS: BASO # 0.1 10^3/uL (0.0-0.2); BASO % 0.4 % (0.0-1.0); EOS # 0.2 10^3/uL (0.0-0.5); EOS % 1.2 % (0.0-3.0); HEMATOCRIT 42.5 % (42.0-52.0); HEMOGLOBIN 13.4 g/dl (13.5-17.5); LYMPH # 1.6 10^3/uL (1.5-5.0); MEAN CORPUSCULAR HEMOGLOBIN 28.7 pg (27.0-33.0); MEAN CORPUSCULAR HGB CONC 31.5 g/dl (32.0-36.5); MONO % 8.3 % (0.0-5.0); NEUTROPHILS # 9.2 10^3/uL (1.5-8.5); NEUTROPHILS % 75.1 % (36.0-66.0); PLATELET COUNT, AUTOMATED 285 10^3/uL (150-450); RED BLOOD COUNT 4.67 10^6/uL (4.30-6.10); WHITE BLOOD COUNT 12.3 10^3/uL (4.0-10.0)
[2019-09-07 06:00] VITALS: BP 124/77
[2019-09-07 06:18] LABS: CALCIUM LEVEL 9.3 MG/DL (8.8-10.2); CREATININE FOR GFR 2.9 MG/DL (0.70-1.30); GLOMERULAR FILTRATION RATE 23.4 (>49); POTASSIUM SERUM 4.8 MEQ/L (3.5-5.1)
[2019-09-07] MEDS: HumaLOG INSULIN (NovoLOG) PER UNIT SC SCH ×4 (07:30→20:22)
[2019-09-07] MEDS: ATORVASTATIN 10 MG TAB PO SCH (08:59)
[2019-09-07] MEDS: PANTOPRAZOLE 40MG TAB (PROTONIX) PO SCH ×2 (08:59→21:34)
[2019-09-07] MEDS: ASPIRIN 81 MG CHEW TABLET PO SCH (08:59)
[2019-09-07] MEDS: allopurinoL 100 MG TAB PO SCH (08:59)
[2019-09-07] MEDS: DOCUSATE SODIUM 100 MG CAP PO SCH ×2 (08:59→21:34)
[2019-09-07] MEDS: glyBURIDE 2.5 MG TAB PO SCH (08:59)
[2019-09-07] MEDS: CARVedilol 6.25 MG TAB PO SCH ×2 (09:00→21:35)
[2019-09-07] MEDS: APIXABAN 5 MG TAB (ELIQUIS) PO SCH ×2 (09:00→21:34)
[2019-09-07] MEDS ORDERED: SPIRONOLACTONE 50 MG TAB PO SCH (09:00)
[2019-09-07 14:00] VITALS: BP 128/60
[2019-09-07 14:08] VITALS: BP 124/77
[2019-09-07 20:00] VITALS: BP 120/70
[2019-09-07] MEDS: SENNA 8.6 MG TAB (SENOKOT) PO SCH (21:34)
[2019-09-08 06:00] VITALS: BP 127/80
[2019-09-08] MEDS: HumaLOG INSULIN (NovoLOG) PER UNIT SC SCH ×4 (07:30→21:00)
[2019-09-08] MEDS: glyBURIDE 2.5 MG TAB PO SCH (07:30)
[2019-09-08] MEDS: DOCUSATE SODIUM 100 MG CAP PO SCH ×2 (08:26→21:28)
[2019-09-08] MEDS: ASPIRIN 81 MG CHEW TABLET PO SCH (08:26)
[2019-09-08] MEDS: PANTOPRAZOLE 40MG TAB (PROTONIX) PO SCH ×2 (08:27→21:28)
[2019-09-08] MEDS: ATORVASTATIN 10 MG TAB PO SCH (08:27)
[2019-09-08] MEDS: allopurinoL 100 MG TAB PO SCH (08:27)
[2019-09-08] MEDS: APIXABAN 5 MG TAB (ELIQUIS) PO SCH ×2 (08:27→21:29)
[2019-09-08] MEDS: CARVedilol 6.25 MG TAB PO SCH ×2 (08:27→21:29)
--- NOTE | 2019-09-08 08:57 | IPN ---
DATE: 09/07/2019 SUBJECTIVE: The patient was seen and examined today morning in the rehab unit. He was getting his physical therapy when I saw him. I got a call balance wheel screw hole driller from his nurse that his creatinine had bumped up from 2.4 to 2.9, so his diuretics were held today. The patient reports mild persistent lower extremity edema. He otherwise denies any chest pain or shortness of breath. OBJECTIVE: Vital signs: Temperature is 98.8 degrees Fahrenheit, blood pressure 124/77, pulse is 57, respiratory of 18, saturating 99% on room air. Intake and output: Urine output recorded is 1.1 liters yesterday, 500 mL so far today since overnight. Weight on the bed scale is 138 kg. PHYSICAL EXAMINATION: General: The patient is awake, alert, oriented times three. He is obese, sitting in the wheelchair, no apparent distress. Head and neck exam: Extraocular muscles intact. Pupils equally round and reactive to light. Mucous membranes are moist. Neck is supple. There is no jugular venous distention (JVD). Cardiovascular: S1, S2, regular rate, 1+ edema of the bilateral lower extremities. Respiratory: Chest is clear to auscultation bilaterally. Bilateral equal air entry. No rales or rhonchi. Abdomen: Soft, obese, positive bowel sounds. Nontender. No organomegaly. Musculoskeletal: 1+ edema of the bilateral lower extremities, otherwise normal range of movement. Central nervous system (PIPE THREADING MACHINE OPERATOR): No focal deficit. Power is 5/5 in bilateral upper extremities. LAB REVIEW: CBC showed a WBC of 12.3, hemoglobin is 13.4, platelets are 285. BMP showed sodium 134, potassium 4.8, chloride 102, bicarbonate 22, BUN 75, creatinine is 2.9 - it was 2.4 yesterday, calcium is 9.3. CURRENT INPATIENT MEDICATIONS: The patient's medications were all reviewed by myself. He was on spironolactone 50 mg daily and torsemide 20 mg daily. I have stopped these medications at this time because of bump in the creatinine. He continues to been on Eliquis. No other change in the medications today as compared with yesterday. ASSESSMENT/PLAN: 1. Chronic kidney disease stage IV. There is a bump in the patient's creatinine with a dose of diuretic. Diuretic is being held. Best baseline creatinine is 2.4 during this hospitalization. 2. Chronic systolic congestive heart failure. Low dose of diuretics were tried yesterday. His creatinine has bumped. Left ventricular (LV) ejection fraction is around 30-35% on the latest echo. Diuretics will be resumed once renal function comes back to his baseline. Okay to continue current dose of Coreg 6.25 mg by mouth twice a day. 3. Bilateral deep vein thrombosis (DVT). The patient is currently on Eliquis. Gill is adequate. If renal function deteriorates further, then his Eliquis dose might need to be decreased. 4. Chronic gout secondary to chronic kidney disease. Continue current dose of allopurinol 100 mg daily. 5. Hyponatremia. The patient's sodium level is slightly better today with the use of diuretics. However, because of a bump in the creatinine and elevated BUN, diuretics are being held now. 6. Atrial fibrillation. Continue Coreg and Eliquis. Rate is controlled at this time.
[2019-09-08 12:07] LABS: ALBUMIN 3.2 GM/DL (3.2-5.2); CALCIUM LEVEL 9.1 MG/DL (8.8-10.2); CREATININE FOR GFR 3.06 MG/DL (0.70-1.30); PHOSPHORUS LEVEL 3.5 MG/DL (2.5-4.9); POTASSIUM SERUM 4.9 MEQ/L (3.5-5.1)
--- NOTE | 2019-09-08 13:15 | IPN ---
DATE: 09/08/2019 SUBJECTIVE: The patient was seen and examined in the rehab unit today morning. He was getting his exercises. His diuretics were held yesterday because of increase in the creatinine levels. His blood pressures are stable. He does report mild persistent anemia. No labs are available today morning. OBJECTIVE Vital signs: Temperature is 97.9 degrees Fahrenheit, blood pressure 127/80, pulse is 60, respiratory rate of 18, saturating 99% on room air. Intake and output: Urine output recorded is 1350 mL yesterday, 775 mL so far today since overnight. Weight in the bed scale is 142.8 kg, which is slightly higher than yesterday. PHYSICAL EXAMINATION: General: The patient is awake, alert, oriented times three, sitting up, in no apparent distress. Head and neck exam: Extraocular muscles intact. Pupils equally round and reactive to light. Mucous membranes are moist. Neck is supple. There is no jugular venous distention (JVD). Cardiovascular: S1, S2, regular rate, 2+ edema of the bilateral lower extremities. Respiratory: Chest is clear to auscultation bilaterally. Bilateral equal air entry. No rales or rhonchi. Abdomen: Soft, obese, positive bowel sounds. Musculoskeletal: He has 2+ edema of the bilateral lower extremities. Central nervous system (ALTO SINGER): No focal deficit, power is 5/5 in all extremities. LAB REVIEW: There are no labs available from today. CURRENT INPATIENT MEDICATIONS: The patient's medications were all reviewed by me. Diuretics were stopped yesterday because of bump in the creatinine. ASSESSMENT/PLAN: 1. Acute kidney injury superimposed on chronic kidney disease stage IV. There was a bump in the creatinine yesterday. Diuretics were held. Repeat renal profile is not available. 2. Chronic systolic congestive heart failure. The patient could not tolerate the diuretics, combination of torsemide and spironolactone. If I restart the diuretic, it will be at a lower dose. Okay to continue current dose of carvedilol at this time. Baseline left ventricular ejection fraction is 30-35%. 3. Bilateral deep vein thrombosis (DVT). Patient is currently on Eliquis, and he is getting physical therapy. 4. Chronic gout. Continue current dose of allopurinol 100 mg daily. 5. Atrial fibrillation. Continue Coreg and Eliquis.
[2019-09-08 14:00] VITALS: BP 128/68
[2019-09-08 20:00] VITALS: BP 137/75
[2019-09-08] MEDS: SENNA 8.6 MG TAB (SENOKOT) PO SCH (21:00)
[2019-09-09 05:30] VITALS: BP 131/78
[2019-09-09] MEDS: HumaLOG INSULIN (NovoLOG) PER UNIT SC SCH ×4 (07:57→20:20)
[2019-09-09] MEDS: glyBURIDE 2.5 MG TAB PO SCH (07:58)
[2019-09-09] MEDS: PANTOPRAZOLE 40MG TAB (PROTONIX) PO SCH ×2 (09:19→20:30)
[2019-09-09] MEDS: ASPIRIN 81 MG CHEW TABLET PO SCH (09:19)
[2019-09-09] MEDS: APIXABAN 5 MG TAB (ELIQUIS) PO SCH ×2 (09:20→20:30)
[2019-09-09] MEDS: allopurinoL 100 MG TAB PO SCH (09:20)
[2019-09-09] MEDS: DOCUSATE SODIUM 100 MG CAP PO SCH ×2 (09:20→20:30)
[2019-09-09] MEDS: ATORVASTATIN 10 MG TAB PO SCH (09:21)
[2019-09-09] MEDS: CARVedilol 6.25 MG TAB PO SCH ×2 (09:21→20:30)
[2019-09-09] MEDS: TORSEMIDE 20 MG TAB PO SCH (12:18)
[2019-09-09] MEDS: SPIRONOLACTONE 25 MG TAB PO SCH (12:19)
[2019-09-09 13:16] LABS: CALCIUM LEVEL 9.1 MG/DL (8.8-10.2); CREATININE FOR GFR 2.62 MG/DL (0.70-1.30); GLOMERULAR FILTRATION RATE 26.4 (>49); PHOSPHORUS LEVEL 3.2 MG/DL (2.5-4.9); POTASSIUM SERUM 4.5 MEQ/L (3.5-5.1)
[2019-09-09 13:39] LABS: APPEARANCE, URINE CLEAR (CLEAR); BACTERIA, URINE AUTO NEGATIVE (NEGATIVE); BILIRUBIN, URINE AUTO NEGATIVE (NEGATIVE); BLOOD, URINE BLOOD NEGATIVE (NEGATIVE); COLOR, URINE YELLOW (YELLOW); GLUCOSE, URINE (UA) AUTO 1+ mg/dL (NEGATIVE); KETONE, URINE AUTO NEGATIVE (NEGATIVE); LEUKOCYTE ESTERASE, URINE AUTO NEGATIVE (NEGATIVE); MUCUS, URINE SMALL (NEGATIVE); NITRITE, URINE AUTO NEGATIVE (NEGATIVE); PROTEIN, URINE AUTO NEGATIVE (NEGATIVE); RBC, URINE AUTO 0 /HPF (0-3); SPECIFIC GRAVITY URINE AUTO 1.018 (1.002-1.035); SQUAMOUS EPITHELIAL CELL UR AU 0 /HPF (0-6); UROBILINOGEN, URINE AUTO 0.2 mg/dL (0.0-2.0); WBC, URINE AUTO 0 /HPF (0-3)
[2019-09-09 14:00] VITALS: BP 118/59
--- NOTE | 2019-09-09 14:14 | IPN ---
DATE: 09/09/2019 SUBJECTIVE: The patient was seen and examined the bedside today morning. He is afebrile, hemodynamically stable. He reports persistent lower extremity edema. He denies any nausea, vomiting. His labs from yesterday were reviewed. His creatinine was still rising and was at three yesterday diuretics are still on hold. OBJECTIVE Vital signs: Temperature is 98, blood pressure 126/73, pulse is 60, respiratory of 17, saturating 98% on room air. Intake and output urine output recorded is 1.3 liters yesterday. There is no urine output recorded since overnight. Weight in the bed scale is 139.7. Which is not reliable because there is almost 3 kg difference from difference from yesterday. PHYSICAL EXAMINATION: General: The patient is awake, alert, oriented times three sitting up on the sofa, no apparent distress. Head and neck exam extraocular muscles intact. Pupils equally round and reactive to light. Mucous membranes are moist. Neck is supple. There is no JVD. Cardiovascular, S1, S2 regular rate, 2+ edema and in the thighs and 3+ edema in the legs Respiratory: Chest is clear to auscultation bilaterally. Bilateral equal air entry. No rales or rhonchi. Abdomen: Soft, obese, positive bowel sounds. Nontender. No organomegaly. Musculoskeletal: No clubbing or cyanosis. Pulses are 2+. VACUUM FORMING MACHINE OPERATOR: No focal deficit power is 5/5 in all extremities. LAB REVIEW: CBC showed WBC 12.3, hemoglobin 13.4, platelets 285. BMP is still pending at this time. CURRENT INPATIENT MEDICATIONS: The patient's medications were all reviewed by me because of the persistent lower extremity edema. I have restarted the patient on spironolactone 25 mg daily and torsemide 20 mg by mouth daily. ASSESSMENT/PLAN: 1. Acute kidney injury superimposed on chronic kidney disease stage IV despite worsening creatinine levels because of worsening edema I have restarted the patient on low dose of diuretics. Repeat labs from today morning is pending. 2. Chronic systolic congestive heart failure. The patient has DVT the lower extremities as well and he has lower extremity edema. Continue the torsemide 20 mg and spironolactone 25 mg by mouth daily. Continue carvedilol. 3. Bilateral DVT continue current dose of Eliquis. 4. Anemia and chronic kidney disease. Hemoglobin is 13.4 which is optimal. No need of EMILIANO administration at this time.
[2019-09-09 19:15] VITALS: BP 116/68
[2019-09-09] MEDS: SENNA 8.6 MG TAB (SENOKOT) PO SCH (20:30)
[2019-09-10 05:15] VITALS: BP 121/72
[2019-09-10] MEDS: ASPIRIN 81 MG CHEW TABLET PO SCH (08:14)
[2019-09-10] MEDS: DOCUSATE SODIUM 100 MG CAP PO SCH ×2 (08:14→20:59)
[2019-09-10] MEDS: allopurinoL 100 MG TAB PO SCH (08:14)
[2019-09-10] MEDS: TORSEMIDE 20 MG TAB PO SCH ×2 (08:14→17:37)
[2019-09-10] MEDS: ATORVASTATIN 10 MG TAB PO SCH (08:14)
[2019-09-10] MEDS: CARVedilol 6.25 MG TAB PO SCH ×2 (08:15→21:00)
[2019-09-10] MEDS: APIXABAN 5 MG TAB (ELIQUIS) PO SCH ×2 (08:15→20:59)
[2019-09-10] MEDS: glyBURIDE 2.5 MG TAB PO SCH (08:15)
[2019-09-10] MEDS: PANTOPRAZOLE 40MG TAB (PROTONIX) PO SCH ×2 (08:15→20:59)
[2019-09-10] MEDS: SPIRONOLACTONE 25 MG TAB PO SCH (08:15)
[2019-09-10] MEDS: HumaLOG INSULIN (NovoLOG) PER UNIT SC SCH ×4 (08:16→21:00)
[2019-09-10 09:06] LABS: CALCIUM LEVEL 8.6 MG/DL (8.8-10.2); CREATININE FOR GFR 2.61 MG/DL (0.70-1.30); GLOMERULAR FILTRATION RATE 26.5 (>49); POTASSIUM SERUM 4.3 MEQ/L (3.5-5.1)
[2019-09-10 14:00] VITALS: BP 106/63
--- NOTE | 2019-09-10 18:55 | IPN ---
DATE: 09/10/2019 SUBJECTIVE: Danyel is seen and examined this morning at the bedside. He reports that physical therapy is going well. He continues to have dyspnea on exertion and he also reports ongoing lower extremity edema that comes up to the hip, thigh, and dependent area. He continues on supplemental oxygen and his diuretics were resumed yesterday. Vital signs: Temperature 97.9, pulse 59, respiratory rate 18, blood pressure 121/72, saturating 98% on room air. Intake yesterday shows 1 liter in and urine output of 1 liter, equivalent fluid balance. Weight in the bed scale today is slightly lower at 137.9 kg. General: The patient is seen sitting up in bed, head of the bed elevated. Awake, alert, oriented, comfortable, smiling, no acute distress. Extraocular muscles are intact. Tongue is moist. Neck is supple. Jugular veins are not elevated. Cardiac: S1, S2, regular rate. He has 2+ edema that comes all the way up to the hip. thigh, and the dependent area. Lungs are clear to auscultation bilaterally. No crackle or rales. Abdomen is soft and nontender. There are bowel sounds. Skin: Shows some scattered ecchymosis. Neurologic: No focal deficit, oriented times three. LABORATORY DATA: Sodium 137, potassium 4.3, bicarbonate 21, BUN 68, creatinine 2.6. INPATIENT MEDICATIONS: Reviewed by myself and no changes noted from prior. PROBLEMS: 1. CKD stage IV. Patient's baseline creatinine is not available to me, however I feel he is probably close to his baseline renal function given that his GFR is around 25 mL/minute. However his volume status is decompensated and I am increasing his diuretic. Although our medication list states that he only takes spironolactone at home, the patient tells me that he was also taking 80 mg of furosemide daily at home prior to admission, hence I am going to increase the dose of his torsemide. 2. Decompensated systolic congestive heart failure. The patient has an ejection fraction of 30%. Some of his peripheral edema is due to DVTs, however I do feel that he likely has some extra fluid on board as well and we will slightly increase his diuretics. Continue current dose of spironolactone and will increase the torsemide to 20 mg twice daily. 3. Hypervolemic hyponatremia. The patient's sodium level is improved today with increased diuretic. 4. Bilateral DVT. On Eliquis anticoagulation.
[2019-09-10 20:00] VITALS: BP 120/62
[2019-09-10] MEDS: SENNA 8.6 MG TAB (SENOKOT) PO SCH (20:59)
[2019-09-11] VITALS (7 sets, daily range): BP systolic 102–140; BP diastolic 57–64
[2019-09-11] MEDS: ACETAMINOPHEN TAB 650MG DOSE (2X325MG) PO PRN ×2 (03:36→07:36)
[2019-09-11] MEDS: HumaLOG INSULIN (NovoLOG) PER UNIT SC SCH ×4 (07:30→21:00)
[2019-09-11] MEDS: glyBURIDE 2.5 MG TAB PO SCH (07:30)
[2019-09-11] MEDS: ATORVASTATIN 10 MG TAB PO SCH (08:17)
[2019-09-11] MEDS: allopurinoL 100 MG TAB PO SCH (08:17)
[2019-09-11] MEDS: TORSEMIDE 20 MG TAB PO SCH ×2 (08:17→16:55)
[2019-09-11] MEDS: SPIRONOLACTONE 25 MG TAB PO SCH (08:17)
[2019-09-11] MEDS: DOCUSATE SODIUM 100 MG CAP PO SCH ×2 (08:18→22:29)
[2019-09-11] MEDS: ASPIRIN 81 MG CHEW TABLET PO SCH (08:18)
[2019-09-11] MEDS: CARVedilol 6.25 MG TAB PO SCH (08:18)
[2019-09-11] MEDS: APIXABAN 5 MG TAB (ELIQUIS) PO SCH ×2 (08:18→22:30)
[2019-09-11] MEDS: PANTOPRAZOLE 40MG TAB (PROTONIX) PO SCH ×2 (08:18→22:29)
[2019-09-11 11:50] LABS: BASO # 0.1 10^3/uL (0.0-0.2); BASO % 0.6 % (0.0-1.0); EOS # 0.1 10^3/uL (0.0-0.5); EOS % 0.8 % (0.0-3.0); HEMATOCRIT 41.2 % (42.0-52.0); HEMOGLOBIN 13.4 g/dl (13.5-17.5); LYMPH % 9.6 % (24.0-44.0); MEAN CORPUSCULAR HEMOGLOBIN 29.2 pg (27.0-33.0); MEAN CORPUSCULAR HGB CONC 32.5 g/dl (32.0-36.5); MEAN CORPUSCULAR VOLUME 89.8 fl (80.0-96.0); MONO % 9.1 % (0.0-5.0); NEUTROPHILS # 8.3 10^3/uL (1.5-8.5); NEUTROPHILS % 78.3 % (36.0-66.0); PLATELET COUNT, AUTOMATED 332 10^3/uL (150-450); RED BLOOD COUNT 4.59 10^6/uL (4.30-6.10); WHITE BLOOD COUNT 10.6 10^3/uL (4.0-10.0)
--- NOTE | 2019-09-11 11:54 | IPNPDOC ---
PM&R Progress Note DATE OF SERVICE: Sep 11, 2019 Machine Shop Specialist Progress Note Subjective: Patient reporting he feels a little light headed with standing that passed after a few [id number] in OT. He reports his ankles feel more sore today. REVIEW OF SYSTEMS: The following is a completed review of systems and has been reviewed. Review of systems otherwise unremarkable. PAIN: Patient self reports bilateral calf pain EYES: No recent vision changes EARS, NOSE, & THROAT: No throat pain, or dysphagia, or rhinorrhea CARDIOVASCULAR: Denies chest pain or palpitations PULMONARY: Denies shortness of breath GASTROINTESTINAL: Denies constipation/diarrhea GENITOURINARY: denies dysuria MUSCULOSKELETAL: bilat LE swelling NEUROLOGICAL:no tremor or seizure activity HEMATOLOGICAL: denies easy bruising SKIN: RLE ecchymosis PSYCHIATRIC: Unremarkable All other review of systems found to be negative. PHYSICAL EXAMINATION: VITAL SIGNS: Please see below. GENERAL: Pleasant and cooperative. No acute distress. morbidly obese HEENT: PERRL. Extraocular movements intact. Clear conjunctiva CARDIOVASCULAR: Irregular rate and rhythm. No murmurs, rubs, or gallops LUNGS: Clear to auscultation bilaterally. No wheezes. No rhonchi ABDOMEN: Soft, nontender, nondistended. Positive bowel sounds. Normal active bowel sounds NEUROLOGICAL: Alert and oriented times three. Cranial nerves II through XII grossly intact. Sensation grossly intact EXTREMITIES: 5\5 strength bilateral upper extremities. 4\5 strength right lower extremity. 4/5 strength in left lower extremity. (+) calf edema a L>R (+) Jonathan's bilat SKIN: right calf ecchymosis ASSESSMENT:64-year-old M with past medical history of CKD4, mobid obesity, PE/DVTs who presents status post worsening LE edema thought to be due to DVTs and CHF. PLAN: 1. Rehab- PT/OT advance gait training and ADLs, incorporate lymphatic massage to help alleviate bilat LE swelling, ambulating with RW -monitor for shortness of breath/exertion, and modulate therapy for max RPE of 4 (moderate exertion) 2. Neuro: stable 3. Cardiac: hx Afib s/p atrial appendage removal- c/u carvedilol -chronic systolic and diastolic CHF with EF 30-35%, c/u low salt diet, fluid restriction, and daily weights- renal managing diuretics, currently on Torsemide 20mg BId and spironolactone 25mg daily -medicine consulted to assist in management -HLD- statin -CAD s/p AICD/PM with MVR c/u ASA 4. Resp: encourage incentive spirometry monitor for signs of infection 5. Vasc: hx of PE/DVT, now with bilat occlusive CFV DVTs, patient switched from heparin drip to Eliquis 10mg BID x7 days, then transition to 5mg BID -+IVC filter 6. Renal: CKD4, nephrology assisting with fluid management in setting of CKD- recs greatly appreciated -Hyponatremia, improving on fluid restriction 7. Endo: pmh DM c/u glyburide and ISS, adjust prn 8. GI ppx: protonix BID 9. DVT: c/u eliquis 10. Pain: Tylenol prn 11. Dispo: TBD Allergies Coded Allergies: No Known Drug Allergies (Verified Allergy, Unknown, 09/01/19) Vital Signs Vital Signs Date Time Temp Pulse Resp B/P (MAP) Pulse Ox O2 Delivery O2 Flow Rate FiO2 09/11/19 08:18 60 140/61 09/11/19 06:00 98.6 18 98 Room Air Laboratory Data CBC/BMP Labs 24H Laboratory Tests 2 09/10/19 16:27: Bedside Glucose (Misc Panel) 111 09/10/19 19:15: Bedside Glucose (Misc Panel) 144H 09/11/19 05:45: Bedside Glucose (Misc Panel) 99 09/11/19 11:10: 09/11/19 11:15: Bedside Glucose (Misc Panel) 145H Current Medications Current Medications Current Medications Medications (Trade) Dose Ordered Sig/Vinny Route PRN Reason Start Time Stop Time Status Last Admin Dose Admin Acetaminophen (Tylenol Tab) 650 mg Q4HP PRN PO fever/pain 09/05/19 17:30 09/11/19 07:36 Allopurinol (Zyloprim) 100 mg DAILY PO 09/06/19 09:00 09/11/19 08:17 Apixaban (Eliquis) 5 mg BID PO 09/11/19 21:00 Apixaban (Eliquis) 10 mg BID PO 09/05/19 21:00 09/11/19 09:01 DC 09/11/19 08:18 Aspirin (Aspirin Chewable) 81 mg DAILY PO 09/06/19 09:00 09/11/19 08:18 Atorvastatin Calcium (Lipitor) 10 mg DAILY PO 09/06/19 09:00 09/11/19 08:17 Carvedilol (COReg) 6.25 mg BID PO 09/05/19 21:00 09/11/19 08:18 Dextrose (Dextrose 50%) 25 ml ASDIRECTED PRN IV SEE LABEL COMMENTS 09/05/19 17:30 Docusate Sodium (Colace) 100 mg BID PO 09/05/19 21:00 09/11/19 08:18 Glucagon (Glucagon) 1 mg ASDIRECTED PRN SC SEE LABEL COMMENTS 09/05/19 17:30 Glucose (Glucose) 16 GM ASDIRECTED PRN PO SEE LABEL COMMENTS 09/05/19 17:30 Glyburide (Diabeta, Micronase) 1.25 mg DAILY@0730 PO 09/06/19 07:30 09/10/19 08:15 Insulin Human Lispro (HumaLOG INSULIN) SEE PROTOCOL TABLE AC SC 09/05/19 17:30 09/10/19 17:36 Insulin Human Lispro (HumaLOG INSULIN) SEE PROTOCOL TABLE QHS SC 09/05/19 21:00 Magnesium Hydroxide (Milk Of Magnesia) 30 ml DAILYPRN PRN PO CONSTIPATION 09/05/19 17:30 Pantoprazole Sodium (Protonix) 40 mg BID PO 09/05/19 21:00 09/11/19 08:18 Senna (Senokot) 1 tab QHS PO 09/05/19 21:00 09/10/19 20:59 Spironolactone (Aldactone) 25 mg QAM PO 09/09/19 09:00 09/11/19 08:17 Spironolactone (Aldactone) 50 mg BID@09,17 PO 09/06/19 09:00 09/06/19 11:22 DC 09/06/19 08:21 Spironolactone (Aldactone) 50 mg DAILY PO 09/07/19 09:00 09/07/19 09:23 DC Torsemide (Demadex) 20 mg BID@0900,1700 PO 09/10/19 17:00 09/11/19 08:17 Torsemide (Demadex) 20 mg DAILY PO 09/06/19 12:45 09/07/19 09:23 DC 09/06/19 14:40 Torsemide (Demadex) 20 mg DAILY PO 09/09/19 09:00 09/10/19 11:42 DC 09/10/19 08:14 YESY JORGE MD Sep 11, 2019 11:54
--- NOTE | 2019-09-11 12:34 | IPN ---
DATE: 09/11/2019 The patient was seen, examined this morning at the bedside in he rehabilitation unit. Nursing staff reports that he was lightheaded with his physical therapy this morning and had positive orthostatic vitals. Patient's diuretic dose was increased yesterday and he had an improved urine output of 2.5 liters yesterday. His main complaint today is of pain in the right ankle and tightness in the lower extremities and he also notes dyspnea with exertion. Temperature 90.6, pulse 60, respiratory rate 18, blood pressure 140/61, saturating 98% on room air. Intake yesterday was 1 liter. Urine output yesterday was 2.5 liters. Net negative 1.5 liters. Weight in the bed scale today is not recorded. General: The patient is seen sitting out of bed to the chair, awake, alert, oriented, comfortable, smiling no acute distress. Extraocular muscles are intact. Tongue is moist. Neck is supple. Jugular veins were not elevated while he is sitting upright. Cardiac: S1, S2 regular rate. There is 3+ edema that comes all the way up to the hip, thigh and the dependent area. Lungs are clear to auscultation bilaterally. There is no crackle or rale. There is no tachypnea nor accessory muscle use. He is seen on room air. Abdomen is soft, obese and nontender. There are bowel sounds. Skin: Shows scattered ecchymosis. Extremities show significant pitting edema in the lower extremities and no edema in the upper extremities. Neurologic: He is oriented times three. No focal deficit. LABS: Today's chemistry is still pending. CBC shows white count of 10.6, hemoglobin 13.4, platelet 332. INPATIENT MEDICATIONS: I note his Eliquis is now 5 mg twice daily. I decreased his Carvedilol to 3.125 mg by mouth twice daily. Remainder of medications are unchanged from prior: PROBLEMS: 1. Chronic kidney disease (CKD) stage IV: The patient's exact baseline creatinine is not available to me, however, he is probably fairly close to baseline given that his current GFR is about 25 mL per minute. I will try to get records from [facility] to see what his actual baseline is. His volume status is decompensated and yesterday his diuretics were increased to torsemide 20 mg p.o. twice daily along with spironolactone once daily. He has net negative 1.5 liters. I am waiting for today's renal panel and if his renal function stays stable, I will continue to escalate his diuretics given his significant peripheral edema. 2. Decompensated systolic congestive heart failure, ejection fraction of 30%: Some of his peripheral edema is likely due to deep venous thromboses (DVTs), however, he needs to be diuresed as well. We will continue to escalate his diuretics as long as his renal function remained stable. I am waiting for today's renal panel result prior to increasing his diuretic. Continue with current fluid restriction. 3. Orthostatic hypotension: Nursing staff tells me the patient was lightheaded during physical therapy and he had about a 25-point drop in systolic blood pressure I am ordering orthostatic vitals every 8-hours to be done today and I have also decreased his dose of carvedilol down to 3.125 mg twice a day and I have made the holding parameters more generous. 4. History of gout: The patient complains of pain in his right ankle which is reminiscent of his prior gout flares we will check uric acid level and increase the allopurinol as needed.
[2019-09-11 12:47] LABS: CALCIUM LEVEL 8.8 MG/DL (8.8-10.2); CREATININE FOR GFR 3.04 MG/DL (0.70-1.30); GLOMERULAR FILTRATION RATE 22.2 (>49); MAGNESIUM LEVEL 1.8 MG/DL (1.8-2.4); POTASSIUM SERUM 4.3 MEQ/L (3.5-5.1); URIC ACID 8.8 MG/DL (3.5-7.2)
[2019-09-11] MEDS: SENNA 8.6 MG TAB (SENOKOT) PO SCH (22:29)
[2019-09-11] MEDS: CARVedilol 3.125 MG TAB PO SCH (22:31)
[2019-09-12 06:00] VITALS: BP 110/70
[2019-09-12 06:40] VITALS: BP 110/70
[2019-09-12 06:43] VITALS: BP 118/80
[2019-09-12 06:46] VITALS: BP 102/80
[2019-09-12 07:20] LABS: BILIRUBIN,TOTAL 0.7 MG/DL (0.2-1.0); CALCIUM LEVEL 8.7 MG/DL (8.8-10.2); CREATININE FOR GFR 2.77 MG/DL (0.70-1.30); GLOMERULAR FILTRATION RATE 24.7 (>49); POTASSIUM SERUM 3.8 MEQ/L (3.5-5.1); TOTAL PROTEIN 6.9 GM/DL (6.4-8.2)
[2019-09-12] MEDS: glyBURIDE 2.5 MG TAB PO SCH (07:30)
[2019-09-12] MEDS: HumaLOG INSULIN (NovoLOG) PER UNIT SC SCH ×4 (07:30→21:00)
[2019-09-12] MEDS: SPIRONOLACTONE 25 MG TAB PO SCH (08:00)
[2019-09-12] MEDS: APIXABAN 5 MG TAB (ELIQUIS) PO SCH ×2 (08:00→22:17)
[2019-09-12] MEDS: PANTOPRAZOLE 40MG TAB (PROTONIX) PO SCH ×2 (08:00→22:17)
[2019-09-12] MEDS: allopurinoL 100 MG TAB PO SCH (08:00)
[2019-09-12] MEDS: ASPIRIN 81 MG CHEW TABLET PO SCH (08:00)
[2019-09-12] MEDS: CARVedilol 3.125 MG TAB PO SCH ×2 (08:01→22:17)
[2019-09-12] MEDS: DOCUSATE SODIUM 100 MG CAP PO SCH ×2 (08:01→22:16)
[2019-09-12] MEDS: ATORVASTATIN 10 MG TAB PO SCH (08:02)
[2019-09-12] MEDS: TORSEMIDE 10 MG TABLET PO SCH (13:29)
--- NOTE | 2019-09-12 14:02 | IPN ---
DATE OF SERVICE: 09/12/2019 SUBJECTIVE: The patient is a 64-year-old male who was seen today sitting in his bedside chair in the acute rehabilitation unit. The patient says that he feels much better today and he has been doing well with physical therapy. The patient was complaining of right ankle pain yesterday, however, he says this is better today. The patient is otherwise doing well and he was eating breakfast earlier this morning and did not have any complaints. OBJECTIVE: Vitals: Temperature 98.1, pulse 59, respiratory rate 18, blood pressure 118/80, pulse oximetry 96% on room air. General: The patient is an alert and oriented male patient who is sitting in the bedside chair when we walked in. The patient did not appear to be in any acute distress. HEENT: Normocephalic, atraumatic. Anicteric sclerae. Moist mucous membranes. Cardiovascular: Regular rate and rhythm. Normal S1 and normal S2. Lungs: Clear to auscultation bilaterally. Abdomen: Soft. Obese. Nontender. Skin: Shows scattered ecchymoses. Extremities: There is 3+ pitting edema in the lower extremities bilaterally up to the level of the thigh. LABORATORIES: White blood cell 10.6, hemoglobin 13.4, hematocrit 41.2, platelet count 332. Sodium 136, potassium 3.8, chloride 104, carbon dioxide 24, BUN 74, creatinine 2.77, glucose 104, calcium 8.7, albumin 3.0. INPATIENT MEDICATIONS: The patient's carvedilol was decreased to 3.125 mg twice daily. The patient's torsemide has been changed to 30 mg daily with first dose given today. ASSESSMENT AND PLAN: 1. Chronic kidney disease stage 4. The patient's instantizer operator at [facility], Dr. Sheehan, was contacted and previous labs were able to be obtained. The patient's creatinine baseline seems to be around 3.0, which his current creatinine is around his baseline at this time. We will restart his torsemide at 30 mg daily with his first dose to be given today. The patient is also on spironolactone 25 mg daily. We will continue to monitor the patient's renal function as well as the patient's edema. Hopefully, as we are able to get more fluid off the patient's legs we will also be able to help with the patient's physical therapy. 2. Decompensated systolic congestive heart failure. Ejection fraction is 30%. Some of the patient's peripheral edema is likely due to the patient's deep vein thromboses, however, he also has quite a bit of extra fluid in his legs. Now that we know that his renal function is at his baseline, we were able to escalate his diuretic therapy as long as his renal function remains stable and we will continue with the current fluid restriction. 3. Orthostatic hypotension. The patient's carvedilol has been decreased to 3.125 mg twice a day and the patient says he is feeling much better today. The patient's vital signs were stable yesterday. 4. History of gout. The patient's uric acid level was elevated, however, he says he is feeling better today. We will continue to monitor.
--- NOTE | 2019-09-12 18:37 | IPNPDOC ---
PM&R Progress Note DATE OF SERVICE: Sep 12, 2019 [employer] Therapist Progress Note Subjective: Patient reporting he feels no longer light-headed and more energized in therapy. He reports his ankles feel sore and is wondering is he can wear compression stocking. REVIEW OF SYSTEMS: The following is a completed review of systems and has been reviewed. Review of systems otherwise unremarkable. PAIN: Patient self reports bilateral calf pain EYES: No recent vision changes EARS, NOSE, & THROAT: No throat pain, or dysphagia, or rhinorrhea CARDIOVASCULAR: Denies chest pain or palpitations PULMONARY: Denies shortness of breath GASTROINTESTINAL: Denies constipation/diarrhea GENITOURINARY: denies dysuria MUSCULOSKELETAL: bilat LE swelling, +ankle pain NEUROLOGICAL:no tremor or seizure activity HEMATOLOGICAL: denies easy bruising SKIN: RLE ecchymosis PSYCHIATRIC: Unremarkable All other review of systems found to be negative. PHYSICAL EXAMINATION: VITAL SIGNS: Please see below. GENERAL: Pleasant and cooperative. No acute distress. morbidly obese HEENT: PERRL. Extraocular movements intact. Clear conjunctiva CARDIOVASCULAR: Irregular rate and rhythm. No murmurs, rubs, or gallops LUNGS: Clear to auscultation bilaterally. No wheezes. No rhonchi ABDOMEN: Soft, nontender, nondistended. Positive bowel sounds. Normal active bowel sounds NEUROLOGICAL: Alert and oriented times three. Cranial nerves II through XII grossly intact. Sensation grossly intact EXTREMITIES: 5\5 strength bilateral upper extremities. 4\5 strength right lower extremity. 4/5 strength in left lower extremity. (+) calf edema a L>R (+) Jonathan's bilat (+) mild TTP bilat ankles, no loacal swelling, however generalized edema SKIN: right calf ecchymosis ASSESSMENT:64-year-old M with past medical history of CKD4, mobid obesity, PE/DVTs who presents status post worsening LE edema thought to be due to DVTs and CHF. PLAN: 1. Rehab- PT/OT advance gait training and ADLs, incorporate lymphatic massage to help alleviate bilat LE swelling, ambulating with RW -monitor for shortness of breath/exertion, and modulate therapy for max RPE of 4 (moderate exertion) 2. Neuro: stable 3. Cardiac: hx Afib s/p atrial appendage removal- c/u carvedilol -chronic systolic and diastolic CHF with EF 30-35%, c/u low salt diet, fluid restriction, and daily weights- renal managing diuretics, changed to Torsemide 30mg dily, c/u spironolactone 25mg daily -medicine consulted to assist in management -HLD- statin -CAD s/p AICD/PM with MVR c/u ASA 4. Resp: encourage incentive spirometry monitor for signs of infection 5. Vasc: hx of PE/DVT, now with bilat occlusive CFV DVTs, patient switched from heparin drip to Eliquis 10mg BID x7 days, then transition to 5mg BID -+IVC filter 6. Renal: CKD4, nephrology assisting with fluid management in setting of CKD- recs greatly appreciated -Hyponatremia, improving on fluid restriction 7. Endo: pmh DM c/u glyburide and ISS, adjust prn 8. GI ppx: protonix BID 9. DVT: c/u eliquis 10. Pain: Tylenol prn and menthol salicylate to bilat ankles 11. Dispo: TBD Allergies Coded Allergies: No Known Drug Allergies (Verified Allergy, Unknown, 09/01/19) Vital Signs Vital Signs Date Time Temp Pulse Resp B/P (MAP) Pulse Ox O2 Delivery O2 Flow Rate FiO2 09/12/19 06:46 59 102/80 (87) 09/12/19 06:00 98.1 18 96 Room Air Laboratory Data CBC/BMP Laboratory Tests 09/12/19 06:18 Labs 24H Laboratory Tests 2 09/11/19 22:13: Bedside Glucose (Misc Panel) 104 09/12/19 06:18: Anion Gap 8, Glomerular Filtration Rate 24.7L, Calcium Level 8.7L, Total Bilirubin 0.7, Aspartate Amino Transf (AST/SGOT) 19, Alanine Aminotransferase (ALT/SGPT) 32, Alkaline Phosphatase 143H, Total Protein 6.9, Albumin 3.0L, Albumin/Globulin Ratio 0.77L 09/12/19 06:34: Bedside Glucose (Misc Panel) 100 09/12/19 11:34: Bedside Glucose (Misc Panel) 146H 09/12/19 16:42: Bedside Glucose (Misc Panel) 134H Current Medications Current Medications Current Medications Medications (Trade) Dose Ordered Sig/Vinny Route PRN Reason Start Time Stop Time Status Last Admin Dose Admin Acetaminophen (Tylenol Tab) 650 mg Q4HP PRN PO fever/pain 09/05/19 17:30 09/11/19 07:36 Allopurinol (Zyloprim) 100 mg DAILY PO 09/06/19 09:00 09/12/19 08:00 Apixaban (Eliquis) 5 mg BID PO 09/11/19 21:00 09/12/19 08:00 Apixaban (Eliquis) 10 mg BID PO 09/05/19 21:00 09/11/19 09:01 DC 09/11/19 08:18 Aspirin (Aspirin Chewable) 81 mg DAILY PO 09/06/19 09:00 09/12/19 08:00 Atorvastatin Calcium (Lipitor) 10 mg DAILY PO 09/06/19 09:00 09/12/19 08:02 Carvedilol (COReg) 3.125 mg BID PO 09/11/19 21:00 Carvedilol (COReg) 6.25 mg BID PO 09/05/19 21:00 09/11/19 12:06 DC 09/11/19 08:18 Dextrose (Dextrose 50%) 25 ml ASDIRECTED PRN IV SEE LABEL COMMENTS 09/05/19 17:30 Docusate Sodium (Colace) 100 mg BID PO 09/05/19 21:00 09/12/19 08:01 Glucagon (Glucagon) 1 mg ASDIRECTED PRN SC SEE LABEL COMMENTS 09/05/19 17:30 Glucose (Glucose) 16 GM ASDIRECTED PRN PO SEE LABEL COMMENTS 09/05/19 17:30 Glyburide (Diabeta, Micronase) 1.25 mg DAILY@0730 PO 09/06/19 07:30 09/10/19 08:15 Insulin Human Lispro (HumaLOG INSULIN) SEE PROTOCOL TABLE AC SC 09/05/19 17:30 09/12/19 17:32 Insulin Human Lispro (HumaLOG INSULIN) SEE PROTOCOL TABLE QHS SC 09/05/19 21:00 Magnesium Hydroxide (Milk Of Magnesia) 30 ml DAILYPRN PRN PO CONSTIPATION 09/05/19 17:30 Pantoprazole Sodium (Protonix) 40 mg BID PO 09/05/19 21:00 09/12/19 08:00 Senna (Senokot) 1 tab QHS PO 09/05/19 21:00 09/11/19 22:29 Spironolactone (Aldactone) 25 mg QAM PO 09/09/19 09:00 09/12/19 08:00 Spironolactone (Aldactone) 50 mg BID@,17 PO 09/06/19 09:00 09/06/19 11:22 DC 09/06/19 08:21 Spironolactone (Aldactone) 50 mg DAILY PO 09/07/19 09:00 09/07/19 09:23 DC Torsemide (Demadex) 20 mg BID@0900,1700 PO 09/10/19 17:00 09/11/19 19:20 DC 09/11/19 16:55 Torsemide (Demadex) 20 mg DAILY PO 09/06/19 12:45 09/07/19 09:23 DC 09/06/19 14:40 Torsemide (Demadex) 20 mg DAILY PO 09/09/19 09:00 09/10/19 11:42 DC 09/10/19 08:14 Torsemide (Demadex) 20 mg DAILY PO 09/13/19 09:00 09/12/19 13:00 DC Torsemide (Demadex) 30 mg DAILY PO 09/12/19 13:00 09/12/19 13:29 YESY JORGE MD Sep 12, 2019 18:37
[2019-09-12 20:00] VITALS: BP 121/62
[2019-09-12] MEDS: ANALGESIC BALM CRM 120 GM TOP SCH (21:00)
[2019-09-12] MEDS: SENNA 8.6 MG TAB (SENOKOT) PO SCH (22:17)
[2019-09-13 05:59] VITALS: BP_SYST 109; BP_SYST 123; BP_SYST 128; BP_DIAS 63; BP_DIAS 69; BP_DIAS 84
[2019-09-13 08:14] LABS: ALBUMIN 3.1 GM/DL (3.2-5.2); BILIRUBIN,TOTAL 1.1 MG/DL (0.2-1.0); CREATININE FOR GFR 2.9 MG/DL (0.70-1.30); GLOMERULAR FILTRATION RATE 23.4 (>49); POTASSIUM SERUM 3.6 MEQ/L (3.5-5.1); TOTAL PROTEIN 7.4 GM/DL (6.4-8.2)
[2019-09-13] MEDS ORDERED: TORSEMIDE 20 MG TAB PO SCH (09:00)
[2019-09-13] MEDS: HumaLOG INSULIN (NovoLOG) PER UNIT SC SCH ×4 (09:12→21:00)
[2019-09-13] MEDS: APIXABAN 5 MG TAB (ELIQUIS) PO SCH ×2 (09:12→21:14)
[2019-09-13] MEDS: TORSEMIDE 10 MG TABLET PO SCH (09:12)
[2019-09-13] MEDS: allopurinoL 100 MG TAB PO SCH (09:13)
[2019-09-13] MEDS: DOCUSATE SODIUM 100 MG CAP PO SCH ×2 (09:13→21:13)
[2019-09-13] MEDS: ASPIRIN 81 MG CHEW TABLET PO SCH (09:13)
[2019-09-13] MEDS: PANTOPRAZOLE 40MG TAB (PROTONIX) PO SCH ×2 (09:13→21:13)
[2019-09-13] MEDS: ATORVASTATIN 10 MG TAB PO SCH (09:13)
[2019-09-13] MEDS: SPIRONOLACTONE 25 MG TAB PO SCH (09:14)
[2019-09-13] MEDS: CARVedilol 3.125 MG TAB PO SCH ×2 (09:14→21:00)
[2019-09-13] MEDS: glyBURIDE 2.5 MG TAB PO SCH (09:14)
[2019-09-13] MEDS: ANALGESIC BALM CRM 120 GM TOP SCH ×3 (09:15→21:15)
[2019-09-13] MEDS: POTASSIUM CHLORIDE 10 MEQ SR TABLET PO SCH (12:25)
[2019-09-13] MEDS: ACETAMINOPHEN TAB 650MG DOSE (2X325MG) PO PRN (13:11)
[2019-09-13 14:00] VITALS: BP 96/65
--- NOTE | 2019-09-13 16:53 | IPNPDOC ---
Subjective Date Seen The patient was seen on 09/13/19. Subjective Chief Complaint/HPI The patient is a 64-year-old male who was seen this morning following admission to acute rehabilitation unit. Patient was on his way to the gym with PT, and using a walker. Patient stated he is doing much better today than yesterday. He denied any pain today. Patient reported he will be ready for discharge soon. Per nursing staff: swelling in bilateral ankles and legs has improved since his diuretics were resumed. General: Reports: Normal Appetite; Denies: Chills, Night Sweats Constitutional: Denies: Fever, Night Sweats Eyes: Denies: Vision change ENT: Denies: Head Aches, Dysphagia Pulmonary: Denies: Dyspnea, Cough Cardiovascular: Denies: Chest Pain, Palpitations, Orthopnea, Paroxysmal Noc. Dyspnea, Edema, Lt Headedness, Other Symptoms Gastrointestinal: Denies: Abdominal Pain, Constipation Musculoskeletal: Denies: Neck Pain, Back Pain, Shoulder Pain, Arm Pain, Hand Pain, Leg Pain, Foot Pain, Joint Pain, Muscle Pain, Spasms, Other Symptoms Psych: Denies: Anxiety, Depression Objective Physical Examination General Exam: Positive: Alert, Cooperative, No Acute Distress Eye Exam: Negative: Conjunctiva & lids normal ENT Exam: Negative: Atraumatic, Mucous membr. moist/pink Chest Exam: Positive: Clear to auscultation, Normal air movement, Rales, Rhonchi, Wheezing, Diminished, Other Heart Exam: Positive: Rate Normal Extremity Exam: Positive: Edema (2+ edema b/l lower extremities ) Neuro Exam: Positive: Other (ambulates with assistance x1 and with walker ) Psych Exam: Positive: Mental status NL Assessment /Plan Problems (1) Shortness of breath Status: Acute Response to Treatment: Improving Plan/VTE VTE Prophylaxis Ordered?: Yes (Patient currently takes Eliquis 5mg twice per day) Plan Patient reported he has improved and is looking forward to going home when he is eventually discharged. Patient will continue to be managed per Acute Rehab and followed by Hospitalist. VS, I&O, 24H, Fishbone Vital Signs/I&O Vital Signs Date Time Temp Pulse Resp B/P (MAP) Pulse Ox O2 Delivery O2 Flow Rate FiO2 09/13/19 09:14 60 129/66 09/12/19 20:00 97.6 18 99 Room Air I&O- Last 24 Hours up to 6 AM 09/13/19 06:00 Intake Total 890 ml Output Total 2300 ml Balance -1410 ml Laboratory Data 24H LABS Laboratory Tests 2 09/12/19 16:42: Bedside Glucose (Misc Panel) 134H 09/12/19 20:33: Bedside Glucose (Misc Panel) 146H 09/13/19 05:41: Bedside Glucose (Misc Panel) 111 09/13/19 07:04: Anion Gap 11, Glomerular Filtration Rate 23.4L, Calcium Level 9.0, Total Bilirubin 1.1#H, Aspartate Amino Transf (AST/SGOT) 21, Alanine Aminotransferase (ALT/SGPT) 29, Alkaline Phosphatase 152H, Total Protein 7.4, Albumin 3.1L, Albumin/Globulin Ratio 0.72L 09/13/19 12:06: Bedside Glucose (Misc Panel) 79L CBC/BMP Laboratory Tests 09/13/19 07:04 YONI SCHROEDER PA-C Sep 13, 2019 14:07
--- NOTE | 2019-09-13 18:43 | IPNPDOC ---
PM&R Progress Note DATE OF SERVICE: Sep 13, 2019 [employer] Progress Note Subjective: Patient reporting his ankles are hurting more today with weight bearing and he would like to try oral steroid for what he thinks is a recurrent gout flare. REVIEW OF SYSTEMS: The following is a completed review of systems and has been reviewed. Review of systems otherwise unremarkable. PAIN: Patient self reports bilateral calf pain EYES: No recent vision changes EARS, NOSE, & THROAT: No throat pain, or dysphagia, or rhinorrhea CARDIOVASCULAR: Denies chest pain or palpitations PULMONARY: Denies shortness of breath GASTROINTESTINAL: Denies constipation/diarrhea GENITOURINARY: denies dysuria MUSCULOSKELETAL: bilat LE swelling, +ankle pain NEUROLOGICAL:no tremor or seizure activity HEMATOLOGICAL: denies easy bruising SKIN: RLE ecchymosis PSYCHIATRIC: Unremarkable All other review of systems found to be negative. PHYSICAL EXAMINATION: VITAL SIGNS: Please see below. GENERAL: Pleasant and cooperative. No acute distress. morbidly obese HEENT: PERRL. Extraocular movements intact. Clear conjunctiva CARDIOVASCULAR: Irregular rate and rhythm. No murmurs, rubs, or gallops LUNGS: Clear to auscultation bilaterally. No wheezes. No rhonchi ABDOMEN: Soft, nontender, nondistended. Positive bowel sounds. Normal active bowel sounds NEUROLOGICAL: Alert and oriented times three. Cranial nerves II through XII grossly intact. Sensation grossly intact EXTREMITIES: 5\5 strength bilateral upper extremities. 4\5 strength right lower extremity. 4/5 strength in left lower extremity. (+) calf edema a L>R (+) Jonathan's bilat (+) mild TTP bilat ankles, no local swelling, however generalized edema SKIN: right calf ecchymosis ASSESSMENT:64-year-old M with past medical history of CKD4, mobid obesity, PE/DVTs who presents status post worsening LE edema thought to be due to DVTs and CHF. PLAN: 1. Rehab- PT/OT advance gait training and ADLs, incorporate lymphatic massage to help alleviate bilat LE swelling, ambulating with RW-room privileges -monitor for shortness of breath/exertion, and modulate therapy for max RPE of 4 (moderate exertion) 2. Neuro: stable 3. Cardiac: hx Afib s/p atrial appendage removal- c/u carvedilol -chronic systolic and diastolic CHF with EF 30-35%, c/u low salt diet, fluid restriction, and daily weights- renal managing diuretics, changed to Torsemide 30mg dily, c/u spironolactone 25mg daily -medicine consulted to assist in management -HLD- statin -CAD s/p AICD/PM with MVR c/u ASA 4. Resp: encourage incentive spirometry monitor for signs of infection 5. Vasc: hx of PE/DVT, now with bilat occlusive CFV DVTs, patient switched from heparin drip to Eliquis 10mg BID x7 days, then transition to 5mg BID -+IVC filter 6. Renal: CKD4, nephrology assisting with fluid management in setting of CKD- recs greatly appreciated -Hyponatremia, improving on fluid restriction 7. Endo: pmh DM c/u glyburide and ISS, adjust prn 8. GI ppx: protonix BID 9. DVT: c/u eliquis 10. Pain: Tylenol prn and menthol salicylate to bilat ankles -patient beleives he is having a gout attack which he reports usually repsonds to steroids-will start prednisone 20mg BID -c/u allopurinol- uric acid added to today's lab 11. Dispo: 09-18-19 to home, progressing towards goals Allergies Coded Allergies: No Known Drug Allergies (Verified Allergy, Unknown, 09/01/19) Vital Signs Vital Signs Date Time Temp Pulse Resp B/P (MAP) Pulse Ox O2 Delivery O2 Flow Rate FiO2 09/13/19 14:00 97.2 60 19 96/65 (75) 98 Room Air Laboratory Data CBC/BMP Laboratory Tests 09/13/19 07:04 Labs 24H Laboratory Tests 2 09/12/19 20:33: Bedside Glucose (Misc Panel) 146H 09/13/19 05:41: Bedside Glucose (Misc Panel) 111 09/13/19 07:04: Anion Gap 11, Glomerular Filtration Rate 23.4L, Calcium Level 9.0, Total Bilirubin 1.1#H, Aspartate Amino Transf (AST/SGOT) 21, Alanine Aminotransferase (ALT/SGPT) 29, Alkaline Phosphatase 152H, Total Protein 7.4, Albumin 3.1L, Albumin/Globulin Ratio 0.72L 09/13/19 12:06: Bedside Glucose (Misc Panel) 79L 09/13/19 16:41: Bedside Glucose (Misc Panel) 183H Current Medications Current Medications Current Medications Medications (Trade) Dose Ordered Sig/Vinny Route PRN Reason Start Time Stop Time Status Last Admin Dose Admin Acetaminophen (Tylenol Tab) 650 mg Q4HP PRN PO fever/pain 09/05/19 17:30 09/13/19 13:11 Allopurinol (Zyloprim) 100 mg DAILY PO 09/06/19 09:00 09/13/19 08:31 DC 09/12/19 08:00 Allopurinol (Zyloprim) 200 mg DAILY PO 09/13/19 09:00 09/13/19 09:13 Apixaban (Eliquis) 5 mg BID PO 09/11/19 21:00 09/13/19 09:12 Apixaban (Eliquis) 10 mg BID PO 09/05/19 21:00 09/11/19 09:01 DC 09/11/19 08:18 Aspirin (Aspirin Chewable) 81 mg DAILY PO 09/06/19 09:00 09/13/19 09:13 Atorvastatin Calcium (Lipitor) 10 mg DAILY PO 09/06/19 09:00 09/13/19 09:13 Carvedilol (COReg) 3.125 mg BID PO 09/11/19 21:00 09/13/19 09:14 Carvedilol (COReg) 6.25 mg BID PO 09/05/19 21:00 09/11/19 12:06 DC 09/11/19 08:18 Dextrose (Dextrose 50%) 25 ml ASDIRECTED PRN IV SEE LABEL COMMENTS 09/05/19 17:30 Docusate Sodium (Colace) 100 mg BID PO 09/05/19 21:00 09/13/19 09:13 Glucagon (Glucagon) 1 mg ASDIRECTED PRN SC SEE LABEL COMMENTS 09/05/19 17:30 Glucose (Glucose) 16 GM ASDIRECTED PRN PO SEE LABEL COMMENTS 09/05/19 17:30 Glyburide (Diabeta, Micronase) 1.25 mg DAILY@0730 PO 09/06/19 07:30 09/13/19 09:14 Insulin Human Lispro (HumaLOG INSULIN) SEE PROTOCOL TABLE AC SC 09/05/19 17:30 09/13/19 17:29 Insulin Human Lispro (HumaLOG INSULIN) SEE PROTOCOL TABLE QHS SC 09/05/19 21:00 Magnesium Hydroxide (Milk Of Magnesia) 30 ml DAILYPRN PRN PO CONSTIPATION 09/05/19 17:30 Menthol/Methyl Salicylate (Bengay Cream) bilat ankles TID TOP 09/12/19 21:00 09/13/19 09:15 Pantoprazole Sodium (Protonix) 40 mg BID PO 09/05/19 21:00 09/13/19 09:13 Potassium Chloride (Micro-K Extencaps) 20 meq DAILY PO 09/13/19 09:00 09/13/19 12:25 Prednisone (Deltasone) 20 mg BID PO 09/13/19 18:45 Senna (Senokot) 1 tab QHS PO 09/05/19 21:00 09/12/19 22:17 Spironolactone (Aldactone) 25 mg QAM PO 09/09/19 09:00 09/13/19 09:14 Spironolactone (Aldactone) 50 mg BID@09,17 PO 09/06/19 09:00 09/06/19 11:22 DC 09/06/19 08:21 Spironolactone (Aldactone) 50 mg DAILY PO 09/07/19 09:00 09/07/19 09:23 DC Torsemide (Demadex) 20 mg BID@0900,1700 PO 09/10/19 17:00 09/11/19 19:20 DC 09/11/19 16:55 Torsemide (Demadex) 20 mg DAILY PO 09/06/19 12:45 09/07/19 09:23 DC 09/06/19 14:40 Torsemide (Demadex) 20 mg DAILY PO 09/09/19 09:00 09/10/19 11:42 DC 09/10/19 08:14 Torsemide (Demadex) 20 mg DAILY PO 09/13/19 09:00 09/12/19 13:00 DC Torsemide (Demadex) 30 mg DAILY PO 09/12/19 13:00 09/13/19 09:12 YESY JORGE MD Sep 13, 2019 18:43
[2019-09-13] MEDS: predniSONE 20 MG TAB PO SCH (18:44)
[2019-09-13 19:30] VITALS: BP 119/70
[2019-09-13] MEDS: SENNA 8.6 MG TAB (SENOKOT) PO SCH (21:13)
--- NOTE | 2019-09-13 22:03 | IPN ---
DATE: 09/13/2019 SUBJECTIVE: The patient is seen and examined this morning at the bedside and again later walking around in the hallway receiving his physical therapy. He reports that his lower extremities feel less tight and he also reports that his dyspnea on exertion is slowly improving. Vital signs: Temperature 97.2, pulse 60, respiratory rate 19, blood pressure 129/66, saturating 98% on room air. Intake yesterday was 890. Urine output yesterday was 1700. Weight in the bed scale today is 137 kg, which is decreased from prior. General: The patient is seen sitting out of bed to the chair and also walking around in the hallways, awake, alert, oriented x3, comfortable in no apparent distress, smiling. Extraocular muscles are intact. Tongue is moist. Neck is supple. Jugular veins are not elevated. Cardiac: S1, S2, regular rate and rhythm. Lungs were clear to auscultation bilaterally. No crackle, rale or rhonchus. Abdomen is soft, obese and nontender. Extremities: Show 2 to 3+ pitting edema that extends up to the hip, thigh and dependent areas. There is scattered ecchymosis present as well. Neurologic: He is oriented x3, no focal deficit. Extremities: Show significant pitting edema. LABORATORY DATA: Sodium 135, potassium 3.6, bicarbonate 21, BUN 72, creatinine 2.96, hemoglobin 13.4. INPATIENT MEDICATIONS: I increased the allopurinol to 200 mg by mouth daily and started him on potassium 20 mEq by mouth daily. Remainder of medications are unchanged from prior PROBLEMS: 1. Chronic kidney disease (CKD) stage IV. Prior labs from his primary bin piler Dr. Sheehan were obtained. His baseline creatinine is around 3.0 and the patient is at his baseline renal function. His volume status is decompensated and he continues on spironolactone 25 mg by mouth daily and torsemide 30 mg by mouth daily along with a fluid restriction. We will check a renal panel daily and up titrate his diuretics as tolerated. He also has some mild and borderline blood pressures for which reason I am not aggressively diuresing him. 2. Decompensated systolic congestive heart failure, ejection fraction of 30%. Some of his peripheral edema is due to deep vein thromboses (DVTs); however, he is also mildly volume overloaded. His renal function is stable at baseline. He is in daily net negative fluid balance. His daily weights are down trending. Continue current dose of spironolactone and torsemide along with fluid restriction. 3. Hypertension. Blood pressures are very well controlled. Occasionally systolic gets down into the 90s and the patient does get lightheaded every now and then with exertion and physical therapy. We have decreased the Carvedilol dose down to 3.125 mg twice a day and he is continued on torsemide and spironolactone. 4. Hyperuricemia and history of gout. His allopurinol dose has increased to 200 mg by mouth daily.
[2019-09-14 05:10] VITALS: BP 126/76
[2019-09-14 07:38] LABS: BILIRUBIN,TOTAL 0.8 MG/DL (0.2-1.0); CREATININE FOR GFR 2.86 MG/DL (0.70-1.30); GLOMERULAR FILTRATION RATE 23.8 (>49); POTASSIUM SERUM 3.8 MEQ/L (3.5-5.1); TOTAL PROTEIN 7.1 GM/DL (6.4-8.2)
[2019-09-14] MEDS: HumaLOG INSULIN (NovoLOG) PER UNIT SC SCH ×4 (08:40→21:00)
[2019-09-14] MEDS: SPIRONOLACTONE 25 MG TAB PO SCH (08:40)
[2019-09-14] MEDS: ASPIRIN 81 MG CHEW TABLET PO SCH (08:40)
[2019-09-14] MEDS: glyBURIDE 2.5 MG TAB PO SCH (08:40)
[2019-09-14] MEDS: POTASSIUM CHLORIDE 10 MEQ SR TABLET PO SCH (08:41)
[2019-09-14] MEDS: predniSONE 20 MG TAB PO SCH ×2 (08:41→21:42)
[2019-09-14] MEDS: APIXABAN 5 MG TAB (ELIQUIS) PO SCH ×2 (08:41→21:41)
[2019-09-14] MEDS: TORSEMIDE 10 MG TABLET PO SCH (08:41)
[2019-09-14] MEDS: ATORVASTATIN 10 MG TAB PO SCH (08:41)
[2019-09-14] MEDS: DOCUSATE SODIUM 100 MG CAP PO SCH ×2 (08:41→21:41)
[2019-09-14] MEDS: allopurinoL 100 MG TAB PO SCH (08:42)
[2019-09-14] MEDS: PANTOPRAZOLE 40MG TAB (PROTONIX) PO SCH ×2 (08:42→21:41)
[2019-09-14] MEDS: CARVedilol 3.125 MG TAB PO SCH ×2 (08:42→21:42)
[2019-09-14] MEDS: ANALGESIC BALM CRM 120 GM TOP SCH ×3 (09:04→21:44)
--- NOTE | 2019-09-14 11:39 | IPNPDOC ---
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 REVIEW OF SYSTEMS: The following is a completed review of systems and has been reviewed. Review of systems otherwise unremarkable. PAIN: Patient self reports bilateral calf pain EYES: No recent vision changes EARS, NOSE, & THROAT: No throat pain, or dysphagia, or rhinorrhea CARDIOVASCULAR: Denies chest pain or palpitations PULMONARY: Denies shortness of breath GASTROINTESTINAL: Denies constipation/diarrhea GENITOURINARY: denies dysuria MUSCULOSKELETAL: bilat LE swelling, +ankle pain (improving) NEUROLOGICAL:no tremor or seizure activity HEMATOLOGICAL: denies easy bruising SKIN: RLE ecchymosis PSYCHIATRIC: Unremarkable All other review of systems found to be negative. PHYSICAL EXAMINATION: VITAL SIGNS: Please see below. GENERAL: Pleasant and cooperative. No acute distress. morbidly obese HEENT: PERRL. Extraocular movements intact. Clear conjunctiva CARDIOVASCULAR: Irregular rate and rhythm. No murmurs, rubs, or gallops LUNGS: Clear to auscultation bilaterally. No wheezes. No rhonchi ABDOMEN: Soft, nontender, nondistended. Positive bowel sounds. Normal active bowel sounds NEUROLOGICAL: Alert and oriented times three. Cranial nerves II through XII grossly intact. Sensation grossly intact EXTREMITIES: 5\5 strength bilateral upper extremities. 4\5 strength right lower extremity. 4/5 strength in left lower extremity. (+) bilat calf edema (improving) (+) Jonathan's bilat (+) mild TTP bilat ankles (improving), no local swelling, however generalized edema (improving) SKIN: right calf ecchymosis ASSESSMENT:64-year-old M with past medical history of CKD4, mobid obesity, PE/DVTs who presents status post worsening LE edema thought to be due to DVTs and CHF. PLAN: 1. Rehab- PT/OT advance gait training and ADLs, incorporate lymphatic massage to help alleviate bilat LE swelling, ambulating with RW-room privileges -monitor for shortness of breath/exertion, and modulate therapy for max RPE of 4 (moderate exertion) 2. Neuro: stable 3. 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 Resp: encourage incentive spirometry monitor for signs of infection 5. Vasc: hx of PE/DVT, now with bilat occlusive CFV DVTs, c/u Eliquis 5mg BID, +IVC filter 6. Renal: CKD4, nephrology assisting with fluid management in setting of CKD- recs greatly appreciated -Hyponatremia stable around 134 on fluid restriction 7. Endo: pmh DM c/u glyburide and ISS, adjust prn 8. GI ppx: protonix BID 9. DVT: c/u eliquis 10. Pain: Tylenol prn and menthol salicylate to bilat ankles -gout flare, uric acid elevate 8.8, patient reports his ankle pain has improved with steroids, c/u prednisone 20 BID, will taper over 10 days -c/u allopurinol, will avoid colchicine with poor renal function and prednisone alone seems to be working 11. Dispo: 09-18-19 to home, progressing towards goals Allergies Coded Allergies: No Known Drug Allergies (Verified Allergy, Unknown, 09/01/19) Vital Signs Vital Signs Date Time Temp Pulse Resp B/P (MAP) Pulse Ox O2 Delivery O2 Flow Rate FiO2 09/14/19 08:42 59 126/76 09/14/19 05:10 98.3 18 99 Room Air Laboratory Data CBC/BMP Laboratory Tests 09/14/19 06:51 Labs 24H Laboratory Tests 2 09/13/19 12:06: Bedside Glucose (Misc Panel) 79L 09/13/19 16:41: Bedside Glucose (Misc Panel) 183H 09/13/19 20:33: Bedside Glucose (Misc Panel) 108 09/14/19 05:32: Bedside Glucose (Misc Panel) 135H 09/14/19 06:51: Anion Gap 10, Glomerular Filtration Rate 23.8L, Calcium Level 9.0, Total Bilirubin 0.8, Aspartate Amino Transf (AST/SGOT) 22, Alanine Aminotransferase (ALT/SGPT) 26, Alkaline Phosphatase 149H, GX-Upo-V-Type Natriuretic Peptide 2564H, Total Protein 7.1, Albumin 3.0L, Albumin/Globulin Ratio 0.73L Current Medications Current Medications Current Medications Medications (Trade) Dose Ordered Sig/Vinny Route PRN Reason Start Time Stop Time Status Last Admin Dose Admin Acetaminophen (Tylenol Tab) 650 mg Q4HP PRN PO fever/pain 09/05/19 17:30 09/13/19 13:11 Allopurinol (Zyloprim) 100 mg DAILY PO 09/06/19 09:00 09/13/19 08:31 DC 09/12/19 08:00 Allopurinol (Zyloprim) 200 mg DAILY PO 09/13/19 09:00 09/14/19 08:42 Apixaban (Eliquis) 5 mg BID PO 09/11/19 21:00 09/14/19 08:41 Apixaban (Eliquis) 10 mg BID PO 09/05/19 21:00 09/11/19 09:01 DC 09/11/19 08:18 Aspirin (Aspirin Chewable) 81 mg DAILY PO 09/06/19 09:00 09/14/19 08:40 Atorvastatin Calcium (Lipitor) 10 mg DAILY PO 09/06/19 09:00 09/14/19 08:41 Carvedilol (COReg) 3.125 mg BID PO 09/11/19 21:00 09/14/19 08:42 Carvedilol (COReg) 6.25 mg BID PO 09/05/19 21:00 09/11/19 12:06 DC 09/11/19 08:18 Dextrose (Dextrose 50%) 25 ml ASDIRECTED PRN IV SEE LABEL COMMENTS 09/05/19 17:30 Docusate Sodium (Colace) 100 mg BID PO 09/05/19 21:00 09/14/19 08:41 Glucagon (Glucagon) 1 mg ASDIRECTED PRN SC SEE LABEL COMMENTS 09/05/19 17:30 Glucose (Glucose) 16 GM ASDIRECTED PRN PO SEE LABEL COMMENTS 09/05/19 17:30 Glyburide (Diabeta, Micronase) 1.25 mg DAILY@0730 PO 09/06/19 07:30 09/14/19 08:40 Insulin Human Lispro (HumaLOG INSULIN) SEE PROTOCOL TABLE AC SC 09/05/19 17:30 09/14/19 08:40 Insulin Human Lispro (HumaLOG INSULIN) SEE PROTOCOL TABLE QHS SC 09/05/19 21:00 Magnesium Hydroxide (Milk Of Magnesia) 30 ml DAILYPRN PRN PO CONSTIPATION 09/05/19 17:30 Menthol/Methyl Salicylate (Bengay Cream) bilat ankles TID TOP 09/12/19 21:00 09/14/19 09:04 Pantoprazole Sodium (Protonix) 40 mg BID PO 09/05/19 21:00 09/14/19 08:42 Potassium Chloride (Micro-K Extencaps) 20 meq DAILY PO 09/13/19 09:00 09/14/19 08:41 Prednisone (Deltasone) 20 mg BID PO 09/13/19 18:45 09/14/19 08:41 Senna (Senokot) 1 tab QHS PO 09/05/19 21:00 09/13/19 21:13 Spironolactone (Aldactone) 25 mg QAM PO 09/09/19 09:00 09/14/19 08:40 Spironolactone (Aldactone) 50 mg BID@09,17 PO 09/06/19 09:00 09/06/19 11:22 DC 09/06/19 08:21 Spironolactone (Aldactone) 50 mg DAILY PO 09/07/19 09:00 09/07/19 09:23 DC Torsemide (Demadex) 20 mg BID@0900,1700 PO 09/10/19 17:00 09/11/19 19:20 DC 09/11/19 16:55 Torsemide (Demadex) 20 mg DAILY PO 09/06/19 12:45 09/07/19 09:23 DC 09/06/19 14:40 Torsemide (Demadex) 20 mg DAILY PO 09/09/19 09:00 09/10/19 11:42 DC 09/10/19 08:14 Torsemide (Demadex) 20 mg DAILY PO 09/13/19 09:00 09/12/19 13:00 DC Torsemide (Demadex) 30 mg DAILY PO 09/12/19 13:00 09/14/19 08:41 YESY JORGE MD Sep 14, 2019 11:39
[2019-09-14 14:00] VITALS: BP 118/62
--- NOTE | 2019-09-14 14:34 | IPNPDOC ---
Subjective Date Seen The patient was seen on 09/14/19. Subjective Chief Complaint/HPI The patient is a 64-year-old male who was seen this morning following admission to acute rehabilitation unit. Patient feels he has continued to improve. He was in good spirits today, working in the gym. Patient reported his breathing and shortness of breath continue to improve. He can tell that the swelling in both his legs has improved and the pain in his ankles has resolved with compression stockings. Per nursing staff: swelling in bilateral ankles and legs continue to improve. General: Denies: Chills, Night Sweats, Fatigue, Normal Appetite Constitutional: Denies: Chills, Fever, Night Sweats Eyes: Denies: Pain, Vision change ENT: Denies: Head Aches, Dysphagia Skin: Denies: Rash Pulmonary: Denies: Dyspnea, Cough Cardiovascular: Denies: Chest Pain, Palpitations, Lt Headedness Gastrointestinal: Denies: Nausea, Vomiting, Abdominal Pain Genitourinary: Denies: Dysuria Hematologic: Denies: Bruising, Bleeding Excessively Musculoskeletal: Denies: Neck Pain, Back Pain, Shoulder Pain, Arm Pain, Hand Pain, Leg Pain, Foot Pain, Joint Pain, Muscle Pain, Spasms, Other Symptoms Neurological: Denies: Weakness Psych: Reports: Mood Normal Objective Physical Examination General Exam: Positive: Alert, Cooperative, No Acute Distress ENT Exam: Positive: Mucous membr. moist/pink, Pharynx Normal Neck Exam: Positive: Supple; Negative: thyromegaly Chest Exam: Positive: Clear to auscultation, Normal air movement Heart Exam: Positive: Rate Normal Abdomen Exam: Positive: Normal bowel sounds Extremity Exam: Positive: Edema (2+ edema b/l lower extremities ) Skin Exam: Positive: Nl turgor and temperature Neuro Exam: Positive: Other (ambulates with assistance x1 and with walker ) Psych Exam: Positive: Mental status NL, Mood NL Assessment /Plan Problems (1) Shortness of breath Status: Acute Response to Treatment: Improving (2) CHF (congestive heart failure) Status: Chronic Response to Treatment: Controlled Problem Text: Diuretics continue to be effective management of CHF exacerbations. Continue with current regimen and monitor daily weights and symptoms. Plan/VTE VTE Prophylaxis Ordered?: Yes (Patient currently takes Eliquis 5mg twice per day) Plan Diet: Continue Current Activity: Continue Current Therapy: PT, OT Patient will continue to be monitored per Rehab. physician. Medical issues will be addressed by the hospitalist group. VS, I&O, 24H, Fishbone Vital Signs/I&O Vital Signs Date Time Temp Pulse Resp B/P (MAP) Pulse Ox O2 Delivery O2 Flow Rate FiO2 09/14/19 08:42 59 126/76 09/14/19 05:10 98.3 18 99 Room Air I&O- Last 24 Hours up to 6 AM 09/14/19 06:00 Intake Total 1020 ml Output Total 700 ml Balance 320 ml Laboratory Data 24H LABS Laboratory Tests 2 09/13/19 16:41: Bedside Glucose (Misc Panel) 183H 09/13/19 20:33: Bedside Glucose (Misc Panel) 108 09/14/19 05:32: Bedside Glucose (Misc Panel) 135H 09/14/19 06:51: Anion Gap 10, Glomerular Filtration Rate 23.8L, Calcium Level 9.0, Total Bilirubin 0.8, Aspartate Amino Transf (AST/SGOT) 22, Alanine Aminotransferase (ALT/SGPT) 26, Alkaline Phosphatase 149H, QI-Bwy-S-Type Natriuretic Peptide 2564H, Total Protein 7.1, Albumin 3.0L, Albumin/Globulin Ratio 0.73L 09/14/19 11:37: Bedside Glucose (Misc Panel) 79L CBC/BMP Laboratory Tests 09/14/19 06:51 YONI SCHROEDER PA-C Sep 14, 2019 14:34
[2019-09-14 21:00] VITALS: BP 129/67
[2019-09-14] MEDS: SENNA 8.6 MG TAB (SENOKOT) PO SCH (21:41)
[2019-09-15 06:23] VITALS: BP 130/78
[2019-09-15 07:04] LABS: BASO % 0.1 % (0.0-1.0); HEMATOCRIT 37.6 % (42.0-52.0); HEMOGLOBIN 12.3 g/dl (13.5-17.5); LYMPH # 0.7 10^3/uL (1.5-5.0); LYMPH % 7.6 % (24.0-44.0); MEAN CORPUSCULAR HEMOGLOBIN 28.8 pg (27.0-33.0); MEAN CORPUSCULAR HGB CONC 32.7 g/dl (32.0-36.5); MEAN CORPUSCULAR VOLUME 88.1 fl (80.0-96.0); MONO # 0.5 10^3/uL (0.0-0.8); MONO % 5.3 % (0.0-5.0); NEUTROPHILS # 7.3 10^3/uL (1.5-8.5); NEUTROPHILS % 85.7 % (36.0-66.0); PLATELET COUNT, AUTOMATED 297 10^3/uL (150-450); RED BLOOD COUNT 4.27 10^6/uL (4.30-6.10); WHITE BLOOD COUNT 8.5 10^3/uL (4.0-10.0)
[2019-09-15 07:27] LABS: BILIRUBIN,TOTAL 0.7 MG/DL (0.2-1.0); CALCIUM LEVEL 8.9 MG/DL (8.8-10.2); CREATININE FOR GFR 2.9 MG/DL (0.70-1.30); GLOMERULAR FILTRATION RATE 23.4 (>49); POTASSIUM SERUM 3.9 MEQ/L (3.5-5.1); TOTAL PROTEIN 6.9 GM/DL (6.4-8.2)
[2019-09-15] MEDS: APIXABAN 5 MG TAB (ELIQUIS) PO SCH ×2 (08:54→20:42)
[2019-09-15] MEDS: DOCUSATE SODIUM 100 MG CAP PO SCH ×2 (08:54→20:41)
[2019-09-15] MEDS: TORSEMIDE 10 MG TABLET PO SCH ×2 (08:55→17:35)
[2019-09-15] MEDS: allopurinoL 100 MG TAB PO SCH (08:55)
[2019-09-15] MEDS: ASPIRIN 81 MG CHEW TABLET PO SCH (08:55)
[2019-09-15] MEDS: SPIRONOLACTONE 25 MG TAB PO SCH ×2 (08:55→17:36)
[2019-09-15] MEDS: PANTOPRAZOLE 40MG TAB (PROTONIX) PO SCH ×2 (08:55→20:42)
[2019-09-15] MEDS: ATORVASTATIN 10 MG TAB PO SCH (08:56)
[2019-09-15] MEDS: HumaLOG INSULIN (NovoLOG) PER UNIT SC SCH ×4 (08:56→20:34)
[2019-09-15] MEDS: glyBURIDE 2.5 MG TAB PO SCH (08:56)
[2019-09-15] MEDS: predniSONE 20 MG TAB PO SCH ×2 (08:56→20:42)
[2019-09-15] MEDS: POTASSIUM CHLORIDE 10 MEQ SR TABLET PO SCH (08:57)
[2019-09-15] MEDS: CARVedilol 3.125 MG TAB PO SCH ×2 (09:00→20:42)
[2019-09-15] MEDS: ANALGESIC BALM CRM 120 GM TOP SCH ×3 (09:02→20:42)
[2019-09-15 14:00] VITALS: BP 124/78
[2019-09-15 19:30] VITALS: BP 137/75
--- NOTE | 2019-09-15 20:17 | IPN ---
DATE: 09/15/2019 SUBJECTIVE: Danyel is seen and examined this morning at the bedside in the rehabilitation unit. His urine output was not recorded yesterday and his renal function remains at baseline. He complains of ongoing leg swelling. The heaviness in his legs makes him tire more easily with physical therapy. VITAL SIGNS: Temperature 98.2, pulse 60, respiratory rate 18, blood pressure 130/78, saturating 98% on room air. Intake yesterday was 720, urine output yesterday was not recorded. Weight in the bed scale today is decreased at 136.8 kg. GENERAL: The patient is seen sitting out of bed to the chair, awake, alert, oriented times three, comfortable, in no apparent distress. Extraocular muscles are intact. Tongue is moist. Neck is supple. Jugular veins are not elevated. CARDIAC: S1, S2, regular rate and rhythm. Lungs are clear to auscultation bilaterally. No crackle, rale or rhonchi. Abdomen is soft, obese and nontender. Extremities show 3+ pitting edema that extends up to the hip, thigh and dependent area and is more pronounced in the right lower extremity. There is scattered ecchymosis as well. NEUROLOGIC: He is oriented times three. No focal deficit. LABORATORY DATA: White count 8.5, hemoglobin 12.3, sodium 136, potassium 3.9, bicarbonate 22, BUN 72, creatinine 2.9. INPATIENT MEDICATIONS: Spironolactone was increased to 25 mg by mouth twice daily. Torsemide was increased to 30 mg by mouth twice daily. PROBLEMS: 1. Chronic kidney disease (CKD), stage IV. The patient's baseline creatinine is around the 3.0 based on his old laboratories from primary data base design analyst. He is at baseline renal function. His volume status is decompensated. His spironolactone and torsemide are both increased, spironolactone to 25 mg twice daily and torsemide to 30 mg twice daily. He continues on fluid restriction and we will continue to titrate his diuretics as tolerated with a close watch on his blood pressure. 2. Decompensated systolic congestive heart failure, ejection fraction (EF) of 30% with bilateral deep vein thromboses (DVTs) and significant peripheral edema. Spironolactone and torsemide are both increased today and made twice daily. Continue fluid restriction. 3. Hypertension. Blood pressures have been very well-controlled. Would watch for borderline blood pressure now that the diuretics are being increased. He is on a cut-down dose of Carvedilol 3.125 mg twice daily with generous holding parameters and his torsemide and spironolactone were increased. 4. Hyperuricemia and history of gout. Continue allopurinol 200 mg by mouth daily. Would recommend to cut down his steroids as it will further salt and fluid retention.
[2019-09-15] MEDS: SENNA 8.6 MG TAB (SENOKOT) PO SCH (20:41)
[2019-09-16 05:30] VITALS: BP 131/78
[2019-09-16] MEDS: PANTOPRAZOLE 40MG TAB (PROTONIX) PO SCH ×2 (09:24→21:05)
[2019-09-16] MEDS: glyBURIDE 2.5 MG TAB PO SCH (09:25)
[2019-09-16] MEDS: HumaLOG INSULIN (NovoLOG) PER UNIT SC SCH ×4 (09:27→21:00)
[2019-09-16] MEDS: allopurinoL 100 MG TAB PO SCH (09:27)
[2019-09-16] MEDS: TORSEMIDE 10 MG TABLET PO SCH ×2 (09:27→17:02)
[2019-09-16] MEDS: ATORVASTATIN 10 MG TAB PO SCH (09:27)
[2019-09-16] MEDS: APIXABAN 5 MG TAB (ELIQUIS) PO SCH ×2 (09:28→21:05)
[2019-09-16] MEDS: CARVedilol 3.125 MG TAB PO SCH ×2 (09:28→21:05)
[2019-09-16] MEDS: predniSONE 20 MG TAB PO SCH ×2 (09:28→21:05)
[2019-09-16] MEDS: DOCUSATE SODIUM 100 MG CAP PO SCH ×2 (09:28→21:05)
[2019-09-16] MEDS: ASPIRIN 81 MG CHEW TABLET PO SCH (09:28)
[2019-09-16] MEDS: SPIRONOLACTONE 25 MG TAB PO SCH ×2 (09:28→17:02)
[2019-09-16] MEDS: ANALGESIC BALM CRM 120 GM TOP SCH ×3 (09:31→21:06)
--- NOTE | 2019-09-16 13:35 | IPN ---
DATE: 09/16/2019 SUBJECTIVE: The patient is a 64-year-old male who was seen and examined in the chair at bedside in the acute rehabilitation unit. The patient's renal function has been at its baseline and no new labs have been completed. The patient's leg swelling has slightly improved, but is still present all the way up to the hip. This makes the patient tire more easily during physical therapy, but the patient says he is otherwise doing well. The patient has a plan to be discharged on Wednesday. OBJECTIVE: Vitals: Temperature 98.1, pulse 62, respiratory rate 18, blood pressure 131/78, pulse oximetry 99% on room air. There is no documented urine output over the last three days. GENERAL: The patient is an alert and oriented male patient who is sitting in his bedside chair who did not appear to be in any distress. HEENT: Normocephalic, atraumatic. Anicteric sclera. Moist mucous membranes. NECK: Supple with no jugular venous distention (JVD). CARDIAC: Regular rate and rhythm with no murmurs auscultated. RESPIRATORY: Clear to auscultation bilaterally. ABDOMEN: Soft. Obese. Nontender to palpation. Extremities: There is 3+ pitting edema that extends up to the hip through the thigh and is more pronounced in the right lower extremity. LABORATORIES: There were no new laboratory results as of today. Last labs were drawn on 09/15/2019. INPATIENT MEDICATIONS: The patient's spironolactone was increased to 25 mg twice a day and the patient's torsemide was increased to 30 mg twice a day yesterday by Dr. Kamran Burt. ASSESSMENT AND PLAN: 1. Chronic kidney disease stage IV. The patient's baseline creatinine around 3 based on old laboratories from his primary scroll saw operator. He is at his baseline renal function. His volume status is decompensated so his spironolactone and torsemide were both increased. The patient continues on a fluid restriction and the patient's blood pressure has been stable with the new dose of diuretics and we will continue to monitor. 2. Decompensated systolic congestive heart failure with an ejection fraction of 30% and bilateral deep vein thromboses, and significant peripheral edema. The patient's spironolactone and torsemide were increased yesterday and he will continue with the fluid restriction. 3. Hypertension. Blood pressure has been very well controlled. The patient will need close monitoring as his diuretics have been increased, but his blood pressures has been stable to tolerate the increase in diuretics. 4. Hyperuricemia and history of gout. The patient's allopurinol will continue 200 mg by mouth daily. We recommend cutting down the patient's steroids as will further salt and fluid retention.
[2019-09-16 14:00] VITALS: BP 120/71
[2019-09-16 19:20] VITALS: BP 130/50
[2019-09-16 19:40] VITALS: BP 142/73
[2019-09-16] MEDS: SENNA 8.6 MG TAB (SENOKOT) PO SCH (21:05)
[2019-09-17 05:10] VITALS: BP 125/77
[2019-09-17] MEDS: ANALGESIC BALM CRM 120 GM TOP SCH ×3 (09:00→20:43)
[2019-09-17] MEDS: TORSEMIDE 10 MG TABLET PO SCH ×2 (09:03→17:32)
[2019-09-17] MEDS: APIXABAN 5 MG TAB (ELIQUIS) PO SCH ×2 (09:03→20:43)
[2019-09-17] MEDS: ATORVASTATIN 10 MG TAB PO SCH (09:03)
[2019-09-17] MEDS: PANTOPRAZOLE 40MG TAB (PROTONIX) PO SCH ×2 (09:03→20:43)
[2019-09-17] MEDS: CARVedilol 3.125 MG TAB PO SCH ×2 (09:04→20:42)
[2019-09-17] MEDS: HumaLOG INSULIN (NovoLOG) PER UNIT SC SCH ×4 (09:04→20:45)
[2019-09-17] MEDS: ASPIRIN 81 MG CHEW TABLET PO SCH (09:04)
[2019-09-17] MEDS: allopurinoL 100 MG TAB PO SCH (09:05)
[2019-09-17] MEDS: glyBURIDE 2.5 MG TAB PO SCH (09:05)
[2019-09-17] MEDS: predniSONE 20 MG TAB PO SCH ×2 (09:05→20:43)
[2019-09-17] MEDS: DOCUSATE SODIUM 100 MG CAP PO SCH ×2 (09:05→20:43)
[2019-09-17] MEDS: SPIRONOLACTONE 25 MG TAB PO SCH ×2 (09:05→17:32)
[2019-09-17 14:00] VITALS: BP 125/68
[2019-09-17 20:00] VITALS: BP 126/71
[2019-09-17] MEDS: SENNA 8.6 MG TAB (SENOKOT) PO SCH (20:42)
[2019-09-18 06:00] VITALS: BP 136/84
[2019-09-18] MEDS: HumaLOG INSULIN (NovoLOG) PER UNIT SC SCH ×2 (08:17→11:36)
[2019-09-18] MEDS: APIXABAN 5 MG TAB (ELIQUIS) PO SCH (08:18)
[2019-09-18] MEDS: glyBURIDE 2.5 MG TAB PO SCH (08:18)
[2019-09-18] MEDS: ASPIRIN 81 MG CHEW TABLET PO SCH (08:18)
[2019-09-18] MEDS: SPIRONOLACTONE 25 MG TAB PO SCH (08:18)
[2019-09-18] MEDS: ATORVASTATIN 10 MG TAB PO SCH (08:18)
[2019-09-18] MEDS: PANTOPRAZOLE 40MG TAB (PROTONIX) PO SCH (08:18)
[2019-09-18 08:19] VITALS: BP 136/84
[2019-09-18] MEDS: allopurinoL 100 MG TAB PO SCH (08:19)
[2019-09-18] MEDS: TORSEMIDE 10 MG TABLET PO SCH (08:19)
[2019-09-18] MEDS: predniSONE 20 MG TAB PO SCH (08:19)
[2019-09-18] MEDS: CARVedilol 3.125 MG TAB PO SCH (08:19)
[2019-09-18] MEDS: DOCUSATE SODIUM 100 MG CAP PO SCH (08:19)
[2019-09-18] MEDS: ANALGESIC BALM CRM 120 GM TOP SCH (08:21)
[2019-09-18] MEDS ORDERED: ASPI81CH8 PO (09:47)
[2019-09-18] MEDS ORDERED: PANT40TA3 PO (09:47)
[2019-09-18] MEDS ORDERED: ELIQ5TAB PO (09:47)
[2019-09-18] MEDS ORDERED: ALDA25TA2 PO (09:47)
[2019-09-18] MEDS ORDERED: TORS10TA3 PO (09:47)
[2019-09-18] MEDS ORDERED: ATOR1TAB19 PO (09:47)
[2019-09-18] MEDS ORDERED: GLYB25TA PO (09:47)
[2019-09-18] MEDS ORDERED: ALLO10TA PO (09:47)
[2019-09-18] MEDS ORDERED: CARV3.12 PO (09:47)
[2019-09-18] MEDS ORDERED: PRED5TA PO (09:47)
--- NOTE | 2019-09-18 09:51 | IPNPDOC ---
PM&R Progress Note DATE OF SERVICE: Sep 15, 2019 [employer] Progress Note Subjective: Patient reporting his ankles continue to feel better, he is reporting he intends to follow-up more closely with his environmental safety specialist and renal doctor. he was encouraged to pursue outpatient cardiac rehab and obtain the order from either Dr. Sheehan or Dr. Perez. REVIEW OF SYSTEMS: The following is a completed review of systems and has been reviewed. Review of systems otherwise unremarkable. PAIN: Patient self reports bilateral calf pain EYES: No recent vision changes EARS, NOSE, & THROAT: No throat pain, or dysphagia, or rhinorrhea CARDIOVASCULAR: Denies chest pain or palpitations PULMONARY: Denies shortness of breath GASTROINTESTINAL: Denies constipation/diarrhea GENITOURINARY: denies dysuria MUSCULOSKELETAL: bilat LE swelling, +ankle pain (improving) NEUROLOGICAL:no tremor or seizure activity HEMATOLOGICAL: denies easy bruising SKIN: RLE ecchymosis PSYCHIATRIC: Unremarkable All other review of systems found to be negative. PHYSICAL EXAMINATION: VITAL SIGNS: Please see below. GENERAL: Pleasant and cooperative. No acute distress. morbidly obese HEENT: PERRL. Extraocular movements intact. Clear conjunctiva CARDIOVASCULAR: Irregular rate and rhythm. No murmurs, rubs, or gallops LUNGS: Clear to auscultation bilaterally. No wheezes. No rhonchi ABDOMEN: Soft, nontender, nondistended. Positive bowel sounds. Normal active bowel sounds NEUROLOGICAL: Alert and oriented times three. Cranial nerves II through XII grossly intact. Sensation grossly intact EXTREMITIES: 5\5 strength bilateral upper extremities. 4\5 strength right lower extremity. 4/5 strength in left lower extremity. (+) bilat calf edema (improving) (+) Jonathan's bilat (+) mild TTP bilat ankles (improving), no local swelling, however generalized edema (improving) SKIN: right calf ecchymosis ASSESSMENT:64-year-old M with past medical history of CKD4, mobid obesity, PE/DVTs who presents status post worsening LE edema thought to be due to DVTs and CHF. PLAN: 1. Rehab- PT/OT advance gait training and ADLs, incorporate lymphatic massage to help alleviate bilat LE swelling, ambulating with RW-room privileges -monitor for shortness of breath/exertion, and modulate therapy for max RPE of 4 (moderate exertion) 2. Neuro: stable 3. 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 Resp: encourage incentive spirometry monitor for signs of infection 5. Vasc: hx of PE/DVT, now with bilat occlusive CFV DVTs, c/u Eliquis 5mg BID, +IVC filter 6. Renal: CKD4, nephrology assisting with fluid management in setting of CKD- recs greatly appreciated -Hyponatremia stable on fluid restriction 7. Endo: pmh DM c/u glyburide and ISS, adjust prn 8. GI ppx: protonix BID 9. DVT: c/u eliquis 10. Pain: Tylenol prn and menthol salicylate to bilat ankles -gout flare, uric acid elevate 8.8, patient reports his ankle pain has improved with steroids, c/u prednisone 20 BID, will taper -c/u allopurinol, will avoid colchicine with poor renal function and prednisone alone seems to be working 11. Dispo: 09-18-19 to home, progressing towards goals Allergies Coded Allergies: No Known Drug Allergies (Verified Allergy, Unknown, 09/01/19) Vital Signs Vital Signs Date Time Temp Pulse Resp B/P (MAP) Pulse Ox O2 Delivery O2 Flow Rate FiO2 09/18/19 08:19 60 136/84 09/18/19 06:00 97.6 18 98 Room Air Laboratory Data Labs 24H Laboratory Tests 2 09/17/19 12:11: Bedside Glucose (Misc Panel) 65L 09/17/19 16:48: Bedside Glucose (Misc Panel) 141H 09/17/19 19:30: Bedside Glucose (Misc Panel) 240H 09/18/19 05:48: Bedside Glucose (Misc Panel) 154H Current Medications Current Medications Current Medications Medications (Trade) Dose Ordered Sig/Vinny Route PRN Reason Start Time Stop Time Status Last Admin Dose Admin Acetaminophen (Tylenol Tab) 650 mg Q4HP PRN PO fever/pain 09/05/19 17:30 09/13/19 13:11 Allopurinol (Zyloprim) 100 mg DAILY PO 09/06/19 09:00 09/13/19 08:31 DC 09/12/19 08:00 Allopurinol (Zyloprim) 200 mg DAILY PO 09/13/19 09:00 09/18/19 08:19 Apixaban (Eliquis) 5 mg BID PO 09/11/19 21:00 09/18/19 08:18 Apixaban (Eliquis) 10 mg BID PO 09/05/19 21:00 09/11/19 09:01 DC 09/11/19 08:18 Aspirin (Aspirin Chewable) 81 mg DAILY PO 09/06/19 09:00 09/18/19 08:18 Atorvastatin Calcium (Lipitor) 10 mg DAILY PO 09/06/19 09:00 09/18/19 08:18 Carvedilol (COReg) 3.125 mg BID PO 09/11/19 21:00 09/18/19 08:19 Carvedilol (COReg) 6.25 mg BID PO 09/05/19 21:00 09/11/19 12:06 DC 09/11/19 08:18 Dextrose (Dextrose 50%) 25 ml ASDIRECTED PRN IV SEE LABEL COMMENTS 09/05/19 17:30 Docusate Sodium (Colace) 100 mg BID PO 09/05/19 21:00 09/17/19 20:43 Glucagon (Glucagon) 1 mg ASDIRECTED PRN SC SEE LABEL COMMENTS 09/05/19 17:30 Glucose (Glucose) 16 GM ASDIRECTED PRN PO SEE LABEL COMMENTS 09/05/19 17:30 Glyburide (Diabeta, Micronase) 1.25 mg DAILY@0730 PO 09/06/19 07:30 09/18/19 08:18 Insulin Human Lispro (HumaLOG INSULIN) SEE PROTOCOL TABLE AC SC 09/05/19 17:30 09/18/19 08:17 Insulin Human Lispro (HumaLOG INSULIN) SEE PROTOCOL TABLE QHS SC 09/05/19 21:00 Magnesium Hydroxide (Milk Of Magnesia) 30 ml DAILYPRN PRN PO CONSTIPATION 09/05/19 17:30 Menthol/Methyl Salicylate (Bengay Cream) bilat ankles TID TOP 09/12/19 21:00 09/17/19 20:43 Miscellaneous (Unresolved Clarification Entry) SEE LABEL COMMENTS DAILY XX 09/18/19 09:00 Pantoprazole Sodium (Protonix) 40 mg BID PO 09/05/19 21:00 09/18/19 08:18 Potassium Chloride (Micro-K Extencaps) 20 meq DAILY PO 09/13/19 09:00 09/15/19 12:58 DC 09/15/19 08:57 Prednisone (Deltasone) 20 mg BID PO 09/13/19 18:45 09/18/19 08:19 Senna (Senokot) 1 tab QHS PO 09/05/19 21:00 09/17/19 20:42 Spironolactone (Aldactone) 25 mg BID@0900,1700 PO 09/15/19 17:00 09/18/19 08:18 Spironolactone (Aldactone) 25 mg QAM PO 09/09/19 09:00 09/15/19 12:59 DC 09/15/19 08:55 Spironolactone (Aldactone) 50 mg BID@09,17 PO 09/06/19 09:00 09/06/19 11:22 DC 09/06/19 08:21 Spironolactone (Aldactone) 50 mg DAILY PO 09/07/19 09:00 09/07/19 09:23 DC Torsemide (Demadex) 20 mg BID@0900,1700 PO 09/10/19 17:00 09/11/19 19:20 DC 09/11/19 16:55 Torsemide (Demadex) 20 mg DAILY PO 09/06/19 12:45 09/07/19 09:23 DC 09/06/19 14:40 Torsemide (Demadex) 20 mg DAILY PO 09/09/19 09:00 09/10/19 11:42 DC 09/10/19 08:14 Torsemide (Demadex) 20 mg DAILY PO 09/13/19 09:00 09/12/19 13:00 DC Torsemide (Demadex) 30 mg BID@0900,1700 PO 09/15/19 17:00 09/18/19 08:19 Torsemide (Demadex) 30 mg DAILY PO 09/12/19 13:00 09/15/19 12:59 DC 09/15/19 08:55 YESY JORGE MD Sep 18, 2019 09:51
--- NOTE | 2019-09-18 12:13 | PMRDS ---
DATE OF ADMISSION: 09/05/2019 DATE OF DISCHARGE: CHIEF COMPLAINT/DISCHARGE DIAGNOSES: Bilateral lower extremity deep venous thrombosis (DVT) with chronic kidney disease (CKD) in setting of congestive heart failure (CHF). HISTORY OF PRESENT ILLNESS: This is a 64-year-old man with a past medical history of CHF with automatic implantable cardioverter defibrillator (AICD)/pacemaker, atrial fibrillation (AFib) status post atrial appendage removal, diabetes, DVT and pulmonary embolism (PE), CKD, CAD status post open heart surgery for mitral valve replacement, status post inferior vena cava (IVC) filter 4-5 years ago with worsening lower extremity swelling with pain and difficulty walking admitted to [facility] ([facility]) for possible CHF exacerbation versus PE. He was found to have bilateral proximal DVTs and there was concern for PE. However, given his renal function was not eligible for CTA. He had an echo performed on 09/01/2019, which did not show inferior vena cava increased pressures that suggested large PE. It did however show "mildly increased left ventricular wall thickness with mildly dilated left ventricle but a depressed global left ventricular systolic function. There was diffuse hypokinesis. The estimated left ventricular systolic ejection fraction is 30-35%. He was evaluated by vascular surgery who recommended switching back to oral anticoagulation from heparin drip and obtaining a hypercoagulable profile. He was switched to Eliquis and his diuretic held for acute kidney injury (MARK) on CKD. He was evaluated by therapy, noted to be well below his prior level of function and deemed medically appropriate for discharge to acute rehabilitation unit (ARU). PAST MEDICAL HISTORY: As per HPI. HOSPITAL COURSE: The patient was admitted and enrolled in a comprehensive physical therapy (PT), occupational therapy (OT) program. He received 24 hour nursing supervision and weekly team meetings were held to discuss his progress. The patient was evaluated and followed by renal for his CKD in the setting of worsening CHF, his diuretics were frequently adjusted and overall his fluid retention gradually improved. The patient developed bilateral ankle pain initially thought to be due to dependent edema in the setting of PEs and later was treated with oral prednisone for suspected gout with an elevated uric acid of 8.8. The patient's fingersticks throughout his hospital course were well controlled and his hyponatremia remained stable around 134. The patient made significant and steady gains in therapy, gradually building his endurance and was deemed medically and functionally stable to return home. Of note, the patient was evaluated by cardiac rehab and he is indeed a candidate, however referral/order will need to be sent per Dr. Perez his coremaker helper or Dr. Fam his renal physician. DISCHARGE MEDICATIONS: As per instructions. FUNCTIONAL HISTORY: On discharge, the patient was modified independent for ambulation, able to walk with a rolling walker 150 feet and negotiate stairs. In occupational therapy, he was modified independent for all functional transfers, upper and lower body dressing. Thank you for this referral.
== END 2019-09-18 13:30 | disposition home or self-care (01) | DRG 299 ==
LOC: M PM&R 15:08
PROVIDERS: ADMIT Physical Medicine & Rehabilitation; ATTEND Physical Medicine & Rehabilitation
DX: I82.503 Chronic embolism and thrombosis of unspecified deep veins of lower extremity, bilateral (principal); I50.43 Acute on chronic combined systolic (congestive) and diastolic (congestive) heart failure; N18.4 Chronic kidney disease, stage 4 (severe); E87.1 Hypo-osmolality and hyponatremia; N17.9 Acute kidney failure, unspecified; I48.91 Unspecified atrial fibrillation; I25.10 Atherosclerotic heart disease of native coronary artery without angina pectoris; Z79.899 Other long term (current) drug therapy; Z79.82 Long term (current) use of aspirin; E66.01 Morbid (severe) obesity due to excess calories; Z86.711 Personal history of pulmonary embolism; M10.30 Gout due to renal impairment, unspecified site; E11.9 Type 2 diabetes mellitus without complications; Z95.0 Presence of cardiac pacemaker; D63.1 Anemia in chronic kidney disease; I95.1 Orthostatic hypotension; Z79.01 Long term (current) use of anticoagulants

== ENCOUNTER 2019-12-06 09:37 | Outpatient (RCR) | payer MEDICARE, MEDICAID ==
--- NOTE | 2019-11-16 10:14 | CARECAPL ---
Assessment Account #s: Initial Assessment General Diagnoses: MVR, CHF (35-40%) Date of event: Sep 05, 2019 Physician: MADHURI REEVES MD Allergies: Coded Allergies: No Known Drug Allergies (Verified Allergy, Unknown, 09/01/19) Date Entered Program: Nov 16, 2019 Risk strat for cardiac event: High Exercise Date: Nov 16, 2019 Assessment: Initial Assessment Stages of change: Contemplate Exercise Prescription Plan to build strength and endurance through a monitored exercise program. To educate about cardiac disease and CHF teaching Modalities initiated: Treadmill (will add), Cardio-Strider (will add), Nustep (will add), Arm Aerometer (will add), Dumbells (will add), Recumbent Bike (will add) Frequency: 2 Duration (Minutes) 30 - 60 minutes total exercise a day. 15 - 20 work intervals in minutes. PRN rest intervals in minutes. Functional Capacity Goal Sustained Metabolic Equivalent of a task (MET) goal of 2.5-3.5 for 15-20 minutes. Intensity: 3-Moderate Progression (METS) Increase by: .5 METS every: 2-3 sessions Angina with ex: No Target Heart Rate rest 35-45 Resistance Training: Yes Reps: 6-8 Hypertension: Yes Hypertension controlled with: Medication Resting 142/76 Meds see below Medications Scheduled Allopurinol (Allopurinol), 100 MG PO DAILY, (Reported) Apixaban (Eliquis), 5 MG PO BID Aspirin (Aspirin EC), 81 MG PO DAILY, (Reported) Atorvastatin Calcium (Atorvastatin Calcium), 10 MG PO daily , (Reported) Carvedilol (Carvedilol), 6.25 MG PO BID, (Reported) Furosemide (Furosemide), 80 MG PO BID, (Reported) Glyburide (Glyburide), 1.25 MG PO DAILY, (Reported) Potassium Chloride (K-Tab ER), 3 TAB PO BID, (Reported) Spironolactone (Aldactone), 25 MG PO BID@0900,1700 Discontinued Medications Allopurinol (Allopurinol), 200 MG PO DAILY Discontinued Reason: PCP discontinued med Aspirin (Children's Aspirin), 81 MG PO DAILY Discontinued Reason: PCP discontinued med Atorvastatin Calcium (Atorvastatin Calcium), 10 MG PO DAILY Discontinued Reason: PCP discontinued med Carvedilol (Carvedilol), 3.125 MG PO BID Discontinued Reason: PCP discontinued med Glyburide (Glyburide), 1.25 MG PO DAILY@0730 Discontinued Reason: PCP discontinued med Pantoprazole Sodium (Pantoprazole Sodium), 40 MG PO BID Discontinued Reason: PCP discontinued med Prednisone (Prednisone), 1 TAB PO ASDIRECTED Discontinued Reason: PCP discontinued med Torsemide (Torsemide), 30 MG PO BID@0900,1700 Discontinued Reason: PCP discontinued med Target Goals Individual exercise Rx (1) BP 140/90 or 130/80 if DM or CKD (1) Aerobic active 30+min 5 days per week (1) Nutrition Date: Nov 16, 2019 Assessment: Initial Assessment Lipids Lipid med/supplement (Lipitor) Lipid- med/supplement lipitor Diabetes Diabetes: Yes (will request records for bloodwork) Diabetes medication glyburide Monitor Blood Sugar at home: No Weight Management Weight (lbs): 308.6 Height (inches): 72 Waist Circumference (Inches): 54 BMI: 41.8 Weight goal: 275 Special Diet: regular Alcohol: none Diet Access Tool: Rate your plate Score: 44 Target goal LDL-C<100 if triglycerides are >200 Non-HDL-C should be <130 (1) LDL-C<70 for high risk patients (4) HbA1c<7% (1) BMI<25 Waist cir<40in M/<35in F (1) Education Date: Nov 16, 2019 Assessment: Initial Assessment Learning Barriers: ready, learn Knowledge Test Score: 8 Stages of change: Contemplate Quit: never smoked Intervention Referral to smoking cessation: No Individual education and couns: No Tobacco Adjunct: No Target Goals Complete cessation of tobacco use (1). Psychosocial Date: Nov 16, 2019 Assessment: Initial Assessment Psych Test (Initial/Discharge) Tool Used: Other Score: 0 Stages of change: Preperation Intervention Physician Consult: No Physician Referral: No Target Goal Assess presence or absence of depression using a valid screening tool (1). Maximize coping skills (2). Positive support system (2). Patient/Program Goal Preventative Medication: Yes Aspirin, Yes Beta blockade, Yes Statin/OTR lipid Lowering Fall Risk Assess: No ( 10 seconds) Provider Assessment Provider Assessment: Proceed with rehab Clemencia Champion RN Nov 16, 2019 10:14
[2019-11-22 09:21] VITALS: BP 98/60
[2019-11-22 10:05] VITALS: BP 124/66
[2019-11-22 10:39] VITALS: BP 124/70
[2019-11-29 09:20] VITALS: BP 110/70
[2019-11-29 09:36] VITALS: BP 140/80
[2019-11-29 10:27] VITALS: BP 124/80
[2019-12-01 11:07] VITALS: BP 108/78
[2019-12-01 11:08] VITALS: BP_SYST 110; BP_SYST 120; BP_DIAS 62; BP_DIAS 80
[~2019-12-06] VITALS: Ht 182.9 cm; Wt 137.7 kg
[~2019-12-06 09:37] MED LIST changes: +ALDA25TA2 PO; +ALLO10TA PO; +ASPI81CH8 PO; +CARV3.12 PO; +ELIQ5TAB PO; +GLYB25TA PO; +K-TA10TA2 PO; +PANT40TA3 PO; +PRED5TA PO; +TORS10TA3 PO
[2019-12-06 10:00] VITALS: BP_SYST 104; BP_SYST 112; BP_SYST 134; BP_DIAS 60; BP_DIAS 80; BP_DIAS 84
== END 2019-12-09 ==
LOC: M CR 09:37
PROVIDERS: ATTEND Internal Medicine Cardiovascular Disease
DX: I34.1 Nonrheumatic mitral (valve) prolapse (principal)

== ENCOUNTER 2019-12-11 08:58 | Outpatient (RCR) | payer MEDICARE, MEDICAID ==
[~2019-12-11] VITALS: Ht 167.6 cm; Wt 139.5 kg
[2019-12-11 09:13] VITALS: BP 138/78
[2019-12-11 09:45] VITALS: BP 142/78
[2019-12-11 10:57] VITALS: BP 130/78
--- NOTE | 2019-12-14 13:54 | CARECAPL ---
Assessment Account #s: Re-Assessment I General Diagnoses: MVR, CHF (35-40%) Date of event: Sep 05, 2019 Physician: MADHURI REEVES MD Allergies: Coded Allergies: No Known Drug Allergies (Verified Allergy, Unknown, 09/01/19) Date Entered Program: Nov 16, 2019 Risk strat for cardiac event: High Exercise Assessment: Re-Assessment I Stages of change: Preperation Exercise Prescription Modalities initiated: Treadmill (1.0 5 MINUTES MTS 1.77 RPE 4), Nustep (L5 MTS 2.3 RPE 3), Arm Aerometer (2.5 10 MINUTES MTS 2.0 RPE 2), Dumbells, Recumbent Bike (R2 10 MINUTES MTS 2.6 RPE 4) Frequency: 2-3 Duration (Minutes) 30 - 60 minutes total exercise a day. 15 - 20 work intervals in minutes. PRN rest intervals in minutes. Functional Capacity Goal Sustained Metabolic Equivalent of a task (MET) goal of 2.5-3.5 for 15-20 minutes. Intensity: 3-Moderate Progression (METS) Increase by: METS every: sessions Angina with ex: No Resistance Training: Yes Weight (pounds): 3 Reps: 6-8 Hypertension: Yes Hypertension controlled with: Medication Resting 138/78 Peak Exercise BP 142/78 Meds SEE BELOW Medications Scheduled Allopurinol (Allopurinol), 100 MG PO DAILY, (Reported) Apixaban (Eliquis), 5 MG PO BID Aspirin (Aspirin EC), 81 MG PO DAILY, (Reported) Atorvastatin Calcium (Atorvastatin Calcium), 10 MG PO daily , (Reported) Carvedilol (Carvedilol), 6.25 MG PO BID, (Reported) Furosemide (Furosemide), 80 MG PO BID, (Reported) Glyburide (Glyburide), 1.25 MG PO DAILY, (Reported) Potassium Chloride (K-Tab ER), 3 TAB PO BID, (Reported) Spironolactone (Aldactone), 25 MG PO BID@0900,1700 Current BP 130/78 Med Change: No Intervention Home exercise: Type (walking, hand weights, join local gym), Frequency (3-4 times a week), Duration (30-60 minutes) Resistance Training: Yes (pt demonstrates taking selft pulse) Education: Self pulse, Ex safety (pt states understanding of safe exercise . reporting chest pain, ,warm up/cool down ), S/S to report (verbalizes understanding to report chestpain /sob), Low NA diet (understanding of low na diet, not adding salt to food.), BP medication (reveiwed all bp MEDS AND SIDE AFFECTS), RPE Scale (DEMONSTRATES EFFORT SCALE INDEPENTLY), Equipment orientation (PT USES EXERCISE EQUIPMENT WITH MINIMAL ASSISTANCE), warm up/cool down (DEMONSTRATES INDEPENDENTLY WARM UP AND COOL DOWN), Understand BP (PT VERBALEZES KNOWLEDGE OF UNDERSTANDING OF BP AND IDEAL BP), Physical Active (PT VERBALIZES KNOWLEDGE OF IMPORTANCE OF CONTINUED EXERCISE FOLLOWING CARDIAC REHAB PROGRAM) Education Goals Met: Yes Target Goals Individual exercise Rx (1) BP 140/90 or 130/80 if DM or CKD (1) Aerobic active 30+min 5 days per week (1) Nutrition Date: Dec 14, 2019 Assessment: Re-Assessment I Stages of change: Preperation Current Weight (pounds): 303.8 Weight Goal 250 Intervention Diet Class: Yes (SEEN RESEARCH AND DEVELOPMENT ENGINEER ON 11/20/19) Target goal LDL-C<100 if triglycerides are >200 Non-HDL-C should be <130 (1) LDL-C<70 for high risk patients (4) HbA1c<7% (1) BMI<25 Waist cir<40in M/<35in F (1) Education Date: Dec 14, 2019 Assessment: Re-Assessment I Intervention Referral to smoking cessation: No Individual education and couns: No Tobacco Adjunct: No Education class schedule given: Yes Attended education classes: Yes Education: CAD, Risk factors, med compliance, cardiac A&P, Angina S/S, Sexuality (NARAYAN EDUCATION GIVEN ON ALL TOPICS) Education Goals Met: Yes Target Goals Complete cessation of tobacco use (1). Psychosocial Assessment: Re-Assessment I Stages of change: Preperation Stress Management Class: Yes Uses Stress Management Skills: Yes Education Education: Coping Techniques, S/S depression, Relaxation Techniques Education Goals Met: Yes (EDUCATED ON ALL ASPECTS OF COPING TECHNIQUES, S/S OF DEPRESSION AND RELAXATION TECHNIQUES) Target Goal Assess presence or absence of depression using a valid screening tool (1). Maximize coping skills (2). Positive support system (2). Provider Assessment Session Number: 6 Provider Assessment: No changes Clemencia Champion RN Dec 14, 2019 13:54
[2019-12-18 09:04] VITALS: BP 112/76
[2019-12-18 09:40] VITALS: BP 122/70
[2019-12-18 10:51] VITALS: BP 112/74
[2019-12-25 09:28] VITALS: BP 118/76
[2019-12-25 09:57] VITALS: BP 128/80
[2019-12-25 11:09] VITALS: BP 122/78
--- NOTE | 2019-12-29 13:38 | CARECAPL ---
General Allergies: Coded Allergies: No Known Drug Allergies (Verified Allergy, Unknown, 09/01/19) Exercise Prescription Duration (Minutes) 30 - 60 minutes total exercise a day. 15 - 20 work intervals in minutes. PRN rest intervals in minutes. Functional Capacity Goal Sustained Metabolic Equivalent of a task (MET) goal of for minutes. Progression (METS) Increase by: METS every: sessions Medications Scheduled Allopurinol (Allopurinol), 100 MG PO DAILY, (Reported) Apixaban (Eliquis), 5 MG PO BID Aspirin (Aspirin EC), 81 MG PO DAILY, (Reported) Atorvastatin Calcium (Atorvastatin Calcium), 10 MG PO daily , (Reported) Carvedilol (Carvedilol), 6.25 MG PO BID, (Reported) Furosemide (Furosemide), 80 MG PO BID, (Reported) Glyburide (Glyburide), 1.25 MG PO DAILY, (Reported) Potassium Chloride (K-Tab ER), 3 TAB PO BID, (Reported) Spironolactone (Aldactone), 25 MG PO BID@0900,1700 Target Goals Individual exercise Rx (1) BP 140/90 or 130/80 if DM or CKD (1) Aerobic active 30+min 5 days per week (1) Target goal LDL-C<100 if triglycerides are >200 Non-HDL-C should be <130 (1) LDL-C<70 for high risk patients (4) HbA1c<7% (1) BMI<25 Waist cir<40in M/<35in F (1) Target Goals Complete cessation of tobacco use (1). Psychosocial Date: Dec 29, 2019 Target Goal Assess presence or absence of depression using a valid screening tool (1). Maximize coping skills (2). Positive support system (2). Provider Assessment Provider Assessment: No changes (cardiac rehab program closed d/t covid 19. pt account put on hold) Clemencia Champion RN Dec 29, 2019 13:38
== END 2020-01-09 ==
LOC: M CR 08:58
PROVIDERS: ATTEND Internal Medicine Cardiovascular Disease
DX: I34.1 Nonrheumatic mitral (valve) prolapse (principal)
CPT/HCPCS: 93798; G0424

== ENCOUNTER → 2023-10-05 | Outpatient (REF) | payer MEDICARE, MEDICAID ==
[~2023-10-05] MED LIST changes: +ALLO300T2 PO; +GLYB2.5T7 PO; -GLYB25TA PO; -K-TA10TA2 PO; +PANT40TA29 PO; -PANT40TA3 PO; +POTA-165 PO; +POTA-298 PO; -POTA1TAB14 PO
[2023-10-05 14:45] LABS: BASO % 0.5 % (0.0-1.0); EOS # 0.2 10^3/uL (0.0-0.5); EOS % 2.8 % (0.0-3.0); HEMATOCRIT 29.7 % (42.0-52.0); HEMOGLOBIN 9.5 g/dl (13.5-17.5); LYMPH # 0.7 10^3/uL (1.5-5.0); LYMPH % 9.8 % (24.0-44.0); MEAN CORPUSCULAR HEMOGLOBIN 31.1 pg (27.0-33.0); MEAN CORPUSCULAR VOLUME 97.4 fl (80.0-96.0); MONO # 0.7 10^3/uL (0.0-0.8); MONO % 9.2 % (2.0-8.0); NEUTROPHILS # 5.8 10^3/uL (1.5-8.5); NEUTROPHILS % 76.6 % (36.0-66.0); PLATELET COUNT, AUTOMATED 223 10^3/uL (150-450); RED BLOOD COUNT 3.05 10^6/uL (4.30-6.10); WHITE BLOOD COUNT 7.5 10^3/uL (4.0-10.0)
[2023-10-05 14:58] LABS: INR 2.94; PROTHROMBIN TIME 29.6 SECONDS (12.5-14.5)
[2023-10-05 15:14] LABS: BILIRUBIN,TOTAL 0.8 MG/DL (0.3-1.2); CREATININE FOR GFR 2.62 MG/DL (0.70-1.30); MAGNESIUM LEVEL 1.6 MG/DL (1.8-2.4); POTASSIUM SERUM 3.5 MMOL/L (3.5-5.1); TOTAL PROTEIN 5.9 G/DL (5.7-8.2)
== END ==
LOC: M LAB REF 14:26
PROVIDERS: ATTEND Internal Medicine Advanced Heart Failure and Transplant Cardiology
DX: I50.20 Unspecified systolic (congestive) heart failure (principal)

== ENCOUNTER → 2023-10-12 | Outpatient (REF) | payer MEDICARE, MEDICAID ==
[2023-10-12 13:48] LABS: BASO # 0.1 10^3/uL (0.0-0.2); BASO % 0.7 % (0.0-1.0); EOS # 0.3 10^3/uL (0.0-0.5); EOS % 3.4 % (0.0-3.0); HEMOGLOBIN 9.2 g/dl (13.5-17.5); LYMPH # 1.2 10^3/uL (1.5-5.0); LYMPH % 13.6 % (24.0-44.0); MEAN CORPUSCULAR HEMOGLOBIN 30.8 pg (27.0-33.0); MEAN CORPUSCULAR HGB CONC 31.7 g/dl (32.0-36.5); MONO # 0.7 10^3/uL (0.0-0.8); MONO % 8.2 % (2.0-8.0); NEUTROPHILS # 6.4 10^3/uL (1.5-8.5); NEUTROPHILS % 73.3 % (36.0-66.0); PLATELET COUNT, AUTOMATED 256 10^3/uL (150-450); RED BLOOD COUNT 2.99 10^6/uL (4.30-6.10); WHITE BLOOD COUNT 8.8 10^3/uL (4.0-10.0)
[2023-10-12 14:03] LABS: ALBUMIN 3.2 G/DL (3.2-5.2); BILIRUBIN,TOTAL 0.8 MG/DL (0.3-1.2); CALCIUM LEVEL 9.1 MG/DL (8.3-10.6); CREATININE FOR GFR 2.63 MG/DL (0.70-1.30); GLOMERULAR FILTRATION RATE 25.9 (>49); MAGNESIUM LEVEL 1.5 MG/DL (1.8-2.4); POTASSIUM SERUM 3.3 MMOL/L (3.5-5.1); TOTAL PROTEIN 6.2 G/DL (5.7-8.2)
[2023-10-12 14:04] LABS: INR 2.96; PROTHROMBIN TIME 29.7 SECONDS (12.5-14.5)
== END ==
LOC: M LAB REF 12:37
PROVIDERS: ATTEND Physician Assistant Surgical
DX: I50.22 Chronic systolic (congestive) heart failure (principal)

== ENCOUNTER → 2023-10-18 | Outpatient (REF) | payer MEDICARE, MEDICAID ==
[2023-10-18 13:55] LABS: BASO # 0.1 10^3/uL (0.0-0.2); BASO % 0.5 % (0.0-1.0); EOS # 0.2 10^3/uL (0.0-0.5); EOS % 1.6 % (0.0-3.0); HEMATOCRIT 28.3 % (42.0-52.0); HEMOGLOBIN 9.3 g/dl (13.5-17.5); LYMPH # 1.1 10^3/uL (1.5-5.0); MEAN CORPUSCULAR HEMOGLOBIN 31.1 pg (27.0-33.0); MEAN CORPUSCULAR HGB CONC 32.9 g/dl (32.0-36.5); MEAN CORPUSCULAR VOLUME 94.6 fl (80.0-96.0); MONO % 9.5 % (2.0-8.0); NEUTROPHILS # 7.8 10^3/uL (1.5-8.5); NEUTROPHILS % 75.7 % (36.0-66.0); PLATELET COUNT, AUTOMATED 270 10^3/uL (150-450); RED BLOOD COUNT 2.99 10^6/uL (4.30-6.10); WHITE BLOOD COUNT 10.3 10^3/uL (4.0-10.0)
[2023-10-18 14:08] LABS: INR 3.21; PROTHROMBIN TIME 31.6 SECONDS (12.5-14.5)
[2023-10-18 14:29] LABS: ALBUMIN 3.4 G/DL (3.2-5.2); BILIRUBIN,TOTAL 0.8 MG/DL (0.3-1.2); CALCIUM LEVEL 9.3 MG/DL (8.3-10.6); CREATININE FOR GFR 2.85 MG/DL (0.70-1.30); GLOMERULAR FILTRATION RATE 23.6 (>49); MAGNESIUM LEVEL 1.6 MG/DL (1.8-2.4); POTASSIUM SERUM 3.4 MMOL/L (3.5-5.1); TOTAL PROTEIN 6.3 G/DL (5.7-8.2)
== END ==
LOC: M LAB REF 13:43
PROVIDERS: ATTEND Physician Assistant Surgical
DX: I13.0 Hypertensive heart and chronic kidney disease with heart failure and stage 1 through stage 4 chronic kidney disease, or unspecified chronic kidney disease (principal)

== ENCOUNTER → 2023-10-26 | Outpatient (REF) | payer MEDICARE, MEDICAID ==
[2023-10-26 13:04] LABS: BASO % 0.5 % (0.0-1.0); EOS # 0.1 10^3/uL (0.0-0.5); EOS % 1.3 % (0.0-3.0); HEMATOCRIT 30.1 % (42.0-52.0); HEMOGLOBIN 9.9 g/dl (13.5-17.5); LYMPH # 1.2 10^3/uL (1.5-5.0); LYMPH % 14.2 % (24.0-44.0); MEAN CORPUSCULAR HEMOGLOBIN 31.1 pg (27.0-33.0); MEAN CORPUSCULAR HGB CONC 32.9 g/dl (32.0-36.5); MEAN CORPUSCULAR VOLUME 94.7 fl (80.0-96.0); MONO # 0.7 10^3/uL (0.0-0.8); MONO % 7.9 % (2.0-8.0); NEUTROPHILS # 6.4 10^3/uL (1.5-8.5); NEUTROPHILS % 74.9 % (36.0-66.0); PLATELET COUNT, AUTOMATED 272 10^3/uL (150-450); RED BLOOD COUNT 3.18 10^6/uL (4.30-6.10); WHITE BLOOD COUNT 8.5 10^3/uL (4.0-10.0)
[2023-10-26 13:27] LABS: INR 1.66
[2023-10-26 14:26] LABS: BILIRUBIN,TOTAL 0.7 MG/DL (0.3-1.2); CALCIUM LEVEL 9.1 MG/DL (8.3-10.6); CREATININE FOR GFR 2.73 MG/DL (0.70-1.30); GLOMERULAR FILTRATION RATE 24.8 (>49); MAGNESIUM LEVEL 1.7 MG/DL (1.8-2.4); POTASSIUM SERUM 2.9 MMOL/L (3.5-5.1)
== END ==
LOC: M LAB REF 12:15
PROVIDERS: ATTEND Nurse Practitioner Adult Health
DX: I13.0 Hypertensive heart and chronic kidney disease with heart failure and stage 1 through stage 4 chronic kidney disease, or unspecified chronic kidney disease (principal); I50.20 Unspecified systolic (congestive) heart failure

== ENCOUNTER → 2023-11-09 | Outpatient (REF) | payer MEDICARE, MEDICAID ==
[2023-11-09 13:03] LABS: BASO # 0.1 10^3/uL (0.0-0.2); EOS # 0.2 10^3/uL (0.0-0.5); EOS % 3.5 % (0.0-3.0); HEMATOCRIT 29.7 % (42.0-52.0); HEMOGLOBIN 9.4 g/dl (13.5-17.5); LYMPH % 16.9 % (24.0-44.0); MEAN CORPUSCULAR HEMOGLOBIN 30.4 pg (27.0-33.0); MEAN CORPUSCULAR HGB CONC 31.6 g/dl (32.0-36.5); MEAN CORPUSCULAR VOLUME 96.1 fl (80.0-96.0); MONO # 0.7 10^3/uL (0.0-0.8); MONO % 11.5 % (2.0-8.0); NEUTROPHILS # 3.8 10^3/uL (1.5-8.5); NEUTROPHILS % 65.7 % (36.0-66.0); PLATELET COUNT, AUTOMATED 268 10^3/uL (150-450); RED BLOOD COUNT 3.09 10^6/uL (4.30-6.10); WHITE BLOOD COUNT 5.8 10^3/uL (4.0-10.0)
[2023-11-09 13:17] LABS: INR 1.97; PROTHROMBIN TIME 21.7 SECONDS (12.5-14.5)
[2023-11-09 13:33] LABS: C REACTIVE PROTEIN QUANTITATIV 1.4 MG/DL (<1.0)
[2023-11-09 13:35] LABS: ALBUMIN 2.7 G/DL (3.2-5.2); BILIRUBIN,TOTAL 0.6 MG/DL (0.3-1.2); CALCIUM LEVEL 8.7 MG/DL (8.3-10.6); CREATININE FOR GFR 1.86 MG/DL (0.70-1.30); GLOMERULAR FILTRATION RATE 38.7 (>49); MAGNESIUM LEVEL 1.4 MG/DL (1.8-2.4); POTASSIUM SERUM 3.9 MMOL/L (3.5-5.1); TOTAL PROTEIN 5.7 G/DL (5.7-8.2)
== END ==
LOC: M LAB REF 12:01
PROVIDERS: ATTEND Nurse Practitioner Adult Health
DX: I13.0 Hypertensive heart and chronic kidney disease with heart failure and stage 1 through stage 4 chronic kidney disease, or unspecified chronic kidney disease (principal); Z79.01 Long term (current) use of anticoagulants

== ENCOUNTER → 2023-11-15 | Outpatient (REF) | payer MEDICARE, MEDICAID ==
[2023-11-15 12:03] LABS: BASO # 0.1 10^3/uL (0.0-0.2); BASO % 0.8 % (0.0-1.0); EOS # 0.1 10^3/uL (0.0-0.5); HEMATOCRIT 28.5 % (42.0-52.0); HEMOGLOBIN 9.1 g/dl (13.5-17.5); LYMPH # 0.9 10^3/uL (1.5-5.0); LYMPH % 13.1 % (24.0-44.0); MEAN CORPUSCULAR HEMOGLOBIN 31.1 pg (27.0-33.0); MEAN CORPUSCULAR HGB CONC 31.9 g/dl (32.0-36.5); MEAN CORPUSCULAR VOLUME 97.3 fl (80.0-96.0); MONO # 0.6 10^3/uL (0.0-0.8); MONO % 9.3 % (2.0-8.0); NEUTROPHILS # 4.9 10^3/uL (1.5-8.5); NEUTROPHILS % 73.3 % (36.0-66.0); PLATELET COUNT, AUTOMATED 241 10^3/uL (150-450); RED BLOOD COUNT 2.93 10^6/uL (4.30-6.10); WHITE BLOOD COUNT 6.7 10^3/uL (4.0-10.0)
[2023-11-15 12:14] LABS: INR 1.77
[2023-11-15 12:32] LABS: C REACTIVE PROTEIN QUANTITATIV 1.6 MG/DL (<1.0)
[2023-11-15 12:34] LABS: ALBUMIN 2.8 G/DL (3.2-5.2); BILIRUBIN,TOTAL 0.6 MG/DL (0.3-1.2); CALCIUM LEVEL 8.8 MG/DL (8.3-10.6); CREATININE FOR GFR 1.96 MG/DL (0.70-1.30); GLOMERULAR FILTRATION RATE 36.4 (>49); MAGNESIUM LEVEL 1.4 MG/DL (1.8-2.4); POTASSIUM SERUM 4.3 MMOL/L (3.5-5.1); TOTAL PROTEIN 5.8 G/DL (5.7-8.2)
== END ==
LOC: M LAB REF 11:23 → M LABDRAWC 11:23
PROVIDERS: ATTEND Nurse Practitioner Adult Health
DX: I13.0 Hypertensive heart and chronic kidney disease with heart failure and stage 1 through stage 4 chronic kidney disease, or unspecified chronic kidney disease (principal); Z79.01 Long term (current) use of anticoagulants

== ENCOUNTER → 2023-11-22 | Outpatient (REF) | payer MEDICARE, MEDICAID ==
[2023-11-22 13:19] LABS: BASO # 0.1 10^3/uL (0.0-0.2); BASO % 0.6 % (0.0-1.0); EOS # 0.1 10^3/uL (0.0-0.5); EOS % 1.6 % (0.0-3.0); HEMATOCRIT 27.3 % (42.0-52.0); HEMOGLOBIN 8.6 g/dl (13.5-17.5); LYMPH # 0.9 10^3/uL (1.5-5.0); LYMPH % 11.4 % (24.0-44.0); MEAN CORPUSCULAR HEMOGLOBIN 30.4 pg (27.0-33.0); MEAN CORPUSCULAR HGB CONC 31.5 g/dl (32.0-36.5); MEAN CORPUSCULAR VOLUME 96.5 fl (80.0-96.0); MONO # 0.8 10^3/uL (0.0-0.8); MONO % 9.1 % (2.0-8.0); NEUTROPHILS # 6.2 10^3/uL (1.5-8.5); NEUTROPHILS % 75.7 % (36.0-66.0); PLATELET COUNT, AUTOMATED 254 10^3/uL (150-450); RED BLOOD COUNT 2.83 10^6/uL (4.30-6.10); WHITE BLOOD COUNT 8.2 10^3/uL (4.0-10.0)
[2023-11-22 13:39] LABS: C REACTIVE PROTEIN QUANTITATIV 1.8 MG/DL (<1.0)
[2023-11-22 13:41] LABS: ALBUMIN 2.9 G/DL (3.2-5.2); BILIRUBIN,TOTAL 0.5 MG/DL (0.3-1.2); CALCIUM LEVEL 8.7 MG/DL (8.3-10.6); CREATININE FOR GFR 2.14 MG/DL (0.70-1.30); GLOMERULAR FILTRATION RATE 32.9 (>49); MAGNESIUM LEVEL 1.4 MG/DL (1.8-2.4); POTASSIUM SERUM 4.4 MMOL/L (3.5-5.1); TOTAL PROTEIN 5.8 G/DL (5.7-8.2)
[2023-11-22 13:47] LABS: INR 1.84; PROTHROMBIN TIME 20.7 SECONDS (12.5-14.5)
== END ==
LOC: M LAB REF 12:32
PROVIDERS: ATTEND Nurse Practitioner Adult Health
DX: I13.0 Hypertensive heart and chronic kidney disease with heart failure and stage 1 through stage 4 chronic kidney disease, or unspecified chronic kidney disease (principal); Z79.01 Long term (current) use of anticoagulants

== ENCOUNTER 2023-12-28 11:47 | Emergency (ER) | payer MEDICAID, MEDICARE, OTHER ==
[2023-12-28] VITALS (9 sets, daily range): BP systolic 129–132; BP diastolic 75–77; TEMP 96.6–97.7; O2SAT 82–94
[~2023-12-28] VITALS: Ht 182.9 cm; Wt 118.4 kg
[2023-12-28 12:41] LABS: VENOUS PARTIAL PRESSURE CO2 43.7 mmHg (38.0-50.0); VENOUS PARTIAL PRESSURE O2 29.5 mmHg (30.0-50.0); VENOUS PH 7.367 UNITS (7.330-7.430)
[2023-12-28 12:42] LABS: VENOUS BASE EXCESS -0.8 (-2.0-2.0); VENOUS HCO3 24.5 MMOL/L (23.0-27.0); VENOUS O2 SATURATION 49.3 % (60.0-80.0); VENOUS STANDARD HCO3 23.3 MMOL/L; VENOUS TOTAL CO2 25.9 MMOL/L (24.0-28.0)
[2023-12-28 12:49] LABS: BASO % 0.1 % (0.0-1.0); EOS # 0.2 10^3/uL (0.0-0.5); EOS % 1.5 % (0.0-3.0); LYMPH # 0.6 10^3/uL (1.5-5.0); LYMPH % 5.5 % (24.0-44.0); MEAN CORPUSCULAR HEMOGLOBIN 27.4 pg (27.0-33.0); MEAN CORPUSCULAR HGB CONC 30.7 g/dl (32.0-36.5); MEAN CORPUSCULAR VOLUME 89.3 fl (80.0-96.0); MONO # 0.9 10^3/uL (0.0-0.8); MONO % 7.8 % (2.0-8.0); NEUTROPHILS # 9.6 10^3/uL (1.5-8.5); PLATELET COUNT, AUTOMATED 304 10^3/uL (150-450); RED BLOOD COUNT 1.97 10^6/uL (4.30-6.10); WHITE BLOOD COUNT 11.4 10^3/uL (4.0-10.0)
[2023-12-28 12:58] LABS: HEMATOCRIT 17.6 % (42.0-52.0)
[2023-12-28 12:59] LABS: HEMOGLOBIN 5.4 g/dl (13.5-17.5)
[2023-12-28 13:00] LABS: INR 1.96; PROTHROMBIN TIME 21.7 SECONDS (12.5-14.5)
[2023-12-28 13:12] LABS: C REACTIVE PROTEIN QUANTITATIV 1.9 MG/DL (<1.0)
[2023-12-28 13:13] LABS: ALBUMIN 2.6 G/DL (3.2-5.2); BILIRUBIN,DIRECT 0.5 MG/DL (<0.4); BILIRUBIN,TOTAL 0.7 MG/DL (0.3-1.2); CALCIUM LEVEL 8.3 MG/DL (8.3-10.6); CK-MB VALUE MASS 3.8 NG/ML (<3.6); CREATININE FOR GFR 3.18 MG/DL (0.70-1.30); GLOMERULAR FILTRATION RATE 20.8 (>49); MB/CK RELATIVE INDEX 13.1 (< OR =4); POTASSIUM SERUM 4.5 MMOL/L (3.5-5.1); TOTAL PROTEIN 5.4 G/DL (5.7-8.2)
[2023-12-28 13:15] LABS: THYROID STIMULATING HORMONE 11.208 uIU/ML (0.55-4.78); THYROXINE (T4) 7.6 UG/DL (4.5-10.9)
[2023-12-28 13:18] LABS: RSV AMPLIFICATION NEGATIVE (NEGATIVE)
[2023-12-28 13:25] LABS: PROCALCITONIN 0.52 ng/ml
[2023-12-28] MEDS: PANTOPRAZOLE 40MG VIAL IV ONE (13:28)
[2023-12-28 14:14] LABS: CK-MB VALUE MASS 5.2 NG/ML (<3.6)
[2023-12-28 14:16] LABS: MB/CK RELATIVE INDEX 12.38 (< OR =4)
[2023-12-28] MEDS: PANTOPRAZOLE SODIUM 40 MG in D5W 50 ML IV SCH (19:39)
[2023-12-28 21:58] LABS: HEMATOCRIT 20.1 % (42.0-52.0); HEMOGLOBIN 6.4 g/dl (13.5-17.5)
[2023-12-28] MEDS: BISACODYL 10MG SUPP PR ONE (22:32)
[2023-12-29 01:10] LABS: HEMATOCRIT 24.6 % (42.0-52.0); HEMOGLOBIN 7.9 g/dl (13.5-17.5)
[2023-12-29 01:34] LABS: CALCIUM LEVEL 8.6 MG/DL (8.3-10.6); CREATININE FOR GFR 3.24 MG/DL (0.70-1.30); GLOMERULAR FILTRATION RATE 20.4 (>49); POTASSIUM SERUM 4.7 MMOL/L (3.5-5.1)
[2023-12-29 07:46] VITALS: BP 116/94
[2023-12-29 08:43] LABS: APPEARANCE, URINE CLEAR (CLEAR); BACTERIA, URINE AUTO NEGATIVE (NEGATIVE); BILIRUBIN, URINE AUTO NEGATIVE (NEGATIVE); BLOOD, URINE BLOOD NEGATIVE (NEGATIVE); COLOR, URINE YELLOW (YELLOW); GLUCOSE, URINE (UA) AUTO NEGATIVE (NEGATIVE); KETONE, URINE AUTO NEGATIVE (NEGATIVE); LEUKOCYTE ESTERASE, URINE AUTO NEGATIVE (NEGATIVE); NITRITE, URINE AUTO NEGATIVE (NEGATIVE); PROTEIN, URINE AUTO NEGATIVE (NEGATIVE); RBC, URINE AUTO 0 /HPF (0-3); SPECIFIC GRAVITY URINE AUTO 1.011 (1.002-1.035); SQUAMOUS EPITHELIAL CELL UR AU 0 /HPF (0-6); UROBILINOGEN, URINE AUTO 0.2 mg/dL (0.0-2.0); WBC, URINE AUTO 0 /HPF (0-3)
[2023-12-29 09:09] LABS: CREATININE, URINE 48.3 MG/DL; CREATININE,RANDOM URINE 48.3 MG/DL; MAU/CREAT RATIO 99.3 MCG/MG (0.0-30.0)
[2023-12-29 09:13] LABS: CHLORIDE,RANDOM URINE 19.99999 MMOL/L; SODIUM,RANDOM URINE < 10 MMOL/L
[2023-12-29 10:10] VITALS: O2SAT 99
[2023-12-29 10:35] VITALS: TEMP 97.2
== END 2023-12-29 10:37 | disposition short-term general hospital (02) ==
LOC: EDBD 11:47 → M ED 13:16
DX: N17.9 Acute kidney failure, unspecified (principal); N18.9 Chronic kidney disease, unspecified; I10 Essential (primary) hypertension; E11.9 Type 2 diabetes mellitus without complications; Z95.0 Presence of cardiac pacemaker; Z95.4 Presence of other heart-valve replacement; Z79.01 Long term (current) use of anticoagulants; Z79.02 Long term (current) use of antithrombotics/antiplatelets; Z79.810 Long term (current) use of selective estrogen receptor modulators (SERMs); Z79.899 Other long term (current) drug therapy
CPT/HCPCS: 71045; 80048; 80076; 81001; 82043; 82436; 82550; 82553; 82570; 82803; 83605; 83880; 83935; 84133; 84145; 84300; 84436; 84443; 84484; 85014; 85018; 85025; 85610; 86140; 86850; 86900; 86901; 86920; 87040; 87631; 93005; 94760; 96365; 96366; 96375; 99285; C9113; P9016